=== PATIENT | male | born 1950 | race Caucasian/White ===

== ENCOUNTER 2018-08-27 11:31 | Outpatient (CLI) | payer MEDICARE, BC, SELFPAY ==
[2018-08-27 12:49] LABS: HGB 14.9 g/dL (13.5-17.5); Mean Corp. HGB Concentration 34.7 g/dL (32.0-36.0); Mean Corpuscular Hemoglobin 31.2 pg (27.0-33.0); Mean Corpuscular Volume 90.1 fL (80-95); Mean Platelet Volume 9.6 fL (8.0-11.0); Platelet Count 224 x1000/uL (130-400); RBC 4.77 m/cumm (4.50-6.00); RBC Distribution Width 12.4 % (11.8-14.1); White Blood Cell Count 7.56 k/cumm (4.4-10.8)
[2018-08-27 13:53] LABS: ALT 35 U/L (12-78); AST 31 U/L (15-37); Albumin 3.6 g/dL (3.4-5.0); Alkaline Phosphatase 89 U/L (46-116); Anion Gap 7.4 mmol/L (3-11); BUN 14 mg/dL (7-18); Bilirubin, Total 0.5 mg/dL (0.2-1.0); CO2 33.6 mmol/L (21.0-32.0); CREATININE 0.96 mg/dL (0.70-1.30); Calcium 9.4 mg/dL (8.5-10.1); Chloride 100 mmol/L (98-107); Cholesterol 243 mg/dL (50-200); Glucose 99 mg/dL (70-100); HDL Cholesterol 54 mg/dL (40-60); LDL CHOLESTEROL 166 mg/dL (<100); Potassium 3.7 mmol/L (3.5-5.1); Sodium 141 mmol/L (136-145); Total Protein 7.3 g/dL (6.4-8.2); Triglyceride 139 mg/dL (30-150)
== END 2018-08-27 11:51 ==
PROVIDERS: PCP Family Medicine; Visit Provider Family Medicine
DX: C85.91 Non-Hodgkin lymphoma, unspecified, lymph nodes of head, face, and neck (principal); I10 Essential (primary) hypertension; E78.5 Hyperlipidemia, unspecified
CPT/HCPCS: 36415; 80053; 80061; 83721; 85027

== ENCOUNTER 2019-08-29 11:49 | Outpatient (CLI) | payer MEDICARE, BC, SELFPAY ==
[2019-08-29 13:43] LABS: ALT 36 U/L (16-63); AST 26 U/L (15-37); Albumin 3.7 g/dL (3.4-5.0); Alkaline Phosphatase 85 U/L (46-116); Anion Gap 10.3 mmol/L (3-11); BUN 16 mg/dL (7-18); Bilirubin, Total 0.6 mg/dL (0.2-1.0); CO2 31.7 mmol/L (21.0-32.0); CREATININE 0.85 mg/dL (0.70-1.30); Calcium 9.2 mg/dL (8.5-10.1); Calculated LDL 149 mg/dL (<100); Chloride 97 mmol/L (98-107); Cholesterol 230 mg/dL (<200); Glucose 99 mg/dL (74-106); HDL Cholesterol 46 mg/dL (40-60); Potassium 3.2 mmol/L (3.5-5.1); Sodium 139 mmol/L (136-145); Total Protein 7.3 g/dL (6.4-8.2); Triglyceride 176 mg/dL (<150)
== END 2019-08-29 12:09 ==
PROVIDERS: PCP Family Medicine; Visit Provider Family Medicine
DX: I10 Essential (primary) hypertension (principal)
CPT/HCPCS: 36415; 80053; 80061

== ENCOUNTER 2021-02-25 04:45 | Outpatient (CLI) | payer MEDICARE, BC, SELFPAY ==
[2021-02-25 12:21] LABS: ALT 38 U/L (16-63); AST 31 U/L (15-37); Albumin 3.9 g/dL (3.4-5.0); Alkaline Phosphatase 89 U/L (46-116); Anion Gap 7.8 mmol/L (3-11); BUN 18 mg/dL (7-18); Bilirubin, Total 0.5 mg/dL (0.2-1.0); CO2 33.2 mmol/L (21.0-32.0); Calcium 9.4 mg/dL (8.5-10.1); Chloride 99 mmol/L (98-107); Glucose 99 mg/dL (74-106); Potassium 3.4 mmol/L (3.5-5.1); Sodium 140 mmol/L (136-145); Total Protein 7.4 g/dL (6.4-8.2)
== END 2021-02-25 04:46 | disposition home or self-care (01) ==
PROVIDERS: PCP Family Medicine; Visit Provider Family Medicine
DX: I10 Essential (primary) hypertension (principal)
CPT/HCPCS: 36415; 80053

== ENCOUNTER 2021-05-28 02:30 | Outpatient (CLI) | payer MEDICARE, BC, SELFPAY ==
--- NOTE | 2021-05-28 08:45 | DI.CT_ITS ---
Exam(s) CT ABDOMEN PELVIS W EXAM: CT ABDOMEN PELVIS W CLINICAL HISTORY: s/p hernia repair feels wrong,rt inguinal hernia,k40.90. TECHNIQUE: Imaging Protocol: Axial computed tomography images with coronal and sagittal reformatted images were created and reviewed CONTRAST MATERIAL: Intravenous: Omnipaque 350 Contrast volume:100 ml Oral: yes COMPARISON: No exams were available for comparison FINDINGS: ABDOMEN: Lung Bases: Normal where visualized. Liver: Normal density. No measurable mass. Gallbladder and biliary tract: No radiodense calculus or dilation. Pancreas: Normal density, no abnormal calcifications or inflammatory process. Spleen: Normal. Kidneys: Normal size, contour and axis. No radiodense stones or obstructive uropathy. No masses seen. Tiny bilateral cortical cysts Adrenal glands: No masses seen. Abdominal Aorta: Abdominal portion non-dilated. Atherosclerotic changes greater distally. Soft tissues: Small fatty containing umbilical hernia. PELVIS: Bladder: No gross wall thickening. No calculi.No focal mass. Bowel: Diverticulosis throughout, most prominent in the sigmoid. No evidence of diverticulitis. No obstruction or bowel wall thickening. Appendix normal. Peritoneal cavity: No ascites, collection or mesenteric inflammatory response. Bones: Severe degenerative disc changes. Reproductive organs: Within normal limits. Lymph nodes: Unremarkable. Soft tissues: Surgical clips in the right inguinal region. No evidence of recurrent hernia. No mass or fluid collection. Impression: No evidence for recurrent right inguinal hernia. Severe diverticulosis. No evidence of diverticulit is. RADIATION DOSE DELIVERED: 659.13mGy.cm Total DLP DATA REPOSITORY: All CT scans at this facility are submitted to the National Radiology Data Registry (NRDR) Dose Index Registry (DIR) with the [employer] (ACR). RADIATION OPTIMIZATION: All CT scans at this facility use at least one of these dose optimization te chniques: automated exposure control; mA and/or kV adjustment per patient size (includes targeted exa ms where dose is matched to clinical indication); or iterative reconstruction.
[2021-05-28] MEDS: Omnipaque 350 MG/ML 100 ML BTL IJ (15:13)
[2021-05-28] MEDS: Omnipaque 350 MG/ML 50 ML BTL PO (15:14)
[2021-05-28] MEDS: Breeza Beverage 473 ML BTL PO ×2 (15:14→15:15)
== END 2021-05-28 02:50 ==
PROVIDERS: PCP Family Medicine; Visit Provider Family Medicine
DX: K40.90 Unilateral inguinal hernia, without obstruction or gangrene, not specified as recurrent (principal); K42.9 Umbilical hernia without obstruction or gangrene; K57.30 Diverticulosis of large intestine without perforation or abscess without bleeding; Z98.890 Other specified postprocedural states; Z01.812 Encounter for preprocedural laboratory examination
CPT/HCPCS: 74177; 82565; J3490; Q9967

== ENCOUNTER 2022-01-20 02:18 | Outpatient (CLI) | payer MEDICARE, BC, SELFPAY ==
[2022-01-20 11:19] LABS: ALT 32 U/L (16-63); AST 29 U/L (15-37); Albumin 3.5 g/dL (3.4-5.0); Alkaline Phosphatase 84 U/L (46-116); Anion Gap 3.5 mmol/L (3-11); BUN 18 mg/dL (7-18); Bilirubin, Total 0.6 mg/dL (0.2-1.0); CO2 32.5 mmol/L (21.0-32.0); CREATININE 0.9 mg/dL (0.70-1.30); Calculated LDL 188 mg/dL (<100); Chloride 99 mmol/L (98-107); Cholesterol 267 mg/dL (<200); Glucose 109 mg/dL (74-106); HDL Cholesterol 62 mg/dL (40-60); Potassium 3.1 mmol/L (3.5-5.1); Sodium 135 mmol/L (136-145); Total Protein 7.7 g/dL (6.4-8.2); Triglyceride 89 mg/dL (<150)
[2022-01-20 19:50] LABS: PSA, Diagnostic 0.9 ng/mL (<=6.5)
== END 2022-01-20 02:19 | disposition home or self-care (01) ==
LOC: LBO 02:18
PROVIDERS: PCP Family Medicine; Visit Provider Family Medicine
DX: I10 Essential (primary) hypertension (principal); N40.0 Benign prostatic hyperplasia without lower urinary tract symptoms
CPT/HCPCS: 36415; 80053; 80061; 84153

== ENCOUNTER → 2022-06-17 00:48 | Outpatient (CLI) | payer MEDICARE, BC, SELFPAY ==
--- OUTSIDE RECORDS SUMMARY | 2022-06-17 00:50 | XMS_ITS | Encounter Summary ---
:1950 Author Organization [facility] [place] [address] Care Team Providers Name Role Phone Elizabeth Sanders MD Primary Care Provider Encounter Details Date Type Department Care Team Description 11/20/2013 Orders Only Radiation Oncology at CongEdis denson MD [address] RADIATION ONCOLOGY [facility] [phone] Social History Tobacco Use Types Packs/Day Years Used Date Smoking Tobacco: Former Cigarettes 08 22 Comments: quit 1996 Alcohol Use Standard Drinks/Week Comments No 0 (1 standard drink = 0.6 oz pure used to drink heavily, stopped alcohol) 1989 Sex Assigned at Date Recorded Not on file documented as of this encounter Plan of Treatment Not on filedocumented as of this encounter Procedures Procedure Name Priority Date/Time Associated Diagnosis Comme [facility] FILM LIBRARY Routine 11/20/2013 7:39 AM Results f or this STORAGE ONLY MR EDT procedure ar e in HEAD the results section. documented in this encounter Results Film Library- Storage only MR Head (11/20/2013 7:39 AM EDT) Anatomical Region Laterality Modality Other Specimen (Source) Anatomical Collection Method Collection Time Re ceived Time Location / / Volume Laterality 11/20/2013 7:39 AM EDT Narrative 11/21/2013 7:49 AM EDT This is a Non-reportable exam Procedure Note 11/21/2013 This is a Non-reportable exam Edis Gar MD IMG FILM LIBRARY ORDERABLES documented in this encounter Visit Diagnoses Not on filedocumented in this encounter Care Teams Felt Coverer Relationship Specialty Start Date End Date Elizabeth Sanders MD PCP - General 10/18/[address] [place] [address] documented as of this encounter
--- OUTSIDE RECORDS SUMMARY | 2022-06-17 00:50 | XMS_ITS | Encounter Summary ---
:1950 Author Organization [facility] Address [address] [place] [address] Care Team Providers Name Role Phone Elizabeth Sanders MD Primary Care Provider Encounter Details Date Type Department Care Team Description 11/14/2013 Notes Only Radiation Oncology at Masha Sharma, [facility] OFFICE OF CARE [address] [place] [phone] Social History Tobacco Use Types Packs/Day Years Used Date Smoking Tobacco: Former Cigarettes 30 Comments: quit 1996 Alcohol Use Standard Drinks/Week Comments No 0 (1 standard drink = 0.6 oz pure used to drink heavily, stopped alcohol) 1989 Sex Assigned at Date Recorded Not on file documented as of this encounter Progress Notes Masha Sharma MSW - 11/14/2013 2:14 PM EDT Reason for Referral: Brief assessment of social and emotional needs. Met with pt before sim today. Social Supports: Pt is single. He has a daughter in [facility] and a son in [facility]. He indicated he has plenty of people available for support. Living Situation/Daily Activities/Transportation: Pt manages his daily chores and activities. He will drive himself to treatments. 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 He does not have issues with finances or insurance. Advance Directives: Pt has completed his advance directives and a copy is in his record. Adjustment to Illness/Mental Health Issues: Pt indicated he feels well supported and has a positive outlook. Identified Needs: Pt did not identify any specific needs at thsis time. Referrals: None at this time. Plan: Informed pt of my availability and will follow for support and resources. documented in this encounter Plan of Treatment Not on filedocumented as of this encounter Visit Diagnoses Not on filedocumented in this encounter Care Teams Family Services Manager Relationship Specialty Start Date End Date Elizabeth Sanders MD PCP - General 10/18/[address] [place] [address] [address] [place] [address] documented as of this encounter
--- OUTSIDE RECORDS SUMMARY | 2022-06-17 00:50 | XMS_ITS | Encounter Summary ---
:1950 Author Organization [facility] [place] [address] Care Team Providers Name Role Phone Elizabeth Sanders MD Primary Care Provider Encounter Details Date Type Department Care Team Description 11/14/2013 Ancillary Appointment Radiation Oncology at Danitza Gar [facility] [address] [place], [place] RADIATION ONCOL OGY [address] [place], [place] [phone] (Wo rk) Social History Tobacco Use Types Packs/Day Years Used Date Smoking Tobacco: Former Cigarettes 08 22 Comments: quit 1996 Alcohol Use Standard Drinks/Week Comments No 0 (1 standard drink = 0.6 oz pure used to drink heavily, stopped alcohol) 1989 Sex Assigned at Date Recorded Not on file documented as of this encounter Progress Notes Edis Gar MD - 11/14/2013 10:03 AM EDT Simulation Note for External Beam Radiation Treatment Planning [facility] Shadi Falcon is a 63 y.o. 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 No changes were made from the plan as documented in the original simulationorder and instructions. Briefly, he was immobilized using a 3 point aquaplast custom mask and a 2.5mm slice thickness CT scan of the patient's head was then obtained. This scan was performed to delineate both target volumes and organs/structures at risk. These images will be used to create a customized treatment plan employing multileaf collimators and beams-eye view to treat the target to prescription dose while maximally sparing organs at risk, with the overall goal of maximizing the likelihood of a favorable disease response while minimizing the likelihood of any short term side effects or joint terminal attack controller complications of therapy. I anticipate his prescription dose will be 25.2 Gy to the right orbital mass, delivered in daily 1.8 Gy fractions over the course of 3 weeks. Anticipate therapy to begin within the next 10-14 days. Furthermore, I anticipate this patient will require 3D conformal treatment planning as multiple conformal portals will be contructed to adequate cover the volume of interest (in this case, the tumor)with close margins that protect immediately adjacent structures (including his lens, retina, and contralateral eye). The patient tolerated this procedure well, and was provided instructions with regard to upcoming appointments. documented in this encounter Procedure Notes Provider, Scanning - 11/20/2013 4:09 PM EDTAssociated Order(s): SCAN DOC: MRI/MRA documented in this encounter Plan of Treatment Not on filedocumented as of this encounter Procedures Procedure Name Priority Date/Time Associated Diagnosis Comme nts MRI/MRA SCAN 11/20/2013 4:09 PM Results f or this EDT procedure are i n the results section . documented in this encounter Results SCAN DOC: MRI/MRA (11/20/2013 4:09 PM EDT) Anatomical Region Laterality Modality Other Narrative 11/21/2013 7:27 AM EDT Procedure Note Provider, Scanning - 11/20/2013 4:09 PM EDT Scanning Provider MEDIA MGR SCAN EXT ORDR/RSLT documented in this encounter Visit Diagnoses Not on filedocumented in this encounter Care Teams Milk Receiver Tank Truck Relationship Specialty Start Date End Date Elizabeth Sanders MD PCP - General 10/18/[address] [place] [address] documented as of this encounter
--- OUTSIDE RECORDS SUMMARY | 2022-06-17 00:50 | XMS_ITS | Encounter Summary ---
:1950 Author Organization [facility] [place] [address] Care Team Providers Name Role Phone Elizabeth Sanders MD Primary Care Provider Encounter Details Date Type Department Care Team Description 05/14/2015 Interpretation Only Radiology at [facility] Ce nter None [address] [place] [address] Social History Tobacco Use Types Packs/Day Years [...] Name Priority Date/Time Associated Diagnosis Comme nts XR FLUORO NO RAD Routine 05/14/2015 6:27 AM Resul ts for this <1HR - RADIOLOGY EDT procedure a re in USE the results section. documented in this encounter Results XR Fluoro <1Hr - Radiology Use (05/14/2015 6:27 AM EDT) Anatomical Region Laterality Modality N/A Radiographic Imaging Specimen (Source) Anatomical Collection Method Collection Time Re ceived Time Location / / Volume Laterality 05/14/2015 6:27 AM EDT Narrative 05/14/2015 6:27 AM EDT APD Historical Result Principal Programmer: ??ADRIANA ??ESCHBACH IMAGE-INTENSIFIER FILMS: INDICATION: ??Left L4-5 facetectomy. FINDINGS: A total of 2.6 seconds of fluoro time wa s utilized by Clover Tim MD. ??Estimated dose is 1.87 mGy. ??Two lateral images of the l umbosacral junction are obtained. ??Surgical instrument indicates the L4-5 interspace. ??No Radiologist wa s present for this exam. Adriana Michelle, DO ARIC/franco [id number] CC: Procedure Note Unknown - 01/21/2019Formatting of this n ote might be different from the original. APD Historical Result Principal Programmer: ADRIANA MONTANO IMAGE-INTENSIFIER FILMS: INDICATION: Left L4-5 facetectomy. FINDINGS: A total of 2.6 seconds of fluoro time wa s utilized by Clover Tim MD. Estimated dose is 1.87 mGy. Two lateral images of the lum bosacral junction are obtained. Surgical instrument indicates the L4-5 interspace. No Radiologist was present for this exam. Adriana Montano, DO ARIC/franco [id number] CC: Unknown IMG FLUORO ORDERABLES documented in this encounter Visit Diagnoses Not on filedocumented in this encounter Care Teams Machine Mover Relationship Specialty Start Date End Date Elizabeth Sanders MD PCP - General 10/18/[address] [place] [address] documented as of this encounter
--- OUTSIDE RECORDS SUMMARY | 2022-06-17 00:50 | XMS_ITS | Encounter Summary ---
:1950 Author Organization [facility] [place] [address] Care Team Providers Name Role Phone Elizabeth Sanders MD Primary Care Provider Encounter Details Date Type Department Care Team Description 11/27/2020 Notes Only Radiation Oncology at Camila Caro RN [address] [phone] Social History Tobacco Use Types Packs/Day Years Used Date Smoking Tobacco: Former Cigarettes 08 22 Comments: quit 1996 Alcohol Use Standard Drinks/Week Comments No 0 (1 standard drink = 0.6 oz pure used to drink heavily, stopped alcohol) 1989 Sex Assigned at Date Recorded Not on file documented as of this encounter Progress Notes Camila Caro RN - 11/27/2020 1:19 PM EDT Radiation Oncology Nurse Note [place], [place] IDENTIFICATION: Shadi Falcon diagnosed with lymphoma of the right orbit who completed radiotherapy at the [facility] in [facility] 2013. Patient came by clinic asking for more Jeans cream. He applys it to his face around his right eye PRN .He states it provides cooling relief when he occasionally feels discomfort in this region especially if he is out in the sun. He has no redness in this area or discoloration. He states he has come tothis clinic before asking for the cream and was provided it with no questions asked. I explained it is important that a nurse assess his symptoms of why he would need this cream so longafter the radiation treatments were administered. He states that he feels fine, he just likes how the cream feels on his face. He was provided a tube of the Jeans cream & showed the web site on tube of how to order more. Heexpressed appreciation for this. I also noticed that he last saw Dr Hernandez 01/01/2014 when her note mentions f/u in 6 months and there was no f/u since then. He said it was his impression that he was all set and didn't need any more follow up appointments. He is feeling well and doesn't feel any appointments are necessary. Dr Hernandez and Dr Gar updated via this note. documented in this encounter Plan of Treatment Not on filedocumented as of this encounter Visit Diagnoses Not on filedocumented in this encounter Care Teams Chef Saucier Relationship Specialty Start Date End Date Elizabeth Sanders MD PCP - General 10/18/13 [address] [place] [address] documented as of this encounter
--- OUTSIDE RECORDS SUMMARY | 2022-06-17 00:50 | XMS_ITS | Encounter Summary ---
:1950 Author Organization [facility] [place] [address] Care Team Providers Name Role Phone Elizabeth Sanders MD Primary Care Provider Reason for Visit Reason Comments On Treatment Visit Encounter Details Date Type Department Care Team Description 11/27/2013 Office Visit Radiation Oncology at Edis Gar L ymphoma (Primary Dx) [facility] [address] [place], [place] RADIATION ONCOL OGY [address] [place], [place] [phone] (Wo rk) Social History Tobacco Use Types Packs/Day Years Used Date Smoking Tobacco: Former Cigarettes 08 22 Comments: quit 1996 Alcohol Use Standard Drinks/Week Comments No 0 (1 standard drink = 0.6 oz pure used to drink heavily, stopped alcohol) 1989 Sex Assigned at Date Recorded Not on file documented as of this encounter Progress Notes Edis Gar MD - 11/27/2013 4:53 PM EDT [facility] On Treatment Visit Patient ID: Shadi Falcon is a 63 y.o. male currently undergoing definitive radiotherapy to the right orbit for stage IAE MALT of the retroorbital region. Plan Details: Daily Dose: 1.8 Gy Current Dose: 3.6 Gy in 2 fractions Planned Dose: 25.4 Gy in 14 fractions Subjective / Interval History:: Today, the morning following his first fraction, he noted worsening swelling in the right orbit. It was not accompanied by any visual changes or pain. By the time he was seen today in clinic approx 4PM, the swelling had decreased by approx 50%. Pain Assessment: Pain score today is 0/10. Objective: There were no vitals taken for this visit. General - appears well, no distress Skin - no erythema HEENT - prominence of tissues in supraorbital region. EOM's intact. No proptosis that I am able to discern. Portal Imaging Review: I have personally reviewed this patient's interval portal imaging to confirm accurate positioning and alignment which matches the patient's original approved treatment planning images. Assessment: Tolerating radiotherapy as expected although with significant peritumoral edema. Plan: Continue radiotherapy as prescribed. Rx dosepack for edema to start tomorrow AM if swelling recurs. documented in this encounter Plan of Treatment Not on filedocumented as of this encounter Visit Diagnoses Diagnosis Lymphoma - Primary Other malignant lymphomas, unspecified s ite, extranodal and solid organ sites documented in this encounter Care Teams Content Architect Relationship Specialty Start Date End Date Elizabeth Sanders MD PCP - General 10/18/[address] [place] [address] [address] [place] [address] documented as of this encounter
--- OUTSIDE RECORDS SUMMARY | 2022-06-17 00:50 | XMS_ITS | Encounter Summary ---
:1950 Author Organization [facility] [address] Care Team Providers Name Role Phone Elizabeth Sanders MD Primary Care Provider Reason for Visit Reason Comments Non-hodgkin's Lymphoma Encounter Details Date Type Department Care Team Description 11/13/2013 Office Visit Radiation Oncology at [facility] O rbital lymphoma [facility] (Primary Dx) [address] [place], [place] RADIATION ONCOL OGY [address] [place], [place] [phone] [id number] (Wo rk) Social History Tobacco Use Types Packs/Day Years Used Date Smoking Tobacco: Former Cigarettes 30 Comments: quit 1996 Alcohol Use Standard Drinks/Week Comments No 0 (1 standard drink = 0.6 oz pure used to drink heavily, stopped alcohol) 1989 Sex Assigned at Date Recorded Not on file documented as of this encounter Last Filed Vital Signs Vital Sign Reading Time Taken Comments Blood Pressure 129/75 11/13/2013 11:00 AM EDT Pulse 63 11/13/2013 11:00 AM EDT Temperature - - Respiratory Rate 16 11/13/2013 11:00 AM EDT Oxygen Saturation 99% 11/13/2013 11:00 AM EDT Inhaled Oxygen Concentration - - Weight - - Height - - Body Mass Index - - documented in this encounter Progress Notes Edis Gar MD - 11/13/2013 1:13 PM EDT Radiation Oncology New Patient Consultation [facility] Reason for Consultation: Stage IAE MALT lymphoma right orbit Referring Physician / Service: David / Spencer HPI: Shadi Falcon is a 63-year-old man who is referred to us for definitive radiotherapy for 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 He noted the onset of right eyelid edema and ptosis and erythema which extended through his right lower neck, initially in the summer 2010. He believes that this may have been instigated by an insect bite. He was seen in a local Emergency Room and prescribed two courses of Bactrim without any improvement. Over time eventually the swelling and erythema partially resolved. However, he experienced progressive diplopia as well as retroorbital pressure, promptingreferral to Ophthalmology in winter 2010. He saw Dr. Mantilla in [place] who fitted him for prisms atthat time. He has serially seen her with increasing refractory requirements. Royl ptosis was noted earlier this year. MRI obtained on 08/22/13 demonstrated a 4-cm right orbital mass that abutted but did not invade the surrounding muscles and optic nerve. He was seen by ENT in [place] for transnasal biopsy on 09/24/13, which demonstrated a low-grade B-cell lymphoma with diagnosis favoring MALT. This pathology has been reviewed and corroborated at [facility]. Mr. Falcon was seen by Dr. Hernandez on 10/18/13 who recommended a completion of staging workup as well as referral for radiotherapy. Staging CT of the chest, abdomen, and pelvis as well as the neck did not demonstrate anything that was overtly concerning for metastatic disease. Bone marrow biopsy performed yesterday is still pending. He is scheduled to follow up with Dr. Hernandez after completing radiotherapy, 01/02/14. Review of Systems: Positive for right neck stiffness, diplopia on downward gaze, as well as occasional right upper eyelid edema and erythema. When the eye pain is severe, it can involve headaches radiating superiorly throughout the right side. He denies fevers, weight loss, and night sweats. 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 A comprehensive 14 point review of systems was conducted with this patient and is otherwise negative except as documented above. Past Medical History Diagnosis Date ??? HTN (hypertension) ??? Arthralgia The patient was specifically asked and denies a history of prior radiotherapy to this region, systemic sclerodema, or active systemic lupus. Past Surgical History Procedure Date ??? Tonsillectomy and adenoidectomy 4 years old ??? Inguinal hernia repair 1995 right ??? Varicose vein surgery right groin Medication Sig ??? ATENOLOL-CHLORTHALIDONE ORAL Take by mouth. 100-25 mg ? ? GLUCOSAM SUL NA/CHONDR MENDOZA A NA (GLUCOSAMINE & CHONDROIT SUL.NA ORAL) Take by mouth daily. ??? aspirin 81 mg EC tablet Take 81 mg by mouth daily. ??? Tadalafil (CIALIS) 20 mg Tab 20MG, PO, as directed ??? acetaminophen (TYLENOL) 650 mg CR tablet Take 650 mg by mouth every 8 hours as needed. Do not exceed 6 tabs in 24 hours ??? ibuprofen (ADVIL;MOTRIN) 200 mg tablet Take 200 mg by mouth every 6 hours as needed. ??? zolpidem (AMBIEN) 10 mg tablet Take 10 mg by mouth nightly as needed. ??? ascorbic acid (VITAMIN C) 500 mg tablet Take 500 mg by mouth daily. He doesn't always take it daily ??? [place]-3 Fatty Acids-Vitamin E 1,000 mg Cap Take by mouth daily. He doesn't always take it daily ??? multivitamin (THERAGRAN) tablet Take 1 tablet by mouth daily. ??? triamcinolone (KENALOG) 0.1 % ointment Apply topically as needed. For itching corner of eye ??? ZINC ACETATE, BULK, MISC by Misc.(Non-Drug; Combo Route) route. 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 Estimated travel time by the patient to [facility] is 15 minutes, one-way. KPS: 90 Smoking: quit 1997 Alcohol: quit 1989 Illicits: thi Family History: Reviewed with the patient and/or in the medical system and for the above diagnosis and is positive for lymphoma in his father and leukemia in the mother, both in their 70s at diagnosis and . Physical Exam: Filed Vitals: 11/13/13 1100 BP: 129/75 Pulse: 63 Resp: 16 General: alert, well appearing, and in no distress HEENT: Atraumatic, normocephalic. EOMs intact, pupils reactive. Slight ptosis on right and fullness of suprapalpebral fissure. No erythema or proptosis noted. Neck: Normal to inspection and No adenopathy Respiratory: clear to auscultation, no wheezes, rales or rhonchi, symmetric air entry Cardiovascular: regular rate and rhythm and no murmurs Abdomen: abdomen is soft without significant tenderness, masses, organomegaly or guarding. Neurologic: alert, oriented x 3, no defects noted in general exam. Cranial nerve II-XII tested and were intact bilaterally. Extremities: peripheral pulses normal, no pedal edema, no clubbing or cyanosis Lymphatic: No palpable lymphadenopathy in the supraclavicular, infraclavicular, anterior/posterior cervical, axillary, regions. Pathology Review: Pathology was reviewed in the medical record, as per HPI and is summarized below: Site: endonasal biopsy, right orbital mass Histology / Grade: low grade b-cell lymphoma, favoring MALT Margin / Maged status: n/a Other prognostic factors: n/a Imaging Review: I personally reviewed the images from the CT of the head obtained 09/04/13 and notedthe findings of an ill-defined soft tissue mass in the superomedial right orbit. MRI images are not available for us to review in the PACS system, but report was reviewed as per HPI. 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 Staging workup with bone marrow biopsy is still pending, and his most recentMRI was approximately three months ago. Plan: I have discussed the logistics, rationale, risks, and complications associated with external beam radiotherapy to the right orbit. We discussed that the likely outcome exceeds a local control of 95%, although that radiotherapy will not preclude him from developing other lymphomas in the future. With regard to the logistics of radiotherapy, he understands that I am referring him for a repeat MRI to better delineate the soft tissue extent of the orbital lymphoma component. This will be used notonly to restage him, but also as part of radiotherapy planning to better delineate our target. This will help us minimize our treatment volume so as to increase the likelihood of sparing the ipsilateral lacrimal gland as well as the lens. Mr. Falcon signed an informed consent stating that he wishes to proceed with therapy. We will see him back tomorrow for a planning simulation CT scan and will plan to start radiotherapy in the next one to two weeks. Anticipated course of therapy will be delivered over the course of 14 fractions to a total dose of 25.2 Gy. All of this patient's questions were answered to his fullest satisfaction, andwe have provided him with our contact information should any further questions or concerns arise. Rocky, Camila Mercado RN - 11/13/2013 11:02 AM EDT RADIATION ONCOLOGY NURSING INITIAL NURSING ASSESSMEN ADVANCE DIRECTIVES: In [facility] [ yes ] Has documents [ ] Will bring in [ ] IF NO: Advance Directive pamphlet provided: [ ] Referral to Care Management : [ ] PRESENTING SYSTEMS and PATHOLOGY: 4 years ago: Had swelling, rash , itching right corner of eye. He went to ER with severe swelling down into his neck and was told it was an insect bite. He started having light shows burst of light in vision of right eye around 2010. He started to have double vision about 3 years ago . He saw an eyespecialist earlier this year and was told there was a mass behind the right eye. REVIEW OF SYSTEMS: Review of Systems Constitutional: Negative. Negative for fever, chills, activity change, appetite change, fatigue and unexpected weight change. HENT: Positive for neck stiffness (right side of neck, ever since insect bite about 4 yrs ago.). Negative for hearing loss, ear pain, sore throat, trouble swallowing, dental problem, voice change, tinnitus and ear discharge. Eyes: Positive for redness (right upper eye lid puffy and pink) and visual disturbance (diplopia). Negative for discharge and itching. Eye pain: denies pain, but has pressure w/ some relief after bx 09/24/13. Respiratory: Negative. Negative for apnea, cough, choking, shortness of breath and wheezing. Cardiovascular: Negative. Negative for chest pain and palpitations. Gastrointestinal: Negative for nausea, vomiting, abdominal pain, diarrhea, constipation, blood in stool and anal bleeding. Genitourinary: Negative. Negative for dysuria, hematuria and difficulty urinating. Musculoskeletal: Negative for back pain. Arthralgias: right knee, left shoulder occasional discomfort. Skin: Negative. Neurological: Negative. Negative for dizziness, facial asymmetry, speech difficulty, weakness, light-headedness, numbness and headaches. Psychiatric/Behavioral: Negative. Negative for sleep disturbance. The patient is not nervous/anxious. Prior Radiotherapy: [x ] no [ ] yes Site: Date: Facility: Prior Chemotherapy: [ x ] no [ ] yes Drug: Oncologist- LastTreatment: RADIATION SPECIFIC REVIEW: NO: YES: Claustrophobia or requires sedation for MRIs x Allergy to CT or MRI contrast agent or iodine or shellfish x Diabetic and on metformin x Metal in body, implanted device, worked with metal, body piercings,braces x Dentures or hearing device x Pacemaker x Difficulty breathing while lying flat x Kidney problems/creatinine x Balance difficulty: [x ]no [ ]yes At risk for fall: [x ] no [ ] yes If yes, actions implemented to prevent fall: Patient/family instructed to avoid independent ambulation. Use wheelchair and ask for assistance of staff while in the clinic. ADL [ x ] no limits [ ] needs dressing assistance [ ] needs meal assistance Assistive device:[ x ]none [ ]cane [ ]walker [ ]wheelchair [ ]other: explain PAIN ASSESSMENT: [ 0 ] out of 10 slight pressure, no pain Location: right eye Description: [ ] Dull [ ] Sharp [ ] Burning [ ] Throbbing [ ] Radiating [ x ] Continuous [ ]Intermittent Aggravating Factors: [ ] Movement [ ] Position [ ]Immobility [ ]Other Alleviating Factors: [ ]Medication [ ] Positioning [ ] Other Current Pain Management Plan: [ ]Satisfied [ ] Not satisfied SOCIAL ASSESSMENT: See [facility] social assessment information entered. Support Systems: lives alone transportation plan: [x ]private vehicle [ ] RCT needs Social Work referral [ ] Unknown at this time needs Social Work referral Barriers to treatment: denies Referrals/Interventions: LEARNING STYLE: Visual and verbal, wants written material and verbal discussion. TEACHING: LEARNING STYLE: Visual and verbal, wants written material and verbal discussion. Language barriers: [x ] no [ ] yes [will provide education on day ] [facility] Radiation therapy and You?? and folder given [ ] Site Specific literature provided and reviewed with patient [ ] Other: mitul's cream given documented in this encounter Miscellaneous Notes Miscellaneous - Provider, Scanning - 11/13/2013 3:39 PM EDT documented in this encounter Plan of Treatment Not on filedocumented as of this encounter Visit Diagnoses Diagnosis Orbital lymphoma - Primary Other malignant lymphomas of lymph nodes of head, face, and neck documented in this encounter Care Teams Government Employee Relationship Specialty Start Date End Date Elizabeth Sanders MD PCP - General 10/18/[address] [place] [address] [address] [place] [address] documented as of this encounter
--- OUTSIDE RECORDS SUMMARY | 2022-06-17 00:50 | XMS_ITS | Encounter Summary ---
:1950 Author Organization [facility] [place] [address] Care Team Providers Name Role Phone Elizabeth Sanders MD Primary Care Provider Encounter Details Date Type Department Care Team Description 01/01/2014 Follow-Up Hematology Oncology at Natalie Hernandez MALT lymphoma (Primary [facility] MD Snehal Dx) [address] [place] [address] HEMATOLOGY/ONCOLOGY [phone] DEPT. [place], [place] [address] (Wo rk) Social History Tobacco Use Types Packs/Day Years Used Date Smoking Tobacco: Former Cigarettes 1 30 Comments: quit 1996 Alcohol Use Standard Drinks/Week Comments No 0 (1 standard drink = 0.6 oz pure used to drink heavily, stopped alcohol) 1989 Sex Assigned at Date Recorded Not on file documented as of this encounter Last Filed Vital Signs Vital Sign Reading Time Taken Comments Blood Pressure 132/77 01/01/2014 8:42 AM EDT Pulse 54 01/01/2014 8:42 AM EDT Temperature 36.4 ??C (97.5 ??F) 01/01/2014 8:42 AM EDT Respiratory Rate 16 01/01/2014 8:42 AM EDT Oxygen Saturation 100% 01/01/2014 8:42 AM EDT Inhaled Oxygen - - Concentration Weight 68.7 kg (151 lb 8 oz) 01/01/2014 8:42 AM EDT Height 165.5 cm (5' 5.16) 01/01/2014 8:42 AM measured in clinic EDT Body Mass Index 25.09 01/01/2014 8:42 AM EDT documented in this encounter Progress Notes Wilma Hernandez MD - 01/01/2014 8:43 AM EDT Hematology Clinic [facility] [place] [id number] FOLLOW-UP PATIENT EVALUATION PROBLEM LIST: Patient Active Problem List Diagnosis ??? Hypertension ??? MALT lymphoma 3-4 years of increasing right upper eyelid edema, eyelid droop, diplopia, flashing lights and increasing retroorbital pressure 08/22/13 MRI (FA) revealed 4x1.8x1.8cm mass is superiomedial right orbit without definite invasive qualities 09/04/13 CT (FA) right proptosis with large irregularly shaped homogenous soft tissue mass within the right orbit with both extraconal and intraconal involvement with subtle associated bony remodelingand expansion of the bony right orbit 09/24/13 biopsy (FA) [place] lymphoma of small B lymphocytes, probably extranodal marginal zone (vs. Lymphoplasmacytic lymphoma), CD19+, CD20+, FMC7+, HLADR+, CD5-, CD10-, CD23-, CD38- Hep b/c neg. M spike 0.19 gm/dl. Normal [facility] XRT for orbital MALT completed 12/13/13. Daily Dose: 1.8 Gy Current Dose: 25.4 Gy in 14 fractions Planned Dose: 25.4 Gy in 14 fractions INTERIM HISTORY OF PRESENT ILLNESS: It was my pleasure to see Shadi Falcon back in clinic today. Shadi Falcon is a 63 y.o. year old male being seen for follow-up evaluation of Orbital MALT lymphoma. He has been well. He tolerated XRT well. He returns today for his first f/u after completion of XRT on 12/13/13. See treatment in problem list above. He had some skin burning but otherwise well tolerated. He also had some swelling in the upper eyelid and needed some prednisone X 5 days which helped a lot. He had a nice trip to [place] before the treatment. He has no diploplia. Baseline blurred vision unchanged. Notices that he needs new glasses. ROS Energy level:stable Pain: No Appetite:good Fevers/chills/sweats:No Bruising/bleeding/melena:No Recent infections:No HEENT: see above Nausea/vomiting/diarrhea/constipation:No SOB/[place]/chest pain:No Change in adenopathy or other masses:No Unexpected weight loss or gain:No Skin rashes or petechiae:No Musculoskeletal complaints:No Extremities: Negative upper and lower bilaterally Neurologic symptoms:No Mood: Normal Sleep: Difficulty sleeping MEDS: No outpatient prescriptions have been marked as taking for the 01/01/14 encounter (Follow-Up) with Wilma Hernandez MD. Allergies: No Known Allergies INTERIM SOCIAL HISTORY Changes in job, home situation, tobacco or alcohol use: see HPI PHYSICAL EXAM There were no vitals taken for this visit. There is no height or weight on file to calculate BSA. GENERAL: Shadi Falcon appears well and is in no acute distress. ENT: Oral pharynx clear. EYES: HOLLEY NECK: Supple without adenopathy. AXILLARY: no adenopathy OTHER LYMPH: no adenopathy CARDIAC: Regular rate and rhythm without S3,S4 or murmurs. LUNGS: Clear to auscultation./percussion ABDOMEN: Soft and non-tender without hepatosplenomegaly or masses. EXTREMITIES: No cyanosis, clubbing, edema or calf tenderness. SKIN: No bruises or petechiae. NEUROLOGICAL: Alert and oriented to person, place and time. MUSCULOSKELETAL: No spinal or chest wall tenderness. LINE: nontender, no erythema LABORATORY STUDIES No results found for this or any previous visit (from the past 72 hour(s)). RADIOLOGY STUDIES REVIEWED: none ASSESSMENT/PLAN: It was a pleasure to see Mr. Ribera back in clinic today. He has completed his radiation therapy which went very well. He has no issues or complaints. We discussed the natural history of MALT lymphomas. They are very unpredictable and often never recur or sometimes do recur years later. There is alsoa rare risk for tranformatino. We discussed the signs of symptoms of recurrent disease. 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 He prefers to have as little intervention and testing done as possible. I explained the rationale for repeat MRI. This is to establish a new baseline so that we have one for comparison in the future should the need arise. I would recommend the MRI of the orbits be done in the February/March time frame. After understanding the rationale he agreed to this. Normally I would follow patients with scans in the future as well prefers to forego this. I think this is reasonable. My normal followup would be every six-month visits for 2 or 3 years and then annual visits up to 5 years. Lymphomas can recur even after 5 years but I have found that they are usuallypicked up by the primary care physician or the patient at that point and referred back to me. I asked to have him come back in May with CBC, CMP, LDH. He prefers not to have the labs. I told him that it is his option to refuse the labs he so chooses. I would like to see him just to check in. He is agreeable to that. Plan; 1. return to clinic in 6 months with CBC, CMP, LDH 2. MRI of the orbits in at [facility]. We will call him with those results total time:25 time in counsellin Copy ELIZABETH SANDERS MD documented in this encounter Procedure Notes Provider, Scanning - 03/19/2014 12:02 PM EDTAssociated Order(s): SCAN DOC: MRI/MRA Provider, Scanning - 03/13/2014 10:14 AM EDTAssociated Order(s): SCAN DOC: MRI/MRA documented in this encounter Plan of Treatment Not on filedocumented as of this encounter Procedures Procedure Name Priority Date/Time Associated Diagnosis Comme nts MRI/MRA SCAN 03/19/2014 12:02 PM Results for this EDT procedure are i n the results section . MRI/MRA SCAN 03/13/2014 10:14 AM Results for this EDT procedure are i n the results section . documented in this encounter Results SCAN DOC: MRI/MRA (03/19/2014 12:02 PM EDT) Anatomical Region Laterality Modality Other Narrative 03/19/2014 1:33 PM EDT Procedure Note Provider, Scanning - 03/19/2014 12:02 PM EDT Scanning Provider MEDIA MGR SCAN EXT ORDR/RSLT SCAN DOC: MRI/MRA (03/13/2014 10:14 AM EDT) Anatomical Region Laterality Modality Other Narrative 03/13/2014 11:49 AM EDT Procedure Note Provider, Scanning - 03/13/2014 10:14 AM EDT Scanning Provider MEDIA MGR SCAN EXT ORDR/RSLT documented in this encounter Visit Diagnoses Diagnosis MALT lymphoma - Primary Marginal zone lymphoma, unspecified site , extranodal and solid organ sites documented in this encounter Care Teams Resident Assistant Cna Relationship Specialty Start Date End Date Elizabeth Sanders MD PCP - General 10/18/[address] [place] [address] documented as of this encounter
--- OUTSIDE RECORDS SUMMARY | 2022-06-17 00:50 | XMS_ITS | Clinical Summary ---
:1950 Author Organization [facility] [place] [address] Care Team Providers Name Role Phone Elizabeth Sanders MD Primary Care Provider Allergies No known active allergies Medications Medication Sig Dispensed Refills Start Date End Date Status Tadalafil (CIALIS) 20 20MG, PO, as 0 08/04/2005 Active mg Tab directed ATENOLOL-CHLORTHALIDON Take by mouth 0 Active E ORAL daily. 100-25 mg acetaminophen Take 650 mg by 0 A ctive (TYLENOL) 650 mg CR mouth every 8 tablet hours as needed. Do not exceed 6 tabs in 24 hours GLUCOSAM SUL NA/CHONDR Take by mouth 0 Active MENDOZA A NA (GLUCOSAMINE & daily. CHONDROIT SUL.NA ORAL) ibuprofen Take 200 mg by 0 Activ e (ADVIL;MOTRIN) 200 mg mouth every 6 tablet hours as needed. zolpidem (AMBIEN) 10 Take 10 mg by 0 Active mg tablet mouth nightly as needed. ascorbic acid (VITAMIN Take 500 mg by 0 Active C) 500 mg tablet mouth daily. He doesn't always take it daily [place]-3 Fatty Take by mouth 0 Ac tive Acids-Vitamin E 1,000 daily. He doesn't mg Cap always take it daily aspirin 81 mg EC Take 81 mg by 0 Active tablet mouth daily. multivitamin Take 1 tablet by 0 Active (THERAGRAN) tablet mouth daily. triamcinolone Apply topically as 0 Active (KENALOG) 0.1 % needed. For ointment itching under his moustache ZINC ACETATE, BULK, by Misc.(Non-Drug; 0 Active MISC Combo Route) route. SAW PALMETTO ORAL Take by mouth 0 Active daily. Zinc 50 mg Tab Take by mouth 0 A ctive daily. 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 Cancer Staging: Clinical: Stage I - Sign ed by Edis Gar MD on 11/27/2013 Overview: 3-4 years of increasing right upper eyel id edema, eyelid droop, diplopia, flashing lights and increasing retroorbital pressure 08/22/13 MRI (FA) revealed 4x1.8x1.8cm mass is superiomedial right orbit without definite invasive qualities 09/04/13 CT (FA) right proptosis with l arge irregularly shaped homogenous soft tissue mass within the right orbit with both extraconal and intraconal involvement with subtle associated bony remodeling and expansion of the bony right orbit 09/24/13 biopsy (FA) [place] lymphoma of smal l B lymphocytes, probably extranodal marginal zone (vs. Lymphoplasmacytic lymphoma), CD19+, CD20+, FMC7+, HLADR+, CD5-, CD10-, CD23-, CD38- Hep b/c neg. M spike 0.19 gm/dl. Normal SFLC XRT for orbital MALT completed 12/13/13. Daily Dose: 1.8 Gy Current Dose: 25.4 Gy in 14 fractions Planned Dose: 25.4 Gy in 14 fractions Immunizations Name Administration Dates Next Due Pneumococcal Polyvalent 23 02/17/2004 Td, adult 01/05/2006 Family History Medical History Relation Comments Cancer Father nonhodgkins lymphoma Leukemia Mother AML Lung Cancer Sister 2 nonsmoker Relation Status Comments Father Mother Sister 1 Sister 2 Social History Tobacco Use Types Packs/Day Years Used Date Smoking Tobacco: Former Cigarettes 1 30 Comments: quit 1996 Alcohol Use Standard Drinks/Week Comments No 0 (1 standard drink = 0.6 oz pure used to drink heavily, stopped alcohol) 1989 Sex Assigned at Date Recorded Not on file Last Filed Vital Signs Vital Sign Reading [...] Mass Index 25.09 01/01/2014 8:42 AM EDT Plan of Treatment Health Maintenance Due Date Last Done Comments Covid-19 Vaccine (#1) 1950 Lipid Screening 01/14/1968 Tdap adult 1969 Colonoscopy 1995 Zoster vaccine (1 of 2) 01/14/2000 Advance Directive 2005 Pneumoccocal Vaccine: 65+ (2 - PCV) 02/16/2005 02/17/2004 Tetanus vaccine 01/06/2016 01/05/2006 Influenza (Flu) vaccine (1 of 1 - Influenza standard 03/24/2022 series) Hepatitis C Screening Completed 10/18/2013 Advance Directives Documents on File Type Date Recorded Patient Conveyor Operator Explanati on Advance Directives and Living 11/12/2013 9:38 AM Will Care Teams Phlebotomy Program Coordinator Relationship Specialty Start Date End Date Elizabeth Sanders MD PCP - General 10/18/[address] [place] [address]
--- OUTSIDE RECORDS SUMMARY | 2022-06-17 00:50 | XMS_ITS | Encounter Summary ---
:1950 Author Organization [facility] [place] [address] Care Team Providers Name Role Phone Elizabeth Sanders MD Primary Care Provider Encounter Details Date Type Department Care Team Description 01/16/2014 Notes Only Radiation Oncology at CongEdis denson MD [address] [facility] RADIATION ONCOLOGY [place], [place] [phone] [place], [place] [id number] (Wo rk) Social History Tobacco Use Types Packs/Day Years Used Date Smoking Tobacco: Former Cigarettes 08 22 Comments: quit 1996 Alcohol Use Standard Drinks/Week Comments No 0 (1 standard drink = 0.6 oz pure used to drink heavily, stopped alcohol) 1989 Sex Assigned at Date Recorded Not on file documented as of this encounter Progress Notes Edis Gar MD - 01/16/2014 4:23 PM EDT RADIATION COMPLETION OF THERAPY NOTE PROVIDER: Edis Gar MD IDENTIFICATION: Shadi Sorenson is a 64 y.o. 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 Details of his radiation treatment course are as below. RT DOSE AND TARGETS: 25.2 Gy in 14 fractions to the right orbit RT Details (from [facility] electronic patient chart): SHADI SORENSON : 1950 Radiation Oncologist : Dr.Nirav Gar Course: C1 RT EYE Plan Start Tx Last Tx Elapsed Days Fractions Dose (cGy) RT_EYE_FiF 11/26/2013 12/13/2013 17 @ 180.0 cGy 2520 / 2520 Energy Mode: 10X/6X Reference Point: RT EYE RX Total Dose Correction: 0 Total Dose: 2520.0 cGy SPECIAL TECHNICAL CONSIDERATIONS: The patient was simulated on a CT simulator. Customized wilson were designed to encompass the targetvolume and identify organs at risk and with the intent of minimizing normal tissue toxicity. TREATMENT TOLERANCE and RESPONSE : The patient tolerated treatment with expected but insignificant side effects. Primarily, he noted erythema and edema which was managed with a short prednisone taper and topical ointment. The patient responded well to treatment, as his presenting symptoms included diplopia which had slightly improved upon completion. FOLLOWUP: Follow-up visit with Radiation Oncology will be arranged in 4-6 weeks. he knows to call this office or seek the help of the local emergency room if any further problems should arise prior to followup. documented in this encounter Plan of Treatment Not on filedocumented as of this encounter Visit Diagnoses Not on filedocumented in this encounter Care Teams Bottle Line Worker Relationship Specialty Start Date End Date Elizabeth Sanders MD PCP - General 10/18/[address] [place] [address] documented as of this encounter
--- OUTSIDE RECORDS SUMMARY | 2022-06-17 00:50 | XMS_ITS | Encounter Summary ---
:1950 Author Organization [facility] [place] [address] Care Team Providers Name Role Phone Elizabeth Sanders MD Primary Care Provider Reason for Visit Reason Comments On Treatment Visit Encounter Details Date Type Department Care Team Description 12/13/2013 Office Visit Radiation Oncology at Elijah Cline MD MALT lymphoma [address] RADIATION ONCOLOGY [place], [place] [phone] Social History Tobacco Use Types Packs/Day Years Used Date Smoking Tobacco: Former Cigarettes 30 Comments: quit 1996 Alcohol Use Standard Drinks/Week Comments No 0 (1 standard drink = 0.6 oz pure used to drink heavily, stopped alcohol) 1989 Sex Assigned at Date Recorded Not on file documented as of this encounter Last Filed Vital Signs Vital Sign Reading Time Taken Comments Blood Pressure 130/74 12/13/2013 2:00 PM EDT Pulse 50 12/13/2013 2:00 PM EDT Temperature - - Respiratory Rate 16 12/13/2013 2:00 PM EDT Oxygen Saturation 100% 12/13/2013 2:00 PM EDT Inhaled Oxygen Concentration - - Weight - - Height - - Body Mass Index - - documented in this encounter Progress Notes Elijah Cline MD - 12/13/2013 2:59 PM EDT [facility] On Treatment Visit Patient ID: Shadi Falcon is a 63 y.o. male currently undergoing definitive radiotherapy to the right orbit for stage IAE MALT of the retroorbital region. Plan Details: Daily Dose: 1.8 Gy Current Dose: 25.4 Gy in 14 fractions Planned Dose: 25.4 Gy in 14 fractions Subjective / Interval History:: No significant swelling, no pain. Diplopia remains slightly improved. No significant burning or tearing No complaints or concerns. Pain Assessment: Pain score today is 0/10. Objective: BP 130/74 Pulse 50 Resp 16 SpO2 100% General - appears well, no distress Skin - mild erythema supra/infra orbital HEENT - EOMI Portal Imaging Review: Imaging to confirm accurate positioning and alignment which matches the patient's original approved treatment planning images. Assessment: Completed treatment Plan: FU with Med Onc as scheduled. Jeans cream to periorbital region PRN documented in this encounter Plan of Treatment Not on filedocumented as of this encounter Visit Diagnoses Diagnosis MALT lymphoma Marginal zone lymphoma, unspecified site , extranodal and solid organ sites documented in this encounter Care Teams Biometrics Specialist Relationship Specialty Start Date End Date Elizabeth Sanders MD PCP - General 10/18/[address] [place] [address] documented as of this encounter
--- OUTSIDE RECORDS SUMMARY | 2022-06-17 00:50 | XMS_ITS | Encounter Summary ---
:1950 Author Organization [facility] [place] [address] Care Team Providers Name Role Phone Elizabeth Sanders MD Primary Care Provider Encounter Details Date Type Department Care Team Description 03/06/2014 Orders Only [facility] [place] [address] HEMATOLOGY/ONCOLOGY [phone] DEPT. [place], [place] [address] (Wo rk) Social History Tobacco [...] Name Priority Date/Time Associated Diagnosis Comme nts FILM LIBRARY Routine 03/06/2014 8:47 AM Results f or this STORAGE ONLY MR EDT procedure ar e in HEAD the results section. documented in this encounter Results Film Library- Storage only MR Head (03/06/2014 8:47 AM EDT) Anatomical Region Laterality Modality Other Specimen (Source) Anatomical Collection Method Collection Time Re ceived Time Location / / Volume Laterality 03/06/2014 8:47 AM EDT Narrative 03/07/2014 8:57 AM EDT This is a Non-reportable exam Procedure Note 03/07/2014 This is a Non-reportable exam Wilma Hernandez MD IMG FILM LIBRARY ORDERABLES documented in this encounter Visit Diagnoses Not on filedocumented in this encounter Care Teams Accounting Administrator Relationship Specialty Start Date End Date Elizabeth Sanders MD PCP - General 10/18/[address] [place] [address] documented as of this encounter
--- OUTSIDE RECORDS SUMMARY | 2022-06-17 00:50 | XMS_ITS | Encounter Summary ---
:1950 Author Organization [facility] [place] [address] Care Team Providers Name Role Phone Elizabeth Sanders MD Primary Care Provider Reason for Visit Reason Comments On Treatment Visit Encounter Details Date Type Department Care Team Description 12/06/2013 Office Visit Radiation Oncology at Dirk Wall, MALT lymphoma (Primary [facility] Dx) [address] [place] [address] RADIATION ONCOLOGY [phone] [place] [id number] Social History Tobacco Use Types Packs/Day Years Used Date Smoking Tobacco: Former Cigarettes 30 Comments: quit 1996 Alcohol Use Standard Drinks/Week Comments No 0 (1 standard drink = 0.6 oz pure used to drink heavily, stopped alcohol) 1989 Sex Assigned at Date Recorded Not on file documented as of this encounter Last Filed Vital Signs Vital Sign Reading Time Taken Comments Blood Pressure 126/75 12/06/2013 1:00 PM EDT Pulse 58 12/06/2013 1:00 PM EDT Temperature 36.7 ??C (98.1 ??F) 12/06/2013 1:00 PM EDT Respiratory Rate 18 12/06/2013 1:00 PM EDT Oxygen Saturation - - Inhaled Oxygen Concentration - - Weight - - Height - - Body Mass Index - - documented in this encounter Progress Notes Dirk Wall MD - 12/06/2013 1:35 PM EDT [facility] On Treatment Visit Patient ID: Shadi Falcon is a 63 y.o. male currently undergoing definitive radiotherapy to the right orbit for stage IAE MALT of the retroorbital region. Plan Details: Daily Dose: 1.8 Gy Current Dose: 14.4 Gy in 8 fractions Planned Dose: 25.4 Gy in 14 fractions Subjective / Interval History:: Swelling diminished significantly, now completed Medrol dosepak Diplopia slightly improved. No significant burning or tearing Pain Assessment: Pain score today is 0/10. Objective: BP 126/75 Pulse 58 Temp 36.7 ??C (98.1 ??F) Resp 18 General - appears well, no distress Skin - mild erythema supra/infra orbital HEENT - EOMI Portal Imaging Review: I have personally reviewed this patient's interval portal imaging to confirm accurate positioning and alignment which matches the patient's original approved treatment planning images. Assessment: Tolerating radiotherapy Plan: Continue radiotherapy as prescribed. Jeans cream to periorbital region documented in this encounter Plan of Treatment Not on filedocumented as of this encounter Visit Diagnoses Diagnosis MALT lymphoma - Primary Marginal zone lymphoma, unspecified site , extranodal and solid organ sites documented in this encounter Care Teams Microsoft Dynamics Ax Developer Relationship Specialty Start Date End Date Elizabeth Sanders MD PCP - General 10/18/[address] [place] [address] [address] [place] [address] documented as of this encounter
--- OUTSIDE RECORDS SUMMARY | 2022-06-17 00:50 | XMS_ITS | Encounter Summary ---
:1950 Author Organization [facility] [place] [address] Care Team Providers Name Role Phone Elizabeth Sanders MD Primary Care Provider Encounter Details Date Type Department Care Team Description 03/12/2014 Notes Only Radiation Oncology at Edis aGr MD [address] [facility] RADIATION ONCOLOGY [place], [place] [phone] [place], [place] [id number] (Wo rk) Social History Tobacco Use Types Packs/Day Years Used Date Smoking Tobacco: Former Cigarettes 08 22 Comments: quit 1996 Alcohol Use Standard Drinks/Week Comments No 0 (1 standard drink = 0.6 oz pure used to drink heavily, stopped alcohol) 1989 Sex Assigned at Date Recorded Not on file documented as of this encounter Progress Notes Edis Gar MD - 03/12/2014 9:51 AM EDT Mr. Falcon has cancelled multiple follow-up appointments with us. We informed him that typically wesee patients back in routine follow up as surveillance for disease recurrence or treatment toxicity.He indicated that he has multiple appointments with other providers and would like to follow primarily with Dr. Amos. We are amenable to this plan, but have confirmed that he has our contact information should there be any questions or concerns in the future. documented in this encounter Plan of Treatment Not on filedocumented as of this encounter Visit Diagnoses Not on filedocumented in this encounter Care Teams Sounding Device Operator Relationship Specialty Start Date End Date Elizabeth Sanders MD PCP - General 10/18/[address] [place] [address] documented as of this encounter
--- OUTSIDE RECORDS SUMMARY | 2022-06-17 00:51 | XMS_ITS | Encounter Summary ---
:1950 [place] [address] Care Team Providers Name Role Phone Unknown Primary Care Provider Unavailable Encounter Details Date Type Department Care Team Description 10/17/2013 Hospital Encounter Laboratory Wilma Heard [facility] MD Snehal [facility] [place] [address] HEMATOLOGY/ONCOLOGY [phone] DEPT. [place], [place] [address] (Wo rk) Social History Tobacco Use Types Packs/Day Years Used Date Smoking Tobacco: Never Assessed Sex Assigned at Date Recorded Not on file documented as of this encounter Medications at Time of Discharge Medication Sig Dispensed Refills Start Date End Date Tadalafil (CIALIS) 20 mg Tab 20MG, PO, as 0 08/04 directed cephALEXin (KEFLEX) 500 mg 500MG = 1 0 06/15/200 6 10/18/2013 capsule Capsule(s), PO, Four times daily hydrochlorothiazide 12.5mg, PO, Once 0 08/04/2005 11/13/2013 (HYDRODIURIL) 25 mg tablet daily atenolol (TENORMIN) 50 mg 50MG, PO, Once 0 200511/13/2013 tablet daily documented as of this encounter Plan of Treatment Not on filedocumented as of this encounter Procedures Procedure Name Priority Date/Time Associated Diagnosis Comme [facility] SURGICAL PATHOLOGY Routine 10/17/2013 12:14 PM Re sults for this REPORT EDT procedure are i n the results section. documented in this encounter Results Surgical Pathology Report (10/17/2013 12:14 PM EDT) Component Value Ref Test Analysis Performed At Patholo gist Range Method Time Signature Surgical CERNER Pathology ? [facility] Report ? Provider: ?? WILMA HEARD Pt. Name: ?? SHADI SORENSON I ?M ? Acc #: ?[id number] ?Pt. MRN: ?[id number] ? Col Date: ?? 4 ? /Sex: ?1950,(63 years),Male ? Rec Date: ?? 10/18/2013 ? LOC: ?OPW ? SURGICAL PATHOLOGY ? ---Pathologic Diagnosis--- ? Orbital mass, right, biopsies: ? - LOW GRADE B-CELL LY MPHOPROLIFERATIVE NEOPLASM, FAVOR EXTRANODAL MARGINAL ? ZONE LYMPHOMA ? (SEE COMMENT) ? 10/18/13 ? ANW ? 10/19/13 Verified by: ? Gopal ESCALANTE, Jazmin Bernabe ? (Electronic Si gnature) ? The attending pathologist whose signature appears o n this report has ? reviewed all diagnostic slides and has edited the allan ss and/or ? microscopic portion of the report in rendering the fi nal pathologic ? diagnosis. ? ---Comment--- ? Sections show a diffuse prolifera tion of small lymphocytes with mature, ? somewhat irregular nuclei, genera lly indistinct nucleoli and a moderate ? amount of pale cytopl asm. Numerous plasma cells are admixed, and there is ? no significant large cell component present. The ab normal lymphocyte ? population is seen in vading skeletal muscle in some locations within the ? biopsy specimen. The accompanying report from the referring institution ? indicates that flow c ytometry analysis identified a monoclonal, kappa light ? chain-restricted B-ce ll population with the immunophenotype, CD19+ CD20+ ? C5- CD10- CD23- FMC7+ . In summary, these morphologic and immunophenotypic ? findings are consiste nt with involvement of the orbit by a low grade B-cell ? lymphoproliferative neoplasm. The differe ntial diagnosis falls between ? lymphoplasmacytic lym phoma and extranodal marginal zone lymphoma. Given the ? 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 This diag nosis is in agreement with that of the ? referring institution. ? ---Frozen Section Diagnosis--- ? N/A ? ---Microscopic Description--- ? See below. ? [facility] ? Provider: ?? WILMA HEARD Pt. Name: ?? SHADI SORENSON I ?M ? Acc #: ?[id number] ?Pt. MRN: ?[id number] ? Col Date: ?? 4 ? /Sex: ?1950,(63 years),Male ? Rec Date: ?? 10/18/2013 ? LOC: ?OPW ? ---Gross Description--- ? [facility] ([facility]) pathology slide(s) are reviewed. ??Refer ? to Diagnosis and Specimen Submitted for specific case information. ? SURGICAL PATHOLOGY ? For the full text of the [facility] report(s) please refer to Non-DH ? Documentation Pathology in the electronic health renaldo rd (eDH). ? ---Clinical Information--- ? Specimen Submitted: ? CONSULTATION CASE ? A - 3 slides labeled [id number], collection date 09/24/13 . ? [id number] ? Report to: ? [facility] ? Surgical Pathology Department ? [facility], [place], [address]nd Floor ? [address] [place] [address] ? [place], [place] [address] ? Specimen (Source) Anatomical Collection Method Collection Time Re ceived Time Location / / Volume Laterality 10/17/2013 12:14 PM EDT Wilma Heard MD PATHOLOGY/CYTOLOGY ORDERABLE S Performing Organization Address City/State/[place] [address] [facility] documented in this encounter Visit Diagnoses Not on filedocumented in this encounter Care Teams Physical Medicine Physician Relationship Specialty Start Date End Date Unknown PCP - General 10/17/13 10/17/13 None documented as of this encounter
--- OUTSIDE RECORDS SUMMARY | 2022-06-17 00:51 | XMS_ITS | Encounter Summary ---
:1950 Author Organization [facility] [place] [address] Care Team Providers Name Role Phone Elizabeth Sanders MD Primary Care Provider Encounter Details Date Type Department Care Team Description 10/02/2013 External Results XRay at [facility] Provider, [address] [place] [phone] Social History Tobacco Use Types Packs/Day Years Used Date Smoking Tobacco: Never Assessed Sex Assigned at Date Recorded Not on file documented as of this encounter Plan of Treatment Not on filedocumented as of this encounter Procedures Procedure Name Priority Date/Time Associated Diagnosis Comme nts CT SCAN (SCAN) Routine 05/30/2013 ULTRASOUND SCAN (SCAN) Routine 04/30/2013 documented in this encounter Results Scan Doc: CT Scan (05/30/2013) Anatomical Region Laterality Modality Other Narrative This result has an attachment that is no t available. Scanning Provider MEDIA MGR SCAN EXT ORDR/RSLT Scan Doc: Ultrasound (04/30/2013) Anatomical Region Laterality Modality Other Narrative This result has an attachment that is no t available. Scanning Provider MEDIA MGR SCAN EXT ORDR/RSLT documented in this encounter Visit Diagnoses Not on filedocumented in this encounter Care Teams Health Information Internship Relationship Specialty Start Date End Date Elizabeth Sanders MD PCP - General 06/15/10 10/16/13 [address] [place] [address] documented as of this encounter
--- OUTSIDE RECORDS SUMMARY | 2022-06-17 00:51 | XMS_ITS | Encounter Summary ---
:1950 Author Organization [facility] Address [address] [place] [address] Care Team Providers Name Role Phone Elizabeth Sanders MD Primary Care Provider Encounter Details Date Type Department Care Team Description 11/12/2013 Surgery Outpatient Surgery Wilma Heard (O [place] MSURG) BONE MARROW Center Elyssa Brian MD ASP PERFORMED W/BX THRU [facility] DR CURTIS INCISION (WRVU 0.16) [facility] HEMATOLOGY/ONCOLOGY [place] [address] [place] [id number] [phone] (Wo rk) Social History Tobacco Use Types Packs/Day Years Used Date Smoking Tobacco: Never Sex Assigned at Date Recorded Not on file documented as of this encounter Last Filed Vital Signs Vital Sign Reading Time Taken Comments Blood Pressure 119/82 11/12/2013 9:12 AM EDT Pulse 54 11/12/2013 9:20 AM EDT Temperature 36.2 ??C (97.2 ??F) 11/12/2013 8:34 AM EDT Respiratory Rate 16 11/12/2013 9:20 AM EDT Oxygen Saturation 98% 11/12/2013 9:20 AM EDT Inhaled Oxygen Concentration - - Weight 68 kg (150 lb) 11/12/2013 8:34 AM EDT Height 168.9 cm (5' 6.5) 11/12/2013 8:34 AM EDT Body Mass Index 23.85 11/12/2013 8:34 AM EDT documented in this encounter Discharge Instructions Discharge InstructionsSharon Palomino, RN - 11/12/2013 9:11 AM EDT OUTPATIENT SURGERY POST-OPERATIVE INSTRUCTIONS BONE MARROW BIOPSY SITE 1. You have had a bone marrow aspiration and or/biopsy, which is like having an operation with a tiny, deep incision. 2. Do Not do any strenuous work today, like housework, yard work, lifting more than 5 pounds, jogging, tennis or golf as it may cause your bone marrow site to bleed. 3. To avoid infection, leave the clear plastic dressing on the site for three days. You may shower, bathe, or swim as you wish, provided the clear dressing remains intact, and all sides of the dressingare firmly adhered to the skin. In the unlikely event that a portion or the entire dressing should come off, you may replace it with a conventional cloth band aid. However, you will no longer be able to get the site wet until three days have passed, as a conventional band aid is not waterproof and thesite is no longer a sterile area. 4. It is not unusual for the site to leak a scant amount of blood, so do not be alarmed to see a small collection, or ???puddle?? of blood under the dressing. Wound healing will still occur. 5. If you are uncertain if there is an increase in any leaking from your bone marrow site, roll up atowel, lie down on a firm surface, place the towel directly under the puncture site to apply pressure, and rest there for one half hour. Direct, FIRM thumb pressure applied to the site for 10 minutes works well as an alternative method. Leave the dressing on. 6. Most people do not experience much discomfort after this procedure, but if you do, you should askyour physician what to take. AVOID ASPIRIN PRODUCTS as these interfere with clotting. 7. After three days, remove your dressing and leave it off, so the air can get to the site to finishthe healing process. 8. NOTIFY YOUR DOCTOR FOR: a. Redness b. Heat c. Fever d. Swelling e. Drainage f. Increased pain g. Foul odor (which may not be apparent through the dressing) If you are having problems or have any additional concerns or questions: Between 8am and 5pm - Call the Hematology Clinic at . After 5pm or on a weekend: Call the [facility] bottomer operator at and ask for the physician battery container inspector covering for your doctor. Instructions following sedation You may have received medication before and/or during your procedure, which affects judgement and reaction time. Use caution with stairs. Do not drive, operate machinery, drink alcoholic beverages, or make any legal decisions for 24 hours. You may eat a regular diet as tolerated. Do not smoke if you are alone. IV site -- slight redness, or tenderness is normal, you can use a warm compress. If tenderness and redness increases or foul drainage occurs, please contact your M. D. [facility] [address] [facility] [address] ??? [place] [address] ??? [phone] ??? [email or web address] ??? [facility] ??? [facility] ??? [facility] [place] in this encounter Medications at Time of Discharge Medication Sig Dispensed Refills Start Date End Date Tadalafil (CIALIS) 20 mg Tab 20MG, PO, as 0 08/04 directed hydrochlorothiazide 12.5mg, PO, Once 0 08/04/2005 11/13/2013 (HYDRODIURIL) 25 mg tablet daily atenolol (TENORMIN) 50 mg 50MG, PO, Once 0 200511/13/2013 tablet daily documented as of this encounter H&P Notes Niecy Chauhan APRN - 11/12/2013 8:55 AM EDT Evelyn Sorenson is here today for a bone marrow biopsy and aspirate. No changes in H & P sincelast exam dated 10/18/13 . We will proceed with planned procedure. documented in this encounter Procedure Notes Niecy Chauhan APRN - 11/12/2013 9:15 AM EDT BONE MARROW BIOPSY AND ASPIRATION PROCEDURE NOTE Bone Marrow Biopsy & Aspiration with Conscious Sedation - Unilateral Date/Time of Procedure:11/12/13 Proceduralist: Niecy Chauhan, RN, MS, PHYSIOTHERAPY AIDE DIAGNOSIS: NHL Pre-Procedure: (x) Consent signed and on chart. (x) CBC drawn within 3 days. (x) Medications/Allergies/Problem List reviewed. (x) H & P complete Prior to start of procedure the following is verified in a TIME OUT: (x) Patient identity (x) Planned procedure (x) Safety concerns IV ACCESS: Per sedation RN PAIN INTERVENTION: Per sedation RN Sterile Condition: Chlorohexidine/betadine was used to sterilize the area. Sterile drapes were used to create a sterile field. Local Anesthesia: 1% 16cc Lidocaine PROCEDURE: A bone marrow biopsy and aspiration was performed on the right posterior iliac crest. Pressure applied to site(s) for at least 20 minutes following the procedure and Tegaderm placed. Estimated Blood Loss: minimal Complications: none POST INTERVENTION CARE & PAIN ASSESSMENT: Per [facility] nurses. Follow-up: Written/Verbal instructions for site care given to patient per [facility] nurses. Follow-up with Physician as instructed. documented in this encounter Miscellaneous Notes Miscellaneous - Provider, Scanning - 11/14/2013 8:33 AM EDT Miscellaneous - Provider, Scanning - 11/12/2013 9:35 PM EDT Miscellaneous - Provider, Scanning - 11/12/2013 9:58 AM EDT documented in this encounter Plan of Treatment Not on filedocumented as of this encounter Procedures Procedure Name Priority Date/Time Associated Comments Diagnosis CT CHEST ABDOMEN PELVIS W Routine 11/12/2013 12:52 MALT lympho ma Results for this CONTRAST (GENERIC) PM EDT procedure are in the results section. CT NECK SOFT TISSUE W Routine 11/12/2013 12:52 MALT lymphoma R esults for this CONTRAST PM EDT procedure are i n the results section. CHROMO REPORT ACQUIRED Routine 11/12/2013 11:22 R esults for this AM EDT procedure are i n the results section. IMMUNOPHENOTYPING FLOW Routine 11/12/2013 9:10 Re sults for this CYTOMETRY AM EDT procedure are i n the results section. BONE MARROW FLOW Routine 11/12/2013 9:10 Results for this CYTOMETRY REPORT AM EDT procedure a re in the results section. BONE MARROW FINAL REPORT Routine 11/12/2013 9:10 Results for this AM EDT procedure are i n the results section. IRON STAIN, BONE MARROW Routine 11/12/2013 9:10 R esults for this AM EDT procedure are i n the results section. BONE MARROW PANEL Routine 11/12/2013 9:10 ([facility] [place] AM EDT ([facility] MS[facility]G) BONE MARROW 11/12/2013 8:50 marginal zone BIOPSY; DIAGNOSTIC (WRVU AM EDT lymphoma 1.37) ([facility] MSURG) BONE MARROW 11/12/2013 8:50 marginal zone ASP PERFORMED W/BX THRU AM EDT lymphoma BX INCISION (WRVU 0.16) DIFFERENTIAL, AUTOMATED Routine 11/12/2013 8:45 R esults for this AM EDT procedure are i n the results section. CBC (WITH DIFF) Routine 11/12/2013 8:45 Results f or this AM EDT procedure are i n the results section. documented in this encounter Results CT chest, abdomen, & pelvis with contrast (11/12/2013 12:52 PM EDT) Anatomical Region Laterality Modality Computed Tomography Specimen (Source) Anatomical Collection Method Collection Time Re ceived Time Location / / Volume Laterality 11/12/2013 12:52 PM EDT Narrative 11/12/2013 2:[address] Chest / Abdomen / Pelvis With Contras t Clinical History MALT LYMPHOMA stage lymphoma Comparison None Technique Helical acquired images through the ches t, abdomen, and pelvis were obtained with the use of oral and intravenous con trast. ??The patient received Omnipaque 350 110 mL. Findings Chest: Chest: ??No pulmonary nodules are seen. ??A small amount of patchy airspace opacities seen at the medial right lung base. No mediastinal, hilar, or axillary adenopathy. No pleural or peric ardial effusion. ??Incidentally noted is a 2.6 cm left 3 views interior intramusc ular lipoma. ?? Abdomen/pelvis: ??The liver, gallbladder , adrenals, spleen, and pancreas are unremarkable. ??Indeterminate subcentime ter hypodense lesions are seen within both kidneys. There are 2 right posterio r para renal soft tissue nodules are seen delete the inferior pole of the rig ht kidney, series 2, image 78 and series 2, image 79. ??The largest measur es 1.2 cm in maximum length. ??No mesenteric adenopathy is seen. ??The sma ll bowel and colon are normal in size and contour. ??Scattered colonic diverti cula are seen. ??No suspicious osseous lesions. Impression ? 1. Nonspecific patchy airspace op acity at the right lung base which could be due to chronic lung changes /scarring , atelectasis, or inflammatory changes. . ? 2. Indeterminate sub cm bilateral renal hypodense lesions, these are too small to further characterize and would recommend ultrasound for further characterization. ? 3. Indeterminate soft tissue nodu les in the posterior pararenal space, they could represent small lymph nodes a nd cannot exclude metastatic disease. If clinically indicated, would correlate with PET-CT. Film and interpretation reviewed by the attending Procedure Note Esteban Welsh MD - 11/12/2013Form atting of this note might be different from the original. Examination CT Chest / Abdomen / Pelvis With Contras t Clinical History MALT LYMPHOMA stage lymphoma Comparison None Technique Helical acquired images through the ches t, abdomen, and pelvis were obtained with the use of oral and intravenous con trast. The patient received Omnipaque 350 110 mL. Findings Chest: Chest: No pulmonary nodules are seen. A small amount of patchy airspace opacities seen at the medial right lung base. No mediastinal, hilar, or axillary adenopathy. No pleural or peric ardial effusion. Incidentally noted is a 2.6 cm left 3 views interior intramusc ular lipoma. Abdomen/pelvis: The liver, gallbladder, adrenals, spleen, and pancreas are unremarkable. Indeterminate subcentimete r hypodense lesions are seen within both kidneys. There are 2 right posterio r para renal soft tissue nodules are seen delete the inferior pole of the rig ht kidney, series 2, image 78 and series 2, image 79. The largest measures 1.2 cm in maximum length. No mesenteric adenopathy is seen. The small bowel and colon are normal in size and contour. Scattered colonic diverticu la are seen. No suspicious osseous lesions. Impression 1. Nonspecific patchy airspace opacity at the right lung base which could be due to chronic lung changes /scarring , atelectasis, or inflammatory changes. . 2. Indeterminate sub cm bilateral renal hypodense lesions, these are too small to further characterize and would recommend ultrasound for further characterization. 3. Indeterminate soft tissue nodules in the posterior pararenal space, they could represent small lymph nodes a nd cannot exclude metastatic disease. If clinically indicated, would correlate with PET-CT. Film and interpretation reviewed by the attending Wilma Heard MD IMG CT ORDERABLES CT neck soft tissue with contrast (11/12/2013 12:52 PM EDT) Anatomical Region Laterality Modality Neck, Head Computed Tomography Specimen (Source) Anatomical Collection Method Collection Time Re ceived Time Location / / Volume Laterality 11/12/2013 12:52 PM EDT Narrative 11/12/2013 2:[address] Neck With Contrast Clinical History MALT LYMPHOMA stage lymphoma Comparison CT performed 09/04/2013 at [facility]. Technique Examination was done following intraveno us administration of 110 mL of Omnipaque 350. Findings The examination encompassed the mid orbi ismael regions and through the sternal notch. ??We became aware only after the study was completed that the patient suffered from orbital mass on the right. ??This mass, seen only partially in the right medial orbit is still present, but comparison is not possible because of the limits of the limits of the study sc ope. Mass may be small The remainder of the neck shows no sign of an additional mass or adenopathy. To more thoroughly assess the treatment response of the orb ital mass, additional scanning would be needed. Impression The study is incomplete with regard to t he orbits but shows no new or pathologic neck masses. ??There is resid ual orbital mass medial posteriorly on the right appearing to involve both the extraocular muscles and intra Conal fat. ??Further imaging will probably be necessary. ??Results communicated by email to the referring physician at the time of interpretation. Procedure Note Rafal Doan MD - 11/12/2013Format ting of this note might be different from the original. Examination CT Neck With Contrast Clinical History MALT LYMPHOMA stage lymphoma Comparison CT performed 09/04/2013 at [facility]. Technique Examination was done following intraveno us administration of 110 mL of Omnipaque 350. Findings The examination encompassed the mid orbi ismael regions and through the sternal notch. We became aware only after the st udy was completed that the patient suffered from orbital mass on the right. This mass, seen only partially in the right medial orbit is still present, but comparison is not possible because of the limits of the limits of the study sc ope. Mass may be small The remainder of the neck shows no sign of an additional mass or adenopathy. To more thoroughly assess the treatment response of the orb ital mass, additional scanning would be needed. Impression The study is incomplete with regard to t he orbits but shows no new or pathologic neck masses. There is residua l orbital mass medial posteriorly on the right appearing to involve both the extraocular muscles and intra Conal fat. Further imaging will probably be ne cessary. Results communicated by email to the referring physician at the time of interpretation. Wilma Heard MD IMG CT ORDERABLES chromo report acquired (11/12/2013 11:22 AM EDT) Component Value Ref Test Analysis Performed At [facility] Method Time Signature Cytogenetics Final Report CERNER Acquired Report [facility] Department of Pathology - Cytogenetics Laboratory [address] [place], [place] [id number] ---Clinical Information--- Indication for Study: Marginal Cell Lymphoma Specimen: ? Bone Marrow Accession: ?[id number] Collection Date/Time: 11/12/2013 09:10 Received Date/Time: ?? 11/12/2013 14:23 ---Preparation--- 24 and 48 hour short term cultures Banding Method: ??G-banding Banding Level: 400-450 bands ---Analysis--- Total Cultures Analyzed: ??2 Total Metaphase Cells Counted: ??20 Total Metaphase Cells Analyzed: ??20 Total Metaphase Cells Karyotyped: ??3 ---Karyotype--- 46,XY[20] ---Interpretation--- Cytogenetic analysis revealed a normal male karyotype of 46, XY. No clonal abnormalities were observed. 14 (Electronic Signature) Verified By: Nicolas ESCALANTE, Ph.D., [facility] Director, Cytogenetics Specimen (Source) Anatomical Collection Method Collection Time Re ceived Time Location / / Volume Laterality 11/12/2013 11:22 AM EDT Wilma Heard MD HEMATOLOGY ORDERABLES Performing Organization Address City/State/[place] [address] CERNER [facility]ENNI[facility] Bone Marrow Flow Cytometry Report (11/12/2013 9:10 AM EDT) Component Value Ref Test Analysis Performed At [facility] Range Method Time Signature Bone Marrow CERNER Flow ? [facility] MILLENNIUM Cytometry Report ? Provider: ?? WILMA HEARD Pt. Name : ?? EVELYN SORENSON I ?M ? Acc #: ?[id number] ? Pt. ? Col Date: ?? 4 ? /Sex: ?1950,(63 years),Male ? Rec Date: ?? 11/12/2013 ? LOC: ?[facility] ? ANALYTICAL CELL PATHOLOGY ? ---Clinical Information--- ? 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 Staging marrow. ? ---Preparation--- ? FCM: [id number] ? [id number] ? ---Markers--- ? Cells for immunopheno typic analysis were derived from Bone Marrow. ??CD45 vs ? side scatter gating was utilized to identify a lymphoid analysis region ? that comprises approximately 11-12% of all cells. ? The following markers were assese d: CD2, CD3, CD4, CD5, CD7, CD8, CD10, ? CD19, CD20, CD23, CD38, CD45, CD56, CD79b , FMC7, kappa light chain and ? lambda light chain. ? ---Interpretation--- ? DIAGNOSIS: MINOR POPU LATION OF MONOCLONAL, LAMBDA-RESTRICTED CD5+ B-CELLS ? PRESENT (SEE COMMENT) ? 11/12/13 ? STEVEN ? 11/15/13 Verified by: ? Gopal ESCALANTE, Jazmin Bernabe ? (Electronic Si gnature) ? ---Comment--- ? CD19+ B-cells within this bone marrow aspirate specimen account for 13% of ? lymphocytes (1% of total cells). Within the population of polyclonal B- ? cells is a minor popu lation of monoclonal, lambda light chain-restricted B- ? cells with the immuno phenotype, CD19+ CD20+ CD5+ CD10- CD23-, FMC7+ that ? likely correspond to the cells within the lymphoid aggregate seen on ? morphologic review of the bone marrow biopsy (see separate report). These ? cells are negative for cyclin D1 by immun ohistochemical staining. Flow ? cytometry analysis performed at [facility] on the ? previously diagnosed orbital lesi on identified a CD5-, kappa-restricted ? immunophenotype (see [id number]), making it unlikely that the marrow and ? orbital processes are clonally re lated. The significance of this marrow ? finding is not known. It may represent the ??marrow manifestation of a non- ? CLL-like monoclonal B -cell lymphocytosis, and correlation with clinical and ? radiographic staging studies may provide additional diagnostic clarity on ? that point. CD3+ T-ce lls account for 79% of lymphocytes (9% of total cells) ? in this marrow aspirate and consist of an appropriate mixture of ? [facility] ? Provider: ?? WILMA HEARD Pt. Name: ?? EVELYN SORENSON I ?M ? Acc #: ?[id number] ? Pt. ? Col Date: ?? 4 ? /Sex: ?1950,(63 years),Male ? Rec Date: ?? 11/12/2013 ? LOC: ?[facility] ? ANALYTICAL CELL PATHOLOGY ? mature CD4+ and CD8+ forms (CD4:C D8 approximately 1.4) without aberrant ? antigen expression or loss. CD3-C D56+ NK cells are not increased (8% of ? lymphocytes, 1% of total cells). ? Flow analysis is an ancillary study. A definite diagn osis requires ? correlation with the morphologic features of this process and if necessary, ? correlation with othe r ancillary studies like immunohistochemistry, enzyme ? cytochemistry and/or cyto/molecular genetics. ? This test was develop ed and its performance characteristics determined by ? the Clinical Flow Cytometry Laboratory at [facility] ? Center. It has not been cleared or approved by the U.S. Food and Drug ? Administration. The F has determined that such clearance or approval is ? not necessary. ??This test is used for clinical purposes. ??It should not be ? regarded as investiga tional or for research. ??This laboratory is certified ? under the Clinical La boratory Improvement Act of 1988 (CLIA) as qualified ? to perform high complexity clinical laboratory testin g. Specimen (Source) Anatomical Collection Method Collection Time Re ceived Time Location / / Volume Laterality 11/12/2013 9:10 AM EDT Wilma Heard MD PATHOLOGY/CYTOLOGY ORDERABLE S Performing Organization Address City/State/ZIP Code Phon e Number [place] [id number] [facility] Bone Marrow Final Report (11/12/2013 9:10 AM EDT) Component Value Ref Test Analysis Performed At [facility] gist Range Method Time Signature Bone Marrow [facility] Final Report ? [facility] ? Provider: ?? WILMA HEARD Pt. Name: ?? CORNELIOJUAN EVELYN I ?M ? Acc #: ?[id number] ? Pt. ? Col Date: ?? 4 ? /Sex: ?1950,(63 years),Male ? Rec Date: ?? 11/12/2013 ? LOC: ?[facility] ? HEMATOPATHOLOGY ? ---Clinical Information--- ? Specimen: ? Bone marrow aspi rate and biopsy, right ? 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 Indication for Study: ?? Staging marrow ? ---Peripheral Blood Findings--- ? The white blood cell count is 6.03K/uL. ??The p redominating cells are ? neutrophils with norm al morphology. ??No anemia is evident (Hgb 15.3 g/dL; ? MCV 90.6 fL), and RBC morphology is unremarkable. Lym phocytes show ? generally normal morp hology with occasional activated forms seen. Platelets ? are normal in number (257K/uL) and exhibit normal morphologic features. No ? blasts or abnormal circulating cell populations are a ppreciated. ? ---Aspirate--- ? The bone marrow aspirate is cellular and particulate with an estimated ? myeloid:erythroid (M: E) ratio of approximately 2:1. A neoplastic infiltrate ? is not identified. Myeloid maturation is sequen tial to the neutrophil ? without dysplastic features or an increase in blasts, and erythroid ? precursors show normoblastic maturation. Megaka ryocytes are normal in ? number and morphology . Plasma cells and lymphocytes have normal morphology ? and are not increased in number. An iron stain is per formed and ? demonstrates that iro n stores are present and distributed appropriately in ? macrophages. No increase in ringed sideroblasts is ap preciated. ? ---Differential--- ? Not performed. ? ---Enzyme Cytochemistry--- ? Not performed. ? ---Biopsy and/or Clot Section--- ? The decalcified bone marrow biopsy specimen consist s of cortical and ? trabecular bone and h ematopoietic tissue in marklogic developer arrangement. The bone ? marrow is roughly normocellular for age with an overa ll cellularity ? estimated at approxim ately 40%. Myeloid maturation is once again seen as ? sequential to the neutrophil without an i ncrease in blasts, and active ? islands of maturing erythroid precursors are present throughout. ? Megakaryocytes are present in normal number, have a generally normal ? morphology and are distributed in a jennifer l pattern throughout the bone ? marrow space without significant cluster formation or abnormal ? localization. There i s a single interstitial lymphoid aggregate located at ? the very distal end of the biopsy specime n, and lymphocytes within the ? [facility] ? Provider: ?? WILMA HEARD Pt. Name: ?? EVELYN SORENSON I ?M ? Acc #: ?[id number] ? Pt. ? Col Date: ?? 4/22/[birth year] 4 ? /Sex: ?1950,(63 years),Male ? Rec Date: ?? 11/12/2013 ? LOC: ?[facility] ? aggregate consist of small, mature cells. Flow cytometry immunophenotype ? analysis identifies a small CD5+ lambda light chain- ? HEMATOPATHOLOGY ? restricted B-cell pop ulation (see below), but the immunostain for cyclin D1 ? is negative in these cells. There are no granulomata or abnormal ? infiltrating nonhemat opoietic cell populations. The bony trabeculae appear ? normal for age. ? Immunohistochemistry Studies: ? Formalin-fixed, paraf fin-embedded tissue sections are studied using the B- ? SA system technique w ith appropriate positive and negative controls. These ? IHC studies provide t pathologist with adjunctive diagnostic information. ? Antibody specificity has been verified by testing antibodies on a series of ? in-house tissues with known immunohistochemical perfo rmance ? characteristics. The clinical interpretation of any antibody positive ? staining or its absence is evaluated within the ramona xt of clinical ? presentation, morphol ogy, histopathological criteria and other diagnostic ? tests. ? Block ?Antibody ? Result (Posi tive/Negative) ? A1 ? Cyclin D1 ? Negative i n lymphocytes ? ---Diagnosis--- ? 1. ?? NORMAL CBC AND PERIPHERAL BLOOD MORPHOLOGY ? 2. ?? NORMOCELLULAR MARROW WITH MATURING TRILINEAGE H EMATOPOIESIS ? 3. ?? MINOR POPULATIO N OF LAMBDA-RESTRICTED, CD5+ B CELLS WITHOUT EVIDENCE ? FOR MARROW ? INVOLVEMENT BY KAPPA-RESTRICTED MARGINAL ZONE LYMPH ZEENAT (SEE COMMENT) ? 11/13/13 ? OVD ? 11/15/13 Verified by: ? Gopal ESCALANTE, Jazmin Bernabe ? (Electronic Si gnature) ? The attending pathologist whose signature appears o n this report has ? reviewed all diagnostic slides and has edited the allan ss and/or ? microscopic portion of the report in rendering the fi nal pathologic ? diagnosis. ? ---Comment--- ? Flow cytometry analys is performed concurrently on the bone marrow aspirate ? specimen (see separate report) demonstrat es a minor population of CD5+ ? CD23-, lambda light c francisco-restricted B cells that likely correspond to the ? [facility] ? Provider: ?? WILMA HEARD Pt. Name: ?? EVELYN SORENSON I ?M ? Acc #: ?[id number] ? Pt. ? Col Date: ?? 4 ? /Sex: ?1950,(63 years),Male ? Rec Date: ?? 11/12/2013 ? LOC: ?[facility] ? cells within the lymp hoid aggregate. These cells are negative for cyclin D1 ? by immunohistochemical staining. Flow cytometry analysis performed at ? [facility] ? HEMATOPATHOLOGY ? Care on the previousl y diagnosed orbital lesion identified a CD5-, kappa- ? restricted immunophen otype (see [id number]), making it unlikely that the ? marrow and orbital pr ocesses are clonally related. The significance of this ? marrow finding is not known. It may represent the ??marrow manifestation of ? a dzi-ITW-ydwe monoclonal B-cell lymphocytosis, and correlation with ? clinical and radiogra phic staging studies may provide additional diagnostic ? clarity on that point . There is no evidence for involvement of the marrow ? by a kappa-restricted , CD5- marginal zone lymphoma in this specimen. The ? specimen has been sub mitted for cytogenetic analysis, and the results will ? be reported separately when available. ? Dictated by: ??Myriam Whitlock MD ? Hematopathology Fellow ? As the attending phys ician, I attest that I examined the histologic slides, ? and confirm Dr. Myriam Whitlock's diagnosis. Specimen (Source) Anatomical Collection Method Collection Time Re ceived Time Location / / Volume Laterality 11/12/2013 9:10 AM EDT Wilma Heard MD PATHOLOGY/CYTOLOGY ORDERABLE S Performing Organization Address City/[facility] Code Phon e Number [address] CERNER MILLENNIUM Immunophenotyping Flow Cytometry (11/12/2013 9:10 AM EDT) Component Value Ref Test Analysis [facility] Method Time Signature Type of Specimen Bone Marrow CERNER MILLENNIUM Panel Requested Lymphoma CERNER Panel MILLENNIUM Immunophenotyping See Comment CERNER Flow MILLENNIUM Comment: When completed by the Pathologist, the F low Cytometry Report ([id number]) will display under the Hematopathology Repor ts result section in eDH. Specimen Anatomical Collection Method Collection Time Receive d Time (Source) Location / / Volume Laterality Body fluid 11/12/2013 9:10 AM 4 3:20 specimen EDT PM EDT (specimen) Resulting Agency Comment Spec In Lab Wilma Heard MD HEMATOLOGY ORDERABLES Performing Organization Address City/[facility] Phon e Number [address] CERNER MILLENNIUM Iron Stain, Bone Marrow (11/12/2013 9:10 AM EDT) Stumpwise Method Time Signature Iron Stain BM See Comment CERNER MILLENNIUM Comment: See Bone Marrow Report [id number] under Hematopathology Reports. Specimen Anatomical Collection Method Collection Time Receive d Time (Source) Location / / Volume Laterality Bone marrow 11/12/2013 9:10 AM 4 9:58 specimen EDT AM EDT (specimen) Resulting Agency Comment Spec In Lab Wilma Heard MD HEMATOLOGY ORDERABLES Performing Organization Address City/State/ZIP Code Phon e Number [place] [phone] CERNER MILLENNIUM Differential, Automated (11/12/2013 8:45 AM EDT) P athologist Signature Neutrophils % 51.2 34.0 - CERNER 71.0 % MILLENNIUM Neutr Abs (ANC) 3.09 1.50 - CERNER 6.30 MILLENNIUM x10(3)/mcL Lymphocytes % 35.0 19.0 - CERNER 53.0 % MILLENNIUM Lymphocytes Abs 2.1 1.0 - 3.6 CERNER x10(3)/mcL MILLENNIUM Monocytes % 9.8 4.0 - 13.0 CERNER % MILLENNIUM Monocyte Abs 0.6 0.2 - 1.0 CERNER x10(3)/mcL MILLENNIUM Eosinophils % 3.6 0.0 - 7.0 CERNER % MILLENNIUM Eosinophils Abs 0.2 0.0 - 0.5 CERNER x10(3)/mcL MILLENNIUM Basophils % 0.2 0.0 - 2.0 CERNER % MILLENNIUM Basophils Abs 0.0 0.0 - 0.2 CERNER x10(3)/mcL MILLENNIUM Immature Gran % 0.20 0.00 - CERNER 0.66 % MILLENNIUM Comment: Immature granulocytes(IG's)percentage an d absolute count will include metamyelocytes, myelocytes, and promyelo cytes. Blood smears from CBCs yielding IG's will be scanned manually for concor dance. If this scan disagrees with the automated IG or if promyelocytes are not ed, a manual differential will be performed. Brittanie Gran Abs 0.01 0.00 - 0.05 x10(3)/mcL CER NER MILLENNIUM Specimen Anatomical Collection Method Collection Time Receive d Time (Source) Location / / Volume Laterality Blood specimen 11/12/2013 8:45 AM 014 9:59 (specimen) EDT AM EDT Wilma Heard MD HEMATOLOGY ORDERABLES Performing Organization Address City/[facility]/[place] [address] CERNER MILLENNIUM CBC (with Diff) (11/12/2013 8:45 AM EDT) P athologist Signature WBC 6.0 4.0 - 10.0 CERNER x10(3)/mcL MILLENNIUM RBC 4.78 4.63 - 6.08 CERNER x10(6)/mcL MILLENNIUM Hemoglobin 15.3 13.7 - 17.5 CERNER gm/dL MILLENNIUM Hematocrit 43.3 40.0 - 51.0 CERNER % MILLENNIUM MCV 90.6 79.0 - 92.0 CERNER fL MILLENNIUM MCH 32.0 25.6 - 32.2 CERNER pg MILLENNIUM MCHC 35.3 32.0 - 36.5 CERNER gm/dL MILLENNIUM Platelets 257 145 - 370 CERNER x10(3)/mcL MILLENNIUM RDWSD 39.6 35.0 - 46.0 CERNER fL MILLENNIUM RDWCV 12.0 10.9 - 14.4 CERNER % MILLENNIUM MPV 9.8 9.0 - 12.0 CERNER fL MILLENNIUM Specimen Anatomical Collection Method Collection Time Receive d Time (Source) Location / / Volume Laterality Blood specimen 11/12/2013 8:45 AM 014 9:59 (specimen) EDT AM EDT Resulting Agency Comment Spec In Lab Wilma Heard MD HEMATOLOGY ORDERABLES Performing Organization Address City/[facility]/ZIP Code Phon e Number [address] [facility] documented in this encounter Visit Diagnoses Not on filedocumented in this encounter Administered Medications Inactive Administered Medications - up to 3 most recent administrations Medication Order MAR Action Action Date Dose Rate Site fentaNYL 50mcg/mL injection Given 11/12/2013 9:03 AM EDT 50 mcg 25-100 mcg, Intravenous, EVERY 5 MIN PRN, Starting on Mon11/12/13 at 0827, Until Mon11/12/13 at 1321, Pain, Hold for respiratory rate less than 8 breaths per minute. (maximum dose 200 mcg) , Intra-Operative (Intra-Procedure), Routine iohexol (OMNIPAQUE) 350 mg iodine/mL Given 11/12/2013 12:46 PM E DT 17,500 mg injection 17,500 mg 17,500 mg (50 mL), Oral, ONCE PRN, 1 dose, Starting on Mon11/12/13 at 1246, Until Mon11/12/13 at 1246, Per Protocol, Routine iohexol (OMNIPAQUE) 350 mg iodine/mL Given 11/12/2013 12:46 PM E DT 38,500 mg injection 38,500 mg 38,500 mg (110 mL), Intravenous, ONCE PRN, 1 dose, Starting on Mon11/12/13 at 1246, Until Mon11/12/13 at 1246, Per Protocol, Routine midazolam (PF) (VERSED) 1 mg/mL injection 0.5-2 Given 11/12/2013 9:06 AM EDT 1 mg mg 0.5-2 mg, Intravenous, EVERY 5 MIN PRN, Starting on Mon11/12/13 at 0827, Until Mon11/12/13 at 1321, Sleep, Anxiety, Hold for delirium/agitation. (Maximum dose 5 mg)., Intra-Operative (Intra-Procedure), Routine Given 11/12/2013 9:03 AM EDT 1 mg documented in this encounter Active and Recently Administered Medications Times are shown in EDT. PRN Medication Order 11/10/2013 11/11/2013 11/12/2013 fentaNYL 50mcg/mL injection (CANCELED) 0903 (Given - Provider: Sharon Palomino RN) 25-100 mcg, Intravenous, EVERY 5 MIN PRN , Starting Mon11/12/13 at 0827, Until Mon11/12/13 at 1321, Pain, Hold for respiratory rate less than 8 breaths per minute. (maximum dose 200 mcg) , Intra-Operative (Intra-Procedure), Routine iohexol (OMNIPAQUE) 350 mg iodine/mL injection 17,500 mg (COM[place]) 1246 (Given - Provider: Jordi W Brianna) 50 mL = 17,500 mg, Oral, ONCE PRN, 1 dos e, Starting 11/12/13 at 1246, Until 11/12/13 at 1246, Per Protocol, Routine iohexol (OMNIPAQUE) 350 mg iodine/mL injection 38,500 mg (COMPLE [place]) 1246 (Given - Provider: Jordi [place]) 110 mL = 38,500 mg, Intravenous, ONCE NV N, 1 dose, Starting 11/12/13 at 1246, Until 11/12/13 at 1246, Per Protocol, Routine midazolam (PF) (VERSED) 1 mg/mL injection 0.5-2 mg (CANCELED) 0903 (Given - Provider: Sharon Palomino, HERO)0906 (Given - Provider: Sharon Palomino, HERO) 0.5-2 mg, Intravenous, EVERY 5 MIN PRN, Starting 11/12/13 at 0827, Until 11/12/13 at 1321, Sleep, Anxiety, Hold for delirium/agitation. (Maximum dose 5 mg)., Intra-Operative (Intra-Procedure), Routine documented in this encounter Care Teams Supervisor Cigar Processing Relationship Specialty Start Date End Date Elizabeth Sanders MD PCP - General 10/18/13 [address] [place] [address] documented as of this encounter
--- OUTSIDE RECORDS SUMMARY | 2022-06-17 00:51 | XMS_ITS | Encounter Summary ---
:1950 Author Organization [facility] [place] [address] Care Team Providers Name Role Phone Elizabeth Sanders MD Primary Care Provider Encounter Details Date Type Department Care Team Description 10/18/2013 External Results Medical Records Provider, [place] [address] Social History Tobacco Use Types Packs/Day Years Used Date Smoking Tobacco: Never Sex Assigned at Date Recorded Not on file documented as of this encounter Plan of Treatment Not on filedocumented as of this encounter Procedures Procedure Name Priority Date/Time Associated Diagnosis Comme nts SURGICAL PATHOLOGY SCAN Routine 10/18/2013 documented in this encounter Results Scan Doc: Surgical Pathology (10/18/2013) Narrative This result has an attachment that is no t available. Wilma Hernandez MD MEDIA MGR SCAN EXT ORDR/RSLT documented in this encounter Visit Diagnoses Not on filedocumented in this encounter Care Teams Willower Relationship Specialty Start Date End Date Elizabeth Sanders MD PCP - General 10/18/[address] [place] [address] documented as of this encounter
--- OUTSIDE RECORDS SUMMARY | 2022-06-17 00:51 | XMS_ITS | Clinical Summary ---
:1950 Author Organization [facility] Address [address] [place] [address] Care Team Providers Name Role Phone Elizabeth Sanders MD Primary Care Provider Allergies No known active allergies Medications Medication Sig Dispensed Refills Start Date End Date Status UNABLE TO FIND Atenolol combine 0 Active with HCTZ 100-25 mg, daily in AM . vit Take by mouth. 0 Activ e [id number] 196 (BIOFLEX) 791-56-47-40 mg tablet Docosahexanoic Take by mouth. 0 Active Acid-Eicosapent (FISH OIL) 120-180 mg capsule Multivitamins with Take 1 Tab by 0 Active Minerals tablet mouth daily. UNABLE TO FIND Med Name:vit C 0 Active 500 mg . Zinc 15 mg tablet Take by mouth. 0 Active acetaminophen (TYLENOL) Take 650 mg by 0 Active 500 mg tablet mouth every 6 hours as needed for Pain. aspirin chewable 81 mg Take 81 mg by 0 Active tablet mouth daily. 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 Non-Hodgkin lymphoma 09/30/2013 Surgical History Surgery Date Site/Laterality Comments TONSILLECTOMY HERNIA REPAIR Medical History Medical History Date Comments Hypertension Family History Medical History Relation Comments Cancer Father Cancer Mother Cancer Sister Relation Status Comments Father Mother Sister Social History Tobacco Use Types Packs/Day Years Used Date Smoking Tobacco: Former Smokeless Tobacco: Never Alcohol Use Standard Drinks/Week Comments No 0 (1 standard drink = 0.6 oz pure alcoho l) Sex Assigned at Date Recorded Not on file Obstetrics History Last Filed Vital Signs Vital Sign Reading Time Taken Comments Blood Pressure 118/70 09/24/2013 1400 EST Pulse - - Temperature 36.6 ??C (97.9 ??F) 09/24/2013 1400 EST Respiratory Rate 20 09/24/2013 1400 EST Oxygen Saturation 98% 09/24/2013 1400 EST Inhaled Oxygen Concentration - - Weight 68.9 kg (152 lb) 09/23/2013 0852 EST Height 167.6 cm (5' 5.98) 09/23/2013 0852 EST Body Mass Index 24.55 09/23/2013 0852 EST Plan of Treatment Health Maintenance Due Date Last Done Comments Hepatitis C Screen 1950 COVID-19 Vaccine (#1) 1950 Fall Risk Screening 2015 Advance Directives For more information, please contact: [phone] Documents on File Type Date Recorded Patient High Value Associate Explanati on Advance Directive 09/16/2010 2:09 DPOA Advance Directive 09/24/2013 6:34 Care Teams Body Straightener Relationship Specialty Start Date End Date Elizabeth Sanders MD PCP - General 09/03/[address] [place] [address] [address] [place] [id number]
--- OUTSIDE RECORDS SUMMARY | 2022-06-17 00:51 | XMS_ITS | Encounter Summary ---
:1950 Author Organization [place] [address] Care Team Providers Name Role Phone Elizabeth Sanders MD Primary Care Provider Encounter Details Date Type Department Care Team Description 08/22/2013 [facility] Only [facility] [place] [address] HEMATOLOGY/ONCOLOGY [phone] DEPT. [place], [place] [address] (Wo rk) Social History Tobacco Use Types Packs/Day Years Used Date Smoking Tobacco: Never Assessed Sex Assigned at Date Recorded Not on file documented as of this encounter Plan of Treatment Pending Results Name Type Priority Associated Diagnoses Date/Ti mi Film Library- Storage Imaging Routine 2013 8:15 AM EST only MR Head documented as of this encounter Visit Diagnoses Not on filedocumented in this encounter Care Teams Commercial Solar Sales Consultant Relationship Specialty Start Date End Date Elizabeth Sanders MD PCP - General 06/15/10 10/16/13 [address] [place] [address] documented as of this encounter
--- OUTSIDE RECORDS SUMMARY | 2022-06-17 00:51 | XMS_ITS | Encounter Summary ---
:1950 Author Organization [facility] Address [address] [place] [address] Care Team Providers Name Role Phone Elizabeth Sanders MD Primary Care Provider Reason for Referral Consultation (Routine) - Closed Specialty Diagnoses / Procedures Referred By Contact Refer red To Contact Radiation Oncology Diagnoses MALT lymphoma Wilma Heard Kapadia, Nirav S, MD MD [address] [place] [address] D R RADIATION ONCOLOGY HEMATOLOGY/ONCOLOGY [place], [place]PT. [address] [place] [address] Referral ID Status Reason Start Date Expiration Date Visits V isits Requested Authorized [id number] Closed Consult, 10/18/2013 04/16/2014 1 1 Test & Treat Reason for Visit Reason Comments Advice Only Encounter Details Date Type Department Care Team Description 10/18/2013 Office Visit Hematology and Wilma Heard ymphoma Oncology at [facility] MD Snehal (Primary Dx) [facility] [address] [place] HEMATOLOGY/ONCOLOGY [id number] DEPT. [phone] [place], [place] [address] (Wo rk) Social History Tobacco Use Types Packs/Day Years Used Date Smoking Tobacco: Never Sex Assigned at Date Recorded Not on file documented as of this encounter Last Filed Vital Signs Vital Sign Reading Time Taken Comments Blood Pressure 145/80 10/18/2013 1:19 PM EDT Pulse 63 10/18/2013 1:19 PM EDT Temperature 36.5 ??C (97.7 ??F) 10/18/2013 1:19 PM EDT Respiratory Rate 18 10/18/2013 1:19 PM EDT Oxygen Saturation 100% 10/18/2013 1:19 PM EDT Inhaled Oxygen Concentration - - Weight 70.5 kg (155 lb 8 oz) 10/18/2013 1:19 PM EDT Height 166 cm (5' 5.35) 10/18/2013 1:19 PM EDT Body Mass Index 25.6 10/18/2013 1:19 PM EDT documented in this encounter Progress Notes Wilma Heard MD - 10/19/2013 9:16 PM EDT ++++++++++++++++++++++++++++++++++++++++++++++++++++++++++++++++ Attending Addendum: I personally saw, examined and interviewed the patient. I agree with the history, physical, assessment and plan in the note by Dr Cadet of the same date. I have reviewed all pertinent laboratory and radiographic findings. We discussed the patient in detail and formulated the assessment and plan together. it was a pleasure to meet Mr. Ribera and his friend Dejuan. 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 His history previous spider bite with symptoms and for years preceding the diagnosis Is intriguing. We know that many marginal zone lymphomas develop and chronic antigen stimulation. Although we can never know for sure it is intriguing and somewhat compelling that perhaps preceding spider bite actually did have something to do with the development of his lymphoma. He now presentsWith biopsy proven extraorbital marginal zone lymphoma. These lymphomas are most frequently stage I and can be treated with potential cure with radiation therapy alone. Splaying the need for full staging to rule out any other evidence of lymphoma. This would include a CAT scan of the neck, chest, abdomen, and pelvis. In addition we will get labs to be drawn today. Finally he needs to have a bone marrow biopsy. All of these procedures were explained to the patient. Given that the symptoms have been so slow to change in prolonged , we did not feel that he needed to change his upcoming trip to [place]. We will plan a staging on return from [place]. Would [facility]. We will go ahead schedule this for him. We will call him with the staging studies and plan to see him in about 2 months at which point he should have completed radiation therapy. 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 This was discovered after he presented with 3-4 years of increasing right upper eyelid edema, eyelid droop, diplopia, flashing lights and increasing retroorbital pressure. He tells me that right around his 60th birthday he was bitten by a spider in the corner of the right eye - he developed erythema and edema that spread down his face and into his neck. This did not improve much after 2 courses of antibiotics but eventually subsided somewhat, although he tells me that this eye was never quite the same after this happened. Several months later he began to see flashing lights intermittently out of the right eye (4-5 episodes and then not again) - for these he underwent carotid duplex, CT+/- MRI head, and ophthalmologic exam, all of which he states were normal. His diplopia and posterior eye pressure persisted and ultimately led him to seek medical attention, thinking that maybe some of the extra tissue around his eyelid could be resected so that he could read better and this promptedimaging which led to his diagnosis. MRI on 08/22/13 revealed a 4x1.8x1.8cm mass is superiomedial right orbit without definite invasive qualities, and CT scan on 09/04/13 showed right proptosis with large irregularly shaped homogenous soft tissue mass within the right orbit with both extraconal and intraconal involvement with subtle associated bony remodeling and expansion of the bony right orbit. Transnasal biopsy on 09/24/13 at [facility] revealed [place] lymphoma of small B lymphocytes, probably extranodal marginal zone (vs. Lymphoplasmacytic lymphoma), CD19+, CD20+, FMC7+, HLADR+, CD5-, CD10-, CD23-, CD38-. He presents today stating that he is feeling well in general, but that his diplopia and eye pressurepersist (although somewhat better after the biopsy). He denies fevers, sweats, weight loss, recent cold/flu sx, cough, chest pain, shortness of breath, abdominal pain, nausea, vomiting, diarrhea, constipation, dysuria, hematuria, gait disturbance, focal weakness, rash. He does have occasional mild headaches, better since the biopsy. Patient Active Problem List Diagnosis ??? MALT lymphoma 3-4 years of increasing right upper eyelid edema, eyelid droop, diplopia, flashing lights and increasing retroorbital pressure 08/22/13 MRI ([facility]) revealed 4x1.8x1.8cm mass is superiomedial right orbit without definite invasive qualities 09/04/13 CT ([facility]) right proptosis with large irregularly shaped homogenous soft tissue mass within the right orbit with both extraconal and intraconal involvement with subtle associated bony remodelingand expansion of the bony right orbit 09/24/13 biopsy ([facility]) [place] lymphoma of small B lymphocytes, probably extranodal marginal zone (vs. Lymphoplasmacytic lymphoma), CD19+, CD20+, FMC7+, HLADR+, CD5-, CD10-, CD23-, CD38- Current Outpatient Prescriptions on File Prior to Visit Medication Sig Dispense Refill ??? hydrochlorothiazide (HYDRODIURIL) 25 mg tablet 12.5mg, PO, Once daily ??? atenolol (TENORMIN) 50 mg tablet 50MG, PO, Once daily ??? [DISCONTINUED] cephALEXin (KEFLEX) 500 mg capsule 500MG = 1 Capsule(s), PO, Four times daily ??? Tadalafil (CIALIS) 20 mg Tab 20MG, PO, as directed FH: Father from NHL at age 77 Mother from AML at age 82 Sister from lung cancer at age 71 Sister living and well at age 58 Biological daughter living and well at age 40 Adopted son age 42 living and well Social: Lives most of the time with Dejuan, and sometimes alone. Dejuan brings his dog over frequently as well. 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 Very active and fit, loves to read, snowshoe, do projects around the house and property. Smoked 1PPD for 30 years and quit in 1997. Quit drinking alcohol in 1989. BP 145/80 Pulse 63 Temp 36.5 ??C (97.7 ??F) (Oral) Resp 18 Ht 166 cm (5' 5.35) Wt 70.534 kg (155 lb 8 oz) BMI 25.60 kg/m2 SpO2 100% General: alert, conversant, NAD HEENT: there is induration in the right periorbital area and mild proptosis of the right eye, PERRLA, EOMI, mmm, no oropharyngeal lesions, erythema or exudates, symmetric palate raise, visual wilson intact Neck: no palpable lymphadenopathy in the neck or groin, but 1 pea-sized palpable node in each axilla CVS: regular S1S2 without MRG Chest: CTAB, no crackles or wheezes Abdomen: soft, NT, ND, BS+, spleen not palpable Extremities: no edema, normal bulk and tone Neuro: ambulatory, CN 2-12 grossly intact, moves all 4 extremities Skin: no visible rashes or lesions Recent Results (from the past 24 hour(s)) CBC (WITH DIFF) Component Value Range WBC 6.0 4.0 - 10.0 x10(3)/mcL RBC 4.49 (*) 4.63 - 6.08 x10(6)/mcL Hemoglobin 14.2 13.7 - 17.5 gm/dL Hematocrit 40.6 40.0 - 51.0 % MCV 90.4 79.0 - 92.0 fL MCH 31.6 25.6 - 32.2 pg MCHC 35.0 32.0 - 36.5 gm/dL Platelets 232 145 - 370 x10(3)/mcL RDWSD 38.5 35.0 - 46.0 fL RDWCV 11.7 10.9 - 14.4 % MPV 9.0 9.0 - 12.0 fL COMPREHENSIVE METABOLIC PANEL (NON-FASTING) Component Value Range Glucose Lvl 92 60 - 199 mg/dL BUN 15 10 - 20 mg/dL Creatinine 0.85 0.80 - 1.50 mg/dL Sodium 133 (*) 135 - 145 mmol/L Potassium 3.2 (*) 3.5 - 5.0 mmol/L Chloride 95 (*) 98 - 107 mmol/L CO2 29 22 - 31 mmol/L Anion Gap 9 5 - 15 mmol/L Anion Gap 9 5 - 15 mmol/L Calcium 9.3 8.5 - 10.5 mg/dL Total Protein 7.3 6.4 - 8.3 gm/dL Albumin 4.3 3.2 - 5.2 gm/dL AST 23 0 - 39 unit/L ALT 21 0 - 55 unit/L Alk Phos 77 40 - 120 unit/L Total Bilirubin 0.3 0.2 - 1.3 mg/dL Bili, Direct 0.1 0.0 - 0.3 mg/dL Estimated GFR >60 >=60 LACTATE DEHYDROGENASE Component Value Range LDH 151 110 - 220 unit/L PROTEIN ELECTROPHORESIS, SERUM Component Value Range Total Prot Elec 7.0 6.4 - 8.3 gm/dL DIFFERENTIAL, AUTOMATED Component Value Range Neutrophils % 52.6 34.0 - 71.0 % Neutr Abs (ANC) 3.14 1.50 - 6.30 x10(3)/mcL Lymphocytes % 34.6 19.0 - 53.0 % Lymphocytes Abs 2.1 1.0 - 3.6 x10(3)/mcL Monocytes % 8.7 4.0 - 13.0 % Monocyte Abs 0.5 0.2 - 1.0 x10(3)/mcL Eosinophils % 3.7 0.0 - 7.0 % Eosinophils Abs 0.2 0.0 - 0.5 x10(3)/mcL Basophils % 0.2 0.0 - 2.0 % Basophils Abs 0.0 0.0 - 0.2 x10(3)/mcL Immature Gran % 0.20 0.00 - 0.66 % Brittanie Gran Abs 0.01 0.00 - 0.05 x10(3)/mcL OSH images reviewed Assessment 63 year old male with newly diagnosed MALT lymphoma of the right orbit (although sounds like this was a slow, chronic problem over the past 4 years). We discussed the association with the spider bite -this definitely is an interesting story which seems like it could be related (we do know that chronic irritation by viruses can lead to the development of MALT lymphoma, unclear if spider venom or justforeign body introduction could do the same) - I suspect that we will never know if these events arerelated. We discussed that the first step is to make sure that there is not any lymphoma anywhere else in his body by getting a CT neck, CAP, bone marrow biopsy and possible biopsy of the axillary lymph nodes if they appear enlarged on imaging. If the lymphoma is confined to the orbit, then it can be potentially cured with radiation to the area. If there is disease elsewhere, then it may still be useful because he is having bothersome symptoms from it, although he may also need some systemic therapyin addition to it. Plan: CBC, CMP, LDH, SPEP CT neck, CAP Bone marrow biopsy Refer to radiation oncology in [facility] If there is no lymphoma outside the orbit, we will plan to see him back after he has completed radiation (tentatively plan for 2 months) documented in this encounter Miscellaneous Notes Addendum Note - Wilma Heard MD - 10/19/2013 10:52 PM EDT Addended by: WILMA HEARD on: 10/19/2013 10:52 PM Modules accepted: Level of Service documented in this encounter Plan of Treatment Scheduled Referrals Name Type Priority Associated Diagnoses Order S chedule Referral to Outpatient Referral Routine MALT lymphoma Ordered : Radiation Oncology 4 documented as of this encounter Procedures Procedure Name Priority Date/Time Associated Comments Diagnosis IMMUNOGLOBULIN FREE STAT 10/18/2013 3:21 MALT lymphoma Resu lts for this LIGHT CHAINS, SERUM PM EDT procedur e are in the results section. IMMUNOGLOBULINS, STAT 10/18/2013 3:21 MALT lymphoma Results for this QUANTITATIVE PM EDT procedure are i n the results section. IMMUNOFIXATION STAT 10/18/2013 3:21 Results fo r this ELECTROPHORESIS PM EDT procedure ar e in the results section. DIFFERENTIAL, AUTOMATED STAT 10/18/2013 3:21 R esults for this PM EDT procedure are i n the results section. HEPATITIS C ANTIBODY STAT 10/18/2013 3:21 MALT lymphoma Res ults for this PM EDT procedure are i n the results section. HEPATITIS B CORE STAT 10/18/2013 3:21 MALT lymphoma Results for this ANTIBODY, TOTAL PM EDT procedure ar e in the results section. HEPATITIS B SURFACE STAT 10/18/2013 3:21 MALT lymphoma Resu lts for this ANTIBODY PM EDT procedure are i n the results section. HEPATITIS B SURFACE STAT 10/18/2013 3:21 MALT lymphoma Resu lts for this ANTIGEN PM EDT procedure are i n the results section. CBC (WITH DIFF) STAT 10/18/2013 3:21 MALT lymphoma Results for this PM EDT procedure are i n the results section. PROTEIN ELECTROPHORESIS, STAT 10/18/2013 3:21 MALT lymphoma Results for this SERUM PM EDT procedure are i n the results section. LACTATE DEHYDROGENASE STAT 10/18/2013 3:21 MALT lymphoma Re sults for this PM EDT procedure are i n the results section. COMPREHENSIVE METABOLIC STAT 10/18/2013 3:21 MALT lymphoma Results for this PANEL (NON-FASTING) PM EDT procedur e are in the results section. REQUEST FOR 2ND READ CT Routine 10/18/2013 3:05 R esults for this HEAD PM EDT procedure are i n the [...] stage lymphoma Comparison CT performed 09/04/2013 at [facility]. Technique Examination was done following intraveno [...] stage lymphoma Comparison CT performed 09/04/2013 at [facility]. Technique Examination was done following intraveno [...] interpretation. Wilma Heard MD IMG CT ORDERABLES Immunofixation Electrophoresis (10/18/2013 3:21 PM EDT) athologist Signature FREDY See Note CERNER MILLENNIUM Comment: There is approximately 0.19 gm/dL of mon oclonal IgM lambda immunoglobulin present in this patient's serum. Additio nal restriction bands noted in kappa light chain region. Please see scanned r eport in Chart Review under the Laboratory Heading. Dr. Seamus Restrepo 10/23/13 Specimen Anatomical Collection Method Collection Time Receive d Time (Source) Location / / Volume Laterality Blood specimen 10/18/2013 3:21 PM 014 3:48 (specimen) EDT PM EDT Narrative This result has an attachment that is no t available. Resulting Agency Comment Spec In Lab Wilma Heard MD CHEMISTRY ORDERABLES Performing Organization Address City/State/[place] [address] CERNER MILLENNIUM Differential, Automated (10/18/2013 3:21 PM EDT) athologist Signature Neutrophils % 52.6 34.0 - CERNER 71.0 % MILLENNIUM Neutr Abs (ANC) 3.14 1.50 - CERNER 6.30 MILLENNIUM x10(3)/mcL Lymphocytes % 34.6 19.0 - CERNER 53.0 % MILLENNIUM Lymphocytes Abs 2.1 1.0 - 3.6 CERNER x10(3)/mcL MILLENNIUM Monocytes % 8.7 4.0 - 13.0 CERNER % MILLENNIUM Monocyte Abs 0.5 0.2 - 1.0 CERNER x10(3)/mcL MILLENNIUM Eosinophils % 3.7 0.0 - 7.0 CERNER % MILLENNIUM Eosinophils [...] Location / / Volume Laterality Blood specimen 10/18/2013 3:21 PM 014 3:24 (specimen) EDT PM EDT Wilma Heard MD HEMATOLOGY ORDERABLES Performing Organization Address City/State/[place] [address] CERNER MILLENNIUM Free Light Chains, Serum (10/18/2013 3:21 PM EDT) P athologist Signature [place] Free 1.69 0.33 - CERNER Light Chains 1.94 mg/dL MILLENNIUM Lambda Free 1.04 0.57 - CERNER Light Chains 2.63 mg/dL MILLENNIUM [place]/Lambda 1.6250 0.2600 - CERNER Free Light 1.6500 MILLENNIUM Chain Ratio Specimen Anatomical Collection Method Collection Time Receive d Time (Source) Location / / Volume Laterality Blood specimen 10/18/2013 3:21 PM 014 3:24 (specimen) EDT PM EDT Resulting Agency Comment Spec In Lab Wilma Heard MD CHEMISTRY ORDERABLES Performing Organization Address City/[facility]/ZIP Code Phon e Number [address] CERNER MILLENNIUM (ABNORMAL) Immunoglobulins, Quantitative (10/18/2013 3:21 PM EDT) athologist Signature IgG 1070 700 - 1600 CERNER mg/dL MILLENNIUM IgA 133 70 - 400 CERNER mg/dL MILLENNIUM IgM 624 (H) 40 - 230 CERNER mg/dL MILLENNIUM Specimen Anatomical Collection Method Collection Time Receive d Time (Source) Location / / Volume Laterality Blood specimen 10/18/2013 3:21 PM 014 3:24 (specimen) EDT PM EDT Resulting Agency Comment Spec In Lab Wilma Heard MD CHEMISTRY ORDERABLES Performing Organization Address City/[facility]/ZIP [facility] Phon e Number [address] CERNER MILLENNIUM Protein Electrophoresis, serum (10/18/2013 3:21 PM EDT) athologist Signature Total Prot 7.0 6.4 - 8.3 CERNER Elec gm/dL MILLENNIUM Albumin Elect 4.18 3.60 - CERNER 6.00 gm/dL MILLENNIUM Alpha1-Globuli 0.15 0.10 - CERNER n 0.30 gm/dL MILLENNIUM Alpha2-Globuli 0.73 0.40 - CERNER n 0.90 gm/dL MILLENNIUM Beta Globulin 0.67 0.50 - CERNER 1.00 gm/dL MILLENNIUM Gamma Globulin 1.27 0.50 - CERNER 1.30 gm/dL MILLENNIUM M1 Band 0.19 gm/dL CERNER MILLENNIUM Comment: The serum protein electrophoresis (PEP) shows a band that is consistent with a paraprotein. ??Immunofixation (FREDY) and quantitative immunoglobulins (ONI) testing will be performed on this sample to verify that it is a monoclonal immunoglobulin. Scan See Note CERNER MILLENNIUM Comment: Please see scanned report in Ch art Review under the [facility] Laboratory Heading. Specimen Anatomical Collection Method Collection Time Receive d Time (Source) Location / / Volume Laterality Blood specimen 10/18/2013 3:21 PM 014 3:24 (specimen) EDT PM EDT Narrative This result has an attachment that is no t available. Resulting Agency Comment Spec In Lab Wilma Heard MD CHEMISTRY ORDERABLES Performing Organization Address City/[facility] Phon e Number [address] CERNER MILLENNIUM Hepatitis B Core Antibody, Total (10/18/2013 3:21 PM EDT) Analysis Performed At Patho logist Time Signature Hep B Core Ab Negative Negative [facility] Specimen Anatomical Collection Method Collection Time Receive d Time (Source) Location / / Volume Laterality Blood specimen 10/18/2013 3:21 PM 014 3:24 (specimen) EDT PM EDT Resulting Agency Comment Spec In Lab Wilma Heard MD CHEMISTRY ORDERABLES Performing Organization Address [facility] Code Phon e Number [address] CERNER MILLENNIUM Hepatitis B Surface Antibody (10/18/2013 3:21 PM EDT) Analysis Performed At [facility] logist Time Signature HepB Surface Negative CERNER Ab MILLENNIUM Comment: Expected Results: Vaccinated: Positive Unvaccinated: Negative Please note: A positive result for this assay is consistent with a concentration of anti-HBs antibodies >10 mIU/ml, which indicates that anti-HBs antibodies have been detected at levels consistent with protective immunity against HBV infection. Specimen Anatomical Collection Method Collection Time Receive d Time (Source) Location / / Volume Laterality Blood specimen 10/18/2013 3:21 PM 014 3:24 (specimen) EDT PM EDT Resulting Agency Comment Spec In Lab Wilma Heard MD IMMUNOLOGY ORDERABLES Performing Organization Address City/[facility] Phon e Number [address] CERNER MILLENNIUM Hepatitis B Surface Antigen (10/18/2013 3:21 PM EDT) Analysis Performed At Patho logist Time Signature HepB Surface Negative Negative CERNER Ag MILLENNIUM Specimen Anatomical Collection Method Collection Time Receive d Time (Source) Location / / Volume Laterality Blood specimen 10/18/2013 3:21 PM 014 3:24 (specimen) EDT PM EDT Resulting Agency Comment Spec In Lab Wilma Heard MD CHEMISTRY ORDERABLES Performing Organization Address City/[facility]/[place] [address] CERNER MILLENNIUM Hepatitis C Antibody (10/18/2013 3:21 PM EDT) Analysis Performed At Patho logist Time Signature Hepatitis C Ab Negative Negative CERNER MILLENNIUM Specimen Anatomical Collection Method Collection Time Receive d Time (Source) Location / / Volume Laterality Blood specimen 10/18/2013 3:21 PM 014 3:24 (specimen) EDT PM EDT Resulting Agency Comment Spec In Lab Wilma Heard MD IMMUNOLOGY ORDERABLES Performing Organization Address City/[facility]/ZIP Code Phon e Number [address] CERNER MILLENNIUM Lactate Dehydrogenase (10/18/2013 3:21 PM EDT) P athologist Signature LDH 151 110 - 220 CERNER unit/L MILLENNIUM Specimen Anatomical Collection Method Collection Time Receive d Time (Source) Location / / Volume Laterality Blood specimen 10/18/2013 3:21 PM 014 3:24 (specimen) EDT PM EDT Resulting Agency Comment Spec In Lab Wilma Heard MD CHEMISTRY ORDERABLES Performing Organization Address City/[facility]/ZIP [facility] Phon e Number [address] CERNER MILLENNIUM (ABNORMAL) Comprehensive metabolic panel (non-fasting) (10/18/2013 3:21 PM EDT) P athologist Signature Glucose Lvl 92 60 - 199 CERNER mg/dL MILLENNIUM Comment: Diabetes: >=200 mg/dL plus symp toms BUN 15 10 - 20 mg/dL CERNER MILLENNIU M Creatinine 0.85 0.80 - 1.50 mg/dL CERNER MILL ENNIUM Comment: Please note that the pediatric reference intervals supplied above were not validated at [facility]. Results from pediatri c patients should be interpreted in conjunction to the patient's age, height and muscle mass. Sodium 133 (L) 135 - 145 mmol/L CERNER BHARAT NIUM Potassium 3.2 (L) 3.5 - 5.0 mmol/L CERNER BHARAT NIUM Comment: Please note: ??Patients with WBC >100,00 0 may have falsely elevated Potassium levels. ??For accurate Potassium quantif ication in these patients send serum separator tube (gold top) for subsequent determinations. ??Contact the Clinical Chemistry Laboratory if there are any qu estions. Chloride 95 (L) 98 - 107 mmol/L CERNER MILLENN IUM CO2 29 22 - 31 mmol/L CERNER MILLENNI UM Anion Gap 9 5 - 15 mmol/L CERNER MILLENNIU M Anion Gap 9 5 - 15 mmol/L CERNER MILLENNIU M Calcium 9.3 8.5 - 10.5 mg/dL CERNER BHARAT NIUM Total Protein 7.3 6.4 - 8.3 gm/dL CERNER MIL LENNIUM Albumin 4.3 3.2 - 5.2 gm/dL CERNER MILLENN IUM AST 23 0 - 39 unit/L CERNER MILLENNIU M ALT 21 0 - 55 unit/L CERNER MILLENNIU M Alk Phos 77 40 - 120 unit/L CERNER MILLENN IUM Total Bilirubin 0.3 0.2 - 1.3 mg/dL CERNER M ILLENNIUM Bili, Direct 0.1 0.0 - 0.3 mg/dL CERNER MILL ENNIUM Estimated GFR >60 >=60 CERNER MILLENNIU M Comment: This estimated GFR (eGFR) value was calc ulated using the MDRD equation which has been validated on patients between t he ages of 18 and 70. The MDRD should not be used to assess kidney function in patients < 18 years of age or in patients with extremes of body mass, or in patients with acute kidney failure. This value should be multiplied by 1.2 f or patients. For further information please copy and past e the following links into your internet browser. http://www.nkdep.nih.gov/lab-evaluation. shtml http://www.kidney.org/professionals/ Specimen Anatomical Collection Method Collection Time Receive d Time (Source) Location / / Volume Laterality Blood specimen 10/18/2013 3:21 PM 014 3:24 (specimen) EDT PM EDT Resulting Agency Comment Spec In Lab Wilma Heard MD CHEMISTRY ORDERABLES Performing Organization Address City/[facility]/ZIP Code Phon e Number [address] CERNER MILLENNIUM (ABNORMAL) CBC (with Diff) (10/18/2013 3:21 PM EDT) P athologist Signature WBC 6.0 4.0 - 10.0 CERNER x10(3)/mcL MILLENNIUM RBC 4.49 (L) 4.63 - CERNER 6.08 MILLENNIUM x10(6)/mcL Hemoglobin 14.2 13.7 - CERNER 17.5 gm/dL MILLENNIUM Hematocrit 40.6 40.0 - CERNER 51.0 % MILLENNIUM MCV 90.4 79.0 - CERNER 92.0 fL MILLENNIUM MCH 31.6 25.6 - CERNER 32.2 pg MILLENNIUM MCHC 35.0 32.0 - CERNER 36.5 gm/dL MILLENNIUM Platelets 232 145 - 370 CERNER x10(3)/mcL MILLENNIUM RDWSD 38.5 35.0 - CERNER 46.0 fL MILLENNIUM RDWCV 11.7 10.9 - CERNER 14.4 % MILLENNIUM MPV 9.0 9.0 - 12.0 CERNER fL MILLENNIUM Specimen Anatomical Collection Method Collection Time Receive d Time (Source) Location / / Volume Laterality Blood specimen 10/18/2013 3:21 PM 014 3:24 (specimen) EDT PM EDT Resulting Agency Comment Spec In Lab Wilma Heard MD HEMATOLOGY ORDERABLES Performing Organization Address City/[facility]/[place] [address] CERNER MILLENNIUM Request for 2nd read CT Head (10/18/2013 3:05 PM EDT) Anatomical Region Laterality Modality Head Other Specimen (Source) Anatomical Collection Method Collection Time Re ceived Time Location / / Volume Laterality 10/18/2013 3:05 PM EDT Narrative 11/06/2013 5:00 PM EDT Examination OUTSIDE CT HEAD Clinical History patient with new retro-orbital lymphoma, need a second read of CT head from OSH for patient care, planning for radiation , etc; What Modality is the exam? CT Scan; Body Part (please add comments as necessary): Head; I believe a reinterpretation of this exam may alter care of Patient. Yes Comparison None ?? Technique CT paranasal sinuses axial images with c oronal and sagittal reconstructions Findings There is minimal mucosal thickening in t he caudal aspect of the left frontal sinus. ??There is mild mucosal thickenin g in the left ethmoid air cells and near the frontal ethmoidal recess. There is m ild mucosal thickening in the dependent portion of the maxillary sinuses left gr eater than right with evidence of rounded densities in the left maxillary antrum dependently suggesting mucosal retention cyst. There is a rightward mireya al septal spur. The ostiomeatal complex is patent bilaterally. No air-fluid levels present. ?? There is a large mass projecting in the right orbit the mass projects in the extra Conal space of the right orbit and extends to the intra Conal space. ?? This mass projects in the superior and m edial aspect of the right orbit. There is extensive edema involving the right o rbit in the preseptal space. ??There is right-sided proptosis. ?? Impression Very mild paranasal sinus disease. Large right orbital mass lesion involvin g intra and extra Conal spaces with proptosis. Findings are consistent with clinical history of lymphoma ?? Procedure Note Antonio Vogt MD - 11/06/2013Formatt ing of this note might be different from the original. Examination OUTSIDE CT HEAD Clinical History patient with new retro-orbital lymphoma, need a second read of CT head from OSH for patient care, planning for radiation , etc; What Modality is the exam? CT Scan; Body Part (please add comments as necessary): Head; I believe a reinterpretation of this exam may alter care of Patient. Yes Comparison None Technique CT paranasal sinuses axial images with c oronal and sagittal reconstructions Findings There is minimal mucosal thickening in t he caudal aspect of the left frontal sinus. There is mild mucosal thickening in the left ethmoid air cells and near the frontal ethmoidal recess. There is m ild mucosal thickening in the dependent portion of the maxillary sinuses left gr eater than right with evidence of rounded densities in the left maxillary antrum dependently suggesting mucosal retention cyst. There is a rightward mireya al septal spur. The ostiomeatal complex is patent bilaterally. No air-fluid levels present. There is a large mass projecting in the right orbit the mass projects in the extra Conal space of the right orbit and extends to the intra Conal space. This mass projects in the superior and m edial aspect of the right orbit. There is extensive edema involving the right o rbit in the preseptal space. There is right-sided proptosis. Impression Very mild paranasal sinus disease. Large right orbital mass lesion involvin g intra and extra Conal spaces with proptosis. 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
--- OUTSIDE RECORDS SUMMARY | 2022-06-17 00:51 | XMS_ITS | Encounter Summary ---
:1950 Author Organization [facility] [place] [address] Care Team Providers Name Role Phone Elizabeth Sanders MD Primary Care Provider Encounter Details Date Type Department Care Team Description 09/10/2013 [facility] [place] [address] HEMATOLOGY/ONCOLOGY [phone] DEPT. [place], [place] [address] (Wo rk) Social History Tobacco Use Types Packs/Day Years Used Date Smoking Tobacco: Never Assessed Sex Assigned at Date Recorded Not on file documented as of this encounter Plan of Treatment Pending Results Name Type Priority Associated Diagnoses Date/Ti nj Film Library- Storage Imaging Routine 2013 8:15 AM EST only DX Chest documented as of this encounter Visit Diagnoses Not on filedocumented in this encounter Care Teams Equal Opportunity Officer Relationship Specialty Start Date End Date Elizabeth Sanders MD PCP - General 06/15/10 10/16/13 [address] [place] [address] documented as of this encounter
--- OUTSIDE RECORDS SUMMARY | 2022-06-17 00:51 | XMS_ITS | Encounter Summary ---
:1950 Author Organization [facility] [place] [address] Care Team Providers Name Role Phone Elizabeth Sanders MD Primary Care Provider Encounter Details Date Type Department Care Team Description 10/18/2013 [facility] [place] [address] HEMATOLOGY/ONCOLOGY [phone] DEPT. [place], [place] [address] (Wo rk) Social History Tobacco Use Types Packs/Day Years Used Date Smoking Tobacco: Never Sex Assigned at Date Recorded Not on file documented as of this encounter Plan of Treatment Scheduled Orders Name Type Priority Associated Diagnoses Order S chedule ([facility] MSURG)BONE Procedures Routine One Time for 1 MARROW ASP PERFORMED Occurre nces starting W/BX THRU BX INCISION 2013 until 10/19/2013 ([facility] MSURG) UNILAT Procedures Routine One Time for 1 BONE MARROW BIOSPY Occurrenc es starting 10/19/2013 unti l 10/19/2013 documented as of this encounter Visit Diagnoses Not on filedocumented in this encounter Care Teams Game Producer Relationship Specialty Start Date End Date Elizabeth Sanders MD PCP - General 10/18/[address] [place] [address] documented as of this encounter
--- OUTSIDE RECORDS SUMMARY | 2022-06-17 00:51 | XMS_ITS | Encounter Summary ---
:1950 Author Organization [facility] [place] [address] Care Team Providers Name Role Phone Elizabeth Sanders MD Primary Care Provider Encounter Details Date Type Department Care Team Description 10/18/2013 Hospital Encounter XRay at [address] [place] [address] Social History Tobacco Use Types Packs/Day [...] on filedocumented in this encounter Care Teams Antenna Installer Relationship Specialty Start Date End Date Elizabeth Sanders MD PCP - General 10/18/[address] [place] [address] documented as of this encounter
--- OUTSIDE RECORDS SUMMARY | 2022-06-17 00:51 | XMS_ITS | Encounter Summary ---
:1950 Author Organization [facility] Address [address] [place] [address] Care Team Providers Name Role Phone Elizabeth Sanders MD Primary Care Provider Reason for Visit Reason Comments Post-OP Follow Up Encounter Details Date Type Department Care Team Description 09/30/2013 Office Visit [facility] David Dewey Malign ant neoplasm of right orbit ([facility]) (Primary Dx); ENT- [facility] MD Bogdan Non-Hodgkin lymphoma ([facility]) [address] [facility] [address] [place] [address] [place] [phone] Social History Tobacco Use Types Packs/Day Years Used Date Smoking Tobacco: Former Smokeless Tobacco: Never Alcohol Use Standard Drinks/Week Comments No 0 (1 standard drink = 0.6 oz pure alcoho l) Sex Assigned at Date Recorded Not on file documented as of this encounter Discharge Diagnoses Diagnosis 190.1 MALIGN NEOPL ORBIT[ICD-9-CM] 202.80 L[facility]MPHOMA [facility] SITE XTRNOD/SOLID O RG[ICD-9-CM] documented in this encounter Progress Notes David Dewey MD - 09/30/2013 1413 EDT Subjective: Patient ID: Shadi Falcon Jr. is an 63 y.o. male. Chief Complaint Patient presents with ??? Post-OP Follow Up HPI Pilo Falcon is a 63-year-old gentleman returning for his 1st postoperative visit. He has congestionon the right side. No other voice complaints. No further visual impairment other than his baseline transient diplopia. He denies any pain. He did have some bleeding, which persisted for a few days, buthas since resolved. He has been using saline nasal spray and has since introduced gentle sinus irrigations with the NeilMed saline rinse 2 to 3 times per day. 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 Patient Active Problem List Diagnosis ??? Malignant neoplasm of right orbit ??? Non-Hodgkin lymphoma Past Medical History Diagnosis Date ??? Hypertension Past Surgical History Procedure Laterality Date ??? Tonsillectomy ??? Hernia repair Family History Problem Relation Age of Onset ??? Cancer Mother ??? Cancer Father ??? Cancer Sister Social History Social History ??? Marital Status: Spouse Name: N/A Number of Children: N/A ??? Years of Education: N/A Occupational History ??? Not on file. Social History Main Topics ??? Smoking status: Former Smoker ??? Smokeless tobacco: Never Used ??? Alcohol Use: No ??? Drug Use: Not on file ??? Sexually Active: Not on file Other Topics Concern ??? Not on file Social History Narrative ??? No narrative on file Outpatient Prescriptions Marked as Taking for the 09/30/13 encounter (Office Visit) with David Dewey MD Medication Sig Dispense Refill ??? acetaminophen (TYLENOL) 500 mg tablet Take 650 mg by mouth every 6 hours as needed for Pain. ??? aspirin chewable 81 mg tablet Take 81 mg by mouth daily. ??? Docosahexanoic Acid-Eicosapent (FISH OIL) 120-180 mg capsule Take by mouth. ??? Multivitamins with Minerals tablet Take 1 Tab by mouth daily. ??? [DISCONTINUED] ondansetron (ZOFRAN-ODT) 4 mg disintegrating tablet Take 1 Tab by mouth every 8 hours as needed for Nausea. 8 Tab 0 ??? UNABLE TO FIND Atenolol combine with HCTZ 100-25 mg, daily in AM . ??? UNABLE TO FIND Med Name:vit C 500 mg . ??? vit [id number] (BIOFLEX) 212-24-90-40 mg tablet Take by mouth. ??? Zinc 15 mg tablet Take by mouth. No Facility-Administered Medications for the 09/30/13 encounter (Office Visit) with David Dewey MD. No Known Allergies ROS - See HPI Objective: There were no vitals taken for this visit. Physical Exam Mr Falcon is alert and oriented, he is not in any acute distress. He has some mild upper lid edema unchanged from his preoperative status. Extraocular movements appear full and conjugate. Anterior rhinoscopy: Mild deviation of the septum to the right. There is retained crusting. Left nasal airway waswidely patent with healthy mucosa. Oral cavity and pharynx are clear without postnasal drainage or bleeding. PROCEDURE: Right nasal endoscopy with cleaning and debridement. Right nostril sprayed with followed by insertion of cotton-soaked cophenylcaine for 10 minutes. Under direct followed by rigid 0-degree pediatric endoscope, crusting is cleaned and debrided from the anterior nasal cavity. Septum is moderately deviated mid-portion limiting access to the middle meatus. There are early adhesion bands forming between the anterior lateral surface of the middle turbinate and lateral nasal wall. These were released using a Harmony elevator and small #5 suction. Scant partially absorbed Nasopore removed with straight suction. Reduced piece of MeroGel placed between the middle turbinate and lateral nasal wall toprevent recurrence of adhesions. Minimal bleeding and procedure well-tolerated. Assessment: 1. Non-Hodgkin's lymphoma, probably extranodal per pathology. Further workup for staging is necessary. If isolated to orbital radiation versus chemoradiation per hem/onc's expertise. Plan: 1. Continue on NeilMed saline rinse 2 to 3 times daily until followup in 1 month. 2. Consultation with hematology for further investigation and staging of non- Hodgkin's lymphoma of the right orbit, per their expertise. 3. Follow up with Dr Dea Mantilla, ophthalmology/oculoplastics later today as scheduled. 4. Follow up in 1 month. Call sooner for any difficulties. cc: MD Vandana Matt MD Julian Sprague, MD documented in this encounter Plan of Treatment Not on filedocumented as of this encounter Visit Diagnoses Diagnosis Malignant neoplasm of right orbit ([facility]) (HCC) - Primary Malignant neoplasm of orbit Non-Hodgkin lymphoma (HCC) Other malignant lymphomas, unspecified s ite, extranodal and solid organ sites documented in this encounter Discontinued Medications Medication Sig Discontinue Reason Start Date End Date oxyCODONE (ROXICODONE) 5 Take 1-2 Tabs by Error 09/24/2013 09/30/2013 mg immediate release mouth every 4 hours tablet as needed for Pain. Earliest Fill Date: 09/24/13 ondansetron (ZOFRAN-ODT) Take 1 Tab by mouth Error 4 09/30/2013 4 mg disintegrating every 8 hours as tablet needed for Nausea. documented as of this encounter Care Teams Brush Cleaner Relationship Specialty Start Date End Date Elizabeth Sanders MD PCP - General 09/03/[address] [place] [address] [address] [place] [address] documented as of this encounter
--- OUTSIDE RECORDS SUMMARY | 2022-06-17 00:51 | XMS_ITS | Encounter Summary ---
:1950 [place] [address] Care Team Providers Name Role Phone Elizabeth Sanders MD Primary Care Provider Encounter Details Date Type Department Care Team Description 11/12/2013 Hospital Encounter Outpatient Surgery Elo Heard MALT lymphoma Center Elyssa Brian MD [facility] [address]ia HEMATOLOGY/ONCOLOGY [place], [place] DEPT. [address] [place] [address] [phone] (Wo rk) Social History Tobacco Use Types [...] in this encounter Discharge Instructions Discharge InstructionsSharon Palomino RN - 11/12/2013 9:11 AM EDT OUTPATIENT [...] 5pm or on a weekend: Call the [facility] tool planer set up operator at and ask for the physician security installation sales technician covering for your doctor. Instructions following sedation [...] drainage occurs, please contact your M. D. [facility] [address] ??? [place] [address] ??? [phone] ??? [email or web address] [facility] ??? [facility] ??? [facility] ??? [facility], [facility] documented in this encounter Medications at Time [...] of Procedure:11/12/13 Proceduralist: Niecy Chauhan, RN, MS, CUSTOMS OFFICER DIAGNOSIS: NHL Pre-Procedure: (x) Consent signed and [...] section. BONE MARROW PANEL Routine 11/12/2013 9:10 ([facility]/APD) AM EDT ([facility] MSURG) BONE MARROW 11/12/2013 [...] stage lymphoma Comparison CT performed 09/04/2013 at [facility]. Technique Examination was done following intraveno us [...] stage lymphoma Comparison CT performed 09/04/2013 at [facility]. Technique Examination was done following intraveno us [...] Component Value Ref Test Analysis Performed At [facility] Range Method Time Signature Cytogenetics Final Report CERNER Acquired Report [facility] Department of Pathology - Cytogenetics Laboratory [address] [place], [place] [address] [id number] ---Clinical Information--- Indication for Study: Marginal Cell Lymphoma Specimen: ? Bone Marrow Accession: ?[id number] Collection Date/Time: 11/12/2013 09:10 Received Date/Time: ?? 11/12/2013 14:23 ---Preparation--- 24 and 48 hour short term cultures Banding Method: ??G-banding Banding Level: 400-450 bands ---Analysis--- Total Cultures Analyzed: ??2 Total Metaphase Cells Counted: ??20 Total Metaphase Cells Analyzed: ??20 Total Metaphase Cells Karyotyped: ??3 ---Karyotype--- 46,XY[20] ---Interpretation--- Cytogenetic analysis revealed a normal male karyotype of 46, XY. No clonal abnormalities were observed. 06.04.14 (Electronic Signature) Verified By: Nicolas ESCALANTE, Ph.D., [facility] [place] Director, Cytogenetics Specimen (Source) Anatomical Collection Method Collection Time Re ceived Time Location / / Volume Laterality 11/12/2013 11:22 AM EDT Wilma Heard MD HEMATOLOGY ORDERABLES Performing Organization Address City/State/[place] [address] CERNER MILLENNIUM Bone Marrow Flow Cytometry Report (11/12/2013 9:10 AM EDT) Component Value Ref Test Analysis Performed At [facility] gist Range Method Time Signature Bone Marrow CERNER Flow ? [facility] MILLENNIUM Cytometry Report ? Provider: ?? WILMA HEARD Pt. Name : ?? EVELYN SORENSON I ?M ? Acc #: ?[id number] ? Pt. ? Col Date: ?? 4 ? /Sex: ?1950,(63 years),Male ? Rec Date: ?? 11/12/2013 ? LOC: ?[facility] ? ANALYTICAL CELL PATHOLOGY ? ---Clinical Information--- ? 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 Staging marrow. ? ---Preparation--- ? FCM: [id number] ? [id number] ? ---Markers--- ? Cells for immunopheno typic [...] staining. Flow ? cytometry analysis performed at [facility] on the ? previously diagnosed orbital lesi on identified a CD5-, kappa-restricted ? immunophenotype (see [id number]), making it unlikely that the marrow and [...] consist of an appropriate mixture of ? [facility] ? Provider: ?? WILMA HEARD Pt. Name: ?? EVELYN SORENSON I ?M ? Acc #: ?[id number] ? Pt. ? Col Date: ?? 4 [...] ? the Clinical Flow Cytometry Laboratory at [facility] ? Center. It has not been cleared or approved by the U.S. Food and Drug ? Administration. The F DA has determined that such clearance or approval [...] Address City/State/ZIP Code [place] [address] [facility] Bone Marrow Final Report (11/12/2013 9:10 AM EDT) Component Value Ref Test Analysis Performed At [facility] gist Range Method Time Signature Bone Marrow CERNER Final Report ? [facility] ? Provider: ?? WILMA HEARD Pt. Name: ?? DELTA EVELYN I ?M ? Acc #: [id number] ? Pt. ? Col Date: ?? 4 [...] trabecular bone and h ematopoietic tissue in perl developer arrangement. The bone ? marrow is [...] specime n, and lymphocytes within the ? [facility] ? Provider: ?? WILMA HEARD Pt. Name: ?? EVELYN SORENSON I ?M ? Acc #: ?[id number] ? Pt. ? Col Date: ?? 4 [...] controls. These ? IHC studies provide t he pathologist with adjunctive diagnostic information. ? Antibody [...] 11/15/13 Verified by: ? Gopal ESCALANTE, Jazmin L. ? (Electronic Si gnature) ? The attending [...] cells that likely correspond to the ? [facility] ? Provider: ?? WILMA HEARD Pt. Name: ?? EVELYN SORENSON I ?M ? Acc #: ?[id number] ? Pt. ? Col Date: ?? 4 ? /Sex: ?1950,(63 years),Male ? Rec Date: ?? 11/12/2013 ? LOC: ?[facility] ? cells within the lymp hoid aggregate. These cells are negative for cyclin D1 ? by immunohistochemical staining. Flow cytometry analysis performed at ? Count Includes [facility] ? HEMATOPATHOLOGY ? Care on the previousl y diagnosed orbital lesion identified a CD5-, kappa- ? restricted immunophen otype (see [id number]), making it unlikely that the ? marrow and orbital pr ocesses are clonally related. The significance of this ? marrow finding is not known. It may represent the ??marrow manifestation of ? a dro-ING-okhw monoclonal B-cell lymphocytosis, and correlation with ? [...] MD PATHOLOGY/CYTOLOGY ORDERABLE S Performing Organization Address City/[facility]/ZIP Code Phon e Number [address] CERNER MILLENNIUM Immunophenotyping Flow Cytometry (11/12/2013 9:10 AM EDT) Component Value Ref Test Analysis Performed At [facility] gist Range Method Time Signature Type of Specimen Bone Marrow CERNER MILLENNIUM Panel Requested Lymphoma CERNER Panel MILLENNIUM Immunophenotyping See Comment CERNER Flow MILLENNIUM Comment: When completed by the Pathologist, the F low Cytometry Report ([id number]) will display under the Hematopathology Repor ts result section in eDH. Specimen Anatomical Collection Method Collection Time Receive d Time (Source) Location / / Volume Laterality Body fluid 11/12/2013 9:10 AM 4 3:20 specimen EDT PM EDT (specimen) Resulting Agency Comment Spec In Lab Wilma Heard MD HEMATOLOGY ORDERABLES Performing Organization Address City/[facility]/ZIP Code Phon e Number [address] CERNER MILLENNIUM Iron Stain, Bone Marrow (11/12/2013 9:10 AM EDT) [facility] gist Method Time Signature Iron Stain BM See Comment SOY MILLENNIUM Comment: See Bone Marrow Report [id number] under Hematopathology Reports. Specimen Anatomical Collection Method Collection Time Receive d Time (Source) Location / / Volume Laterality Bone marrow 11/12/2013 9:10 AM 4 9:58 specimen EDT AM EDT (specimen) Resulting Agency Comment Spec In Lab Wilma Heard MD HEMATOLOGY ORDERABLES Performing Organization Address City/State/[place] [address] CERNER MILLENNIUM Differential, Automated [...] yielding IG's will be scanned manually for concchuck dancamilo. If this scan disagrees with the automated IG or if promyelocytes are not ed, a manual differential will be performed. Brittanie Gran Abs 0.01 0.00 - 0.05 x10(3)/mcL CER NER MILLENNIUM Specimen Anatomical Collection Method Collection Time Receive d Time (Source) Location / / Volume Laterality Blood specimen 11/12/2013 8:45 AM 04/22/2 014 9:59 (specimen) EDT AM EDT Wilma Heard MD HEMATOLOGY ORDERABLES Performing Organization Address City/[facility]/ZIP Code Phon e Number [address] CERNER MILLENNIUM CBC (with Diff) [...] Heard MD HEMATOLOGY ORDERABLES Performing Organization Address City/[facility]/ZIP Code Phon e Number [address] [facility] documented in this encounter Visit Diagnoses Diagnosis MALT lymphoma Marginal zone lymphoma, unspecified site , extranodal and solid organ sites documented in this encounter Administered Medications Inactive Administered [...] injection (CANCELED) 0903 (Given - Provider: Sharon Palomino, HERO) 25-100 mcg, Intravenous, EVERY 5 MIN PRN , Starting Mon11/12/13 at 0827, Until Mon11/12/13 at 1321, Pain, Hold for respiratory rate less than 8 breaths per minute. (maximum dose 200 mcg) , Intra-Operative (Intra-Procedure), Routine iohexol (OMNIPAQUE) 350 mg iodine/mL injection 17,500 mg (COMPLE STANFORD) 1246 (Given - Provider: Jordi Reed) 50 mL = 17,500 mg, Oral, ONCE PRN, 1 dos e, Starting 11/12/13 at 1246, Until 11/12/13 at 1246, Per Protocol, Routine iohexol (OMNIPAQUE) 350 mg iodine/mL injection 38,500 mg (COMPLE STANFORD) 1246 (Given - Provider: Jordi Reed) 110 mL = 38,500 mg, Intravenous, ONCE NC N, 1 dose, Starting 11/12/13 at 1246, Until 11/12/13 at 1246, Per Protocol, Routine midazolam (PF) (VERSED) 1 mg/mL injection 0.5-2 mg (CANCELED) 0903 (Given - Provider: Sharon Palomino, RN)0906 (Given - Provider: Sharon Palomino, HERO) 0.5-2 mg, Intravenous, EVERY 5 MIN PRN, Starting 11/12/13 at 0827, Until 11/12/13 at 1321, Sleep, Anxiety, Hold for delirium/agitation. (Maximum dose 5 mg)., Intra-Operative (Intra-Procedure), Routine documented in this encounter Care Teams Plant Specialist Relationship Specialty Start Date End Date Elizabeth Sanders MD PCP - General 10/18/[address] [place] [address] documented as of this encounter
--- OUTSIDE RECORDS SUMMARY | 2022-06-17 00:51 | XMS_ITS | Encounter Summary ---
:1950 Author Organization [facility] Address [address] [place] [address] Care Team Providers Name Role Phone Elizabeth Sanders MD Primary Care Provider Encounter Details Date Type Department Care Team Description 01/20/2022 Lab Requisition [facility] Outr Resulting Lab, Pathology & Laboratory Provider [facility] [address] [place] [address] Social History Tobacco Use Types Packs/Day Years Used Date Smoking Tobacco: Former Smokeless Tobacco: Never Alcohol Use Standard Drinks/Week Comments No 0 (1 standard drink = 0.6 oz pure alcoho l) Sex Assigned at Date Recorded Not on file documented as of this encounter Plan of Treatment Not on filedocumented as of this encounter Procedures Procedure Name Priority Date/Time Associated Comments Diagnosis PSA TOTAL, Routine 01/20/2022 10:35 Results for this DIAGNOSTIC EDT procedure are i n the results section. documented in this encounter Results PSA TOTAL, DIAGNOSTIC (01/20/2022 10:35 EDT) P athologist Signature PSA 0.9 <=6.5 ng/mL 01/20/2022 [facility] 19:45 EDT [facility] Specimen Anatomical Collection Method Collection Time Receive d Time (Source) Location / / Volume Laterality Blood VENOUS BLOOD / 01/20/2022 10:35 2 Unknown EDT 18:05 EDT Narrative [facility] - 01/20/2022 19:45 EDT NOTE: Serum PSA concentration should not be in terpreted as absolute evidence for the presence or absence of malignant disease. Assayed on Siemens ADVIA Centaur XPT usi ng chemiluminescent technology.??Values obtained by using different assay methods cannot be used interchangeably. Provider Outr Resulting Lab CHEMISTRY & BLOOD GAS MARIA LUISA REEVES Performing Organization Address City/State/ZIP Code Phon e Number [facility] [address] [place] [address] SERVICES documented in this encounter Visit Diagnoses Not on filedocumented in this encounter Care Teams Product Strategy Director Relationship Specialty Start Date End Date Elizabeth Sanders MD PCP - General 09/03/[address] [place] [address] [address] [place] [phone] documented as of this encounter
--- OUTSIDE RECORDS SUMMARY | 2022-06-17 00:51 | XMS_ITS | Encounter Summary ---
:[address] 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
--- OUTSIDE RECORDS SUMMARY | 2022-06-17 00:52 | XMS_ITS | Encounter Summary ---
:1950 Author Organization [facility] Address [address] [place] [address] Care Team Providers Name Role Phone Lenin Pichardo MD Primary Care Provider Reason for Visit Reason Comments Pre-op Exam Encounter Details Date Type Department Care Team Description 08/29/2013 Orders Only [facility] Jerry Gonzales RN Orbital mass (Primary ENT- Main [place] [address] [facility] Dx) [address] [place] [address] [place], [place] [id number] Social History Tobacco Use Types Packs/Day Years Used Date Smoking Tobacco: Never Assessed Sex Assigned at Date Recorded Not on file documented as of this encounter Progress Notes Jerry Gonzales RN - 08/29/[address] Dewey ct ordered for appt next week. documented in this encounter Plan of Treatment Not on filedocumented as of this encounter Procedures Procedure Name Priority Date/Time Associated Diagnosis Comme nts CT SINUS COMPLETE 09/04/2013 13:54 Result s for this WO CONTRAST EST procedure are i n the results section. documented in this encounter Results CT SINUS COMPLETE WO CONTRAST (09/04/2013 13:54 EST) Anatomical Region Laterality Modality Other Specimen Anatomical Collection Method Collection Time Receive d Time (Source) Location / / Volume Laterality 09/04/2013 13:54 09/04/2013 EST 14:41 EST Narrative 09/04/2013 14:[address] SINUS COMPLETE WO CONTRAST ??09/04/2013 1:54 PM Signs and Symptoms/Comments: ??376.89-Ot her orbital [id number]; orbital mass Prior exam: None Technique: Axial plane without intraveno us contrast. Sagittal and coronal reformats. Soft tissue and bone windows. Findings: Right-sided proptosis is prese nt. There is a large irregularly shaped soft tissue mass of i ntermediate density which appears to be predominantly extraconal a lthough a portion of it does extend into the intraconal compartment. The mass is located in the superomedial aspect of the right orbit a nd extends from the level of the globe posteriorly to the orbital ape x. The mass is contiguous with the superior oblique muscle as well as the superior aspect of the right medial rectus muscle and the i ntraconal extension is contiguous with the optic nerve/sheath c omplex. Subtle remodeling and expansion of the bony orbit. There are n o calcifications related to this mass which is of relatively homogen eous soft tissue density. The mass measures approximately 4 cm AP, 14 mm craniocaudal and approximately 2 cm transverse. No obviou s intracranial extension. No lacrimal gland masses are seen. Globe s appear intact. Tiny rounded focus of mucosal thickening versus a tiny retention cyst or polyp in the anterior-inferior right maxillary sinus. Numerous retention cysts versus polyps in the lef t maxillary sinus. Mucosal thickening in left anterior ethmoid air cells. Mild mucosal thickening in the inferior left frontal sinus and region of the left frontal recess. The maxillary sinus osti a and ethmoid infundibuli are patent. Minimal mucosal thickening with a calcification which may related to chronic inflammatory disease is seen along the lateral aspect of the left sphenoid sinus. Sphen oid sinus ostia and sphenoethmoidal recesses are patent. Mild dextro deviation of the inferior na lizz septum with a small adjacent right-sided nasoseptal spur. Nick th sides of the nasal cavity including the middle meatus regions are aerated. Keros type III olfactory fossa noted. Cribriform plates are symmetric. Bony dehiscence of the bony plate separa ting the horizontal cavernous segment of the left internal carotid art jarocho from the adjacent left sphenoid sinus. There is also bony dehis cence of the bony plate the anterior genu of the intr acavernous carotid arteries from the adjacent sphenoid sinuses bilat erally. No abnormality is seen within the left o rbit. Incomplete development/pneumatization of the inferior mastoid bones. The developed mastoid air cells and the tympanic cavities are aerated. Impression: 1. Right-sided proptosis with a large ir regularly shaped homogeneous soft tissue mass within the right orbit with both extraconal and intraconal involvement with subtle assoc iated bony remodeling/expansion of the bony right o rbit. 2. Differential considerations regarding this lesion would include but are not limited to orbital pseudotum or, lymphoma, leukemia or other lymphoproliferative/myeloprolifera tive disorder in addition to a mixed intraconal/extraconal hemangioma . Metastatic disease is not felt to be likely due to the subtle bony remodeling/expansion. An orbital varix is felt to be unlikely. 3. Followup contrast-enhanced CT or dedi cated orbital MRI without and with gadolinium enhancement is recommend ed for further evaluation. 4. Findings and recommended followup wer e discussed with Dr. Dewey at approximately 2:30 PM on 07/06. Procedure Note 09/04/2013 CT SINUS COMPLETE WO CONTRAST 09/04/2013 1:54 PM Signs and Symptoms/Comments: 376.89-Othe r orbital [id number]; orbital mass Prior exam: None Technique: Axial plane without intraveno us contrast. Sagittal and coronal reformats. Soft tissue and bone windows. Findings: Right-sided proptosis is prese nt. There is a large irregularly shaped soft tissue mass of i ntermediate density which appears to be predominantly extraconal a lthough a portion of it does extend into the intraconal compartment. The mass is located in the superomedial aspect of the right orbit a nd extends from the level of the globe posteriorly to the orbital ape x. The mass is contiguous with the superior oblique muscle as well as the superior aspect of the right medial rectus muscle and the i ntraconal extension is contiguous with the optic nerve/sheath c omplex. Subtle remodeling and expansion of the bony orbit. There are n o calcifications related to this mass which is of relatively homogen eous soft tissue density. The mass measures approximately 4 cm AP, 14 mm craniocaudal and approximately 2 cm transverse. No obviou s intracranial extension. No lacrimal gland masses are seen. Globe s appear intact. Tiny rounded focus of mucosal thickening versus a tiny retention cyst or polyp in the anterior-inferior right maxillary sinus. Numerous retention cysts versus polyps in the lef t maxillary sinus. Mucosal thickening in left anterior ethmoid air cells. Mild mucosal thickening in the inferior left frontal sinus and region of the left frontal recess. The maxillary sinus osti a and ethmoid infundibuli are patent. Minimal mucosal thickening with a calcification which may related to chronic inflammatory disease is seen along the lateral aspect of the left sphenoid sinus. Sphen oid sinus ostia and sphenoethmoidal recesses are patent. Mild dextro deviation of the inferior na lizz septum with a small adjacent right-sided nasoseptal spur. Nick th sides of the nasal cavity including the middle meatus regions are aerated. Keros type III olfactory fossa noted. Cribriform plates are symmetric. Bony dehiscence of the bony plate separa ting the horizontal cavernous segment of the left internal carotid art jarocho from the adjacent left sphenoid sinus. There is also bony dehis cence of the bony plate the anterior genu of the intr acavernous carotid arteries from the adjacent sphenoid sinuses bilat erally. No abnormality is seen within the left o rbit. Incomplete development/pneumatization of the inferior mastoid bones. The developed mastoid air cells and the tympanic cavities are aerated. Impression: 1. Right-sided proptosis with a large ir regularly shaped homogeneous soft tissue mass within the right orbit with both extraconal and intraconal involvement with subtle assoc iated bony remodeling/expansion of the bony right o rbit. 2. Differential considerations regarding this lesion would include but are not limited to orbital pseudotum or, lymphoma, leukemia or other lymphoproliferative/myeloprolifera tive disorder in addition to a mixed intraconal/extraconal hemangioma . Metastatic disease is not felt to be likely due to the subtle bony remodeling/expansion. An orbital varix is felt to be unlikely. 3. Followup contrast-enhanced CT or dedi cated orbital MRI without and with gadolinium enhancement is recommend ed for further evaluation. 4. Findings and recommended followup wer e discussed with Dr. Dewey at approximately 2:30 PM on 07/06. 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
--- OUTSIDE RECORDS SUMMARY | 2022-06-17 00:52 | XMS_ITS | Encounter Summary ---
:1950 Author Organization [facility] Address [address] [place] [address] Care Team Providers Name Role Phone Elizabeth Sanders MD Primary Care Provider Encounter Details Date Type Department Care Team Description 09/04/2013 Hospital Encounter [facility] MD [place] [address] [facility] [address] [place] [address] [place], [place] [phone] Social History Tobacco Use Types Packs/Day Years Used Date Smoking Tobacco: Former Smokeless Tobacco: Never Alcohol Use Standard Drinks/Week Comments No 0 (1 standard drink = 0.6 oz pure alcoho l) Sex Assigned at Date Recorded Not on file documented as of this encounter Discharge Diagnoses Diagnosis 376.89 ORBITAL DISORDERS NEC[ICD-9-CM] documented in this encounter Medications at Time of Discharge Medication Sig Dispensed Refills Start Date End Date hydrochlorothiazide Take 25 mg by 0 (HYDRODIURIL) 25 mg tablet mouth daily. 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
--- OUTSIDE RECORDS SUMMARY | 2022-06-17 00:52 | XMS_ITS | Encounter Summary ---
:1950 Author Organization [facility] Address [address] [place] [address] Care Team Providers Name Role Phone Lenin Pichardo MD Primary Care Provider Elizabeth Sanders MD Primary Care Provider Encounter Details Date Type Department Care Team Description 04/08/2002 Hospital Encounter [facility] Lenin Pichardo MD [address] [address] [place] [address] (Wo rk) Social History Tobacco Use Types [...] Procedure Name Priority Date/Time Associated Comments Diagnosis HOLD Routine 04/08/2002 9:16 Results for this EDT procedure are i n the results section. COMPLETE BLOOD COUNT Routine 04/08/2002 9:16 Resu lts for this EDT procedure are i n the results section. LIPID PROFILE Routine 04/08/2002 9:16 Results for this (INCLUDES CHOLESTEROL, EDT proce dure are in TRIGLYCERIDES, HDL, the resu lts LDL) section. COMPREHENSIVE Routine 04/08/2002 9:16 Results for this METABOLIC PANEL (CMP) EDT proced ure are in the results section. URINALYSIS WITH Routine 04/08/2002 9:03 Results f or this MICROSCOPIC IF EDT procedure are in POSITIVE the results section. UA REFLEX Routine 04/08/2002 9:03 Results for this EDT procedure are i n the results section. documented in this encounter Results LIPID PROFILE (INCLUDES CHOLESTEROL, TRIGLYCERIDES, HDL, LDL) (04/08/2002 9:16 EDT) athologist Signature Cholesterol 220 mg/dl [facility] Comment: Desirable:<200 Borderline:200-239 High Risk:>[id number] Triglycerides 70 35 - 160 mg/dl [facility] HDL 56 mg/dl [facility] Comment: Highly Desirable:>60 Desirable:35-60 High Risk:<35 LDL, Calculated 150 mg/dl [facility] Comment: Desirable:<130 Borderline:130-159 High Risk:>xl=[id number] Chol/HDL Ratio 3.9 [facility] Specimen Anatomical Collection Method Collection Time Receive d Time (Source) Location / / Volume Laterality 04/08/2002 9:16 04/08/2002 9 :18 EDT EDT Lenin Pichardo MD CHEMISTRY & BLOOD GAS ORDERA BLES Performing Organization Address City/State/ZIP Code Phon e Number [facility] [address] [place] [address] SERVICES [facility] [address] [place] [address] HOLD (04/08/2002 9:16 EDT) athologist Signature Hold Hold for [facility] testing. Specimen will be held for 30 days. Specimen Anatomical Collection Method Collection Time Receive d Time (Source) Location / / Volume Laterality 04/08/2002 9:16 04/08/2002 9 :18 EDT EDT Lenin Pichardo MD CHEMISTRY & BLOOD GAS ORDERA BLES Performing Organization Address City/[facility]/ZIP [facility] [place], [place] Phon e Number [facility] [address] [place] [address] SERVICES [facility] [address] [place] [address] COMPREHENSIVE METABOLIC PANEL (04/08/2002 9:16 EDT) athologist Signature Potassium 4.2 3.5 - 5.0 [facility] m[facility]/L [facility] Sodium 141 136 - 145 [facility] m[facility]/L [facility] Chloride 102 96 - 110 [facility] m[facility]/L [facility] CO2 30 24 - 30 [facility] mEq/L [facility] Total Alkaline 77 38 - 126 [facility] Phosphatase U/L LAB Bilirubin, Total 0.6 0.2 - 1.3 [facility] mg/dl LAB AST 35 8 - 50 U/L [facility] ALT 46 15 - 75 [facility] U/L [facility] Albumin 4.3 3.0 - 5.5 [facility] g/dl LAB Total Protein 7.8 6.0 - 8.5 [facility] g/dl LAB Creatinine 1.0 0.7 - 1.5 [facility] mg/dl LAB BUN 12 10 - 26 [facility] mg/dl LAB Calcium 9.2 8.5 - 10.5 [facility] mg/dl LAB Calculated 9.3 8.5 - 10.5 [facility] Calcium mg/dl LAB Glucose, Serum 107 70 - 110 [facility] mg/dl LAB Albumin/Globulin 1.2 [facility] Ratio LAB Specimen Anatomical Collection Method Collection Time Receive d Time (Source) Location / / Volume Laterality 04/08/2002 9:16 04/08/2002 9 :18 EDT EDT Lenin Pichardo MD CHEMISTRY & BLOOD GAS ORDERA BLES Performing Organization Address City/State/ZIP Code Phon e Number [facility] [address] [place] [address] SERVICES [facility] [address] [place] [address] HEMAGRAM (04/08/2002 9:16 EDT) P athologist Signature WBC 4.86 4.0 - 10.4 [facility] RBC 4.95 4.36 - 5.78 [facility]/c[facility] Hemoglobin 15.4 13.8 - 17.3 [facility] gm/dl LAB HCT 45.3 39.5 - 50.2 [facility] % LAB MCV 92 81 - 95 fl [facility] MCH 31.2 27.6 - 33.0 [facility] pg LAB MCHC 34.1 32.8 - 36.4 [facility] gm/dl LAB PLT 243 141 - 320 [facility]/cmm [facility] RDW-CV 12.6 11.8 - 14.1 [facility] Specimen Anatomical Collection Method Collection Time Receive d Time (Source) Location / / Volume Laterality 04/08/2002 9:16 04/08/2002 9 :18 EDT EDT Lenin Pichardo MD HEMATOLOGY & PF4 ORDERABLES Performing Organization Address City/State/ZIP [facility] [place] [place] Phon e Number [facility] [address] [place] [address] SERVICES [facility] [address] [place] [address] UA REFLEX (04/08/2002 9:03 EDT) Patholo gist Method Time Signature UA Billing Microscopic not [facility] Specimen Anatomical Collection Method Collection Time Receive d Time (Source) Location / / Volume Laterality 04/08/2002 9:03 04/08/2002 EDT 10:23 EDT Lenin Pichardo MD URINALYSIS ORDERABLES Performing Organization Address [facility] Phon e Number [facility] [address] [place] [address] SERVICES [facility] [address] [place] [address] URINALYSIS (04/08/2002 9:03 EDT) P athologist Signature Color, UA Yellow [facility] Clarity, UA Clear [facility] Glucose, UA Norm NORM [facility] Bilirubin, UA Neg NEG [facility] Ketones, UA Neg NEG [facility] Specific 1.010 1.005 - [facility] [place], Urine 1.02 LAB Blood, UA Neg NEG [facility] pH, UA 6.5 5.0 - 9.0 [facility] Protein, UA Neg NEG [facility] Urobilinogen, Norm NORM mg/dL [facility] Nitrite, UA Neg NEG [facility] Leuk Esterase Neg NEG [facility] Specimen Anatomical Collection Method Collection Time Receive d Time (Source) Location / / Volume Laterality 04/08/2002 9:03 04/08/2002 EDT 10:23 EDT Lenin Pichardo MD URINALYSIS ORDERABLES Performing Organization Address City/[facility]/ZIP [facility] [place] [place] Phon e Number [facility] [address] [place] [address] [facility] [address] [place] [address] documented in this encounter Visit Diagnoses Not on filedocumented in this encounter 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
--- OUTSIDE RECORDS SUMMARY | 2022-06-17 00:52 | XMS_ITS | Encounter Summary ---
:[address] [facility] Address [address] [place] [address] Care Team Providers Name Role Phone Elizabeth Sanders MD Primary Care Provider Reason for Visit Reason Comments Mass orbital Encounter Details Date Type Department Care Team Description 09/04/2013 Office Visit [facility] David Dewey l mass (Primary ENT- [facility] MD Bogdan Dx) [address] [facility] [address] [place] [address] [place] [phone] Social History Tobacco Use Types Packs/Day Years Used Date Smoking Tobacco: Former Smokeless Tobacco: Never Alcohol Use Standard Drinks/Week Comments No 0 (1 standard drink = 0.6 oz pure alcoho l) Sex Assigned at Date Recorded Not on file documented as of this encounter Last Filed Vital Signs Vital Sign Reading Time Taken Comments Blood Pressure 137/78 09/04/2013 1545 EST Pulse - - Temperature 35.6 ??C (96 ??F) 09/04/2013 1545 EST Respiratory Rate - - Oxygen Saturation - - Inhaled Oxygen Concentration - - Weight - - Height - - Body Mass Index - - documented in this encounter Discharge Diagnoses Diagnosis 376.89 ORBITAL DISORDERS NEC[ICD-9-CM] documented in this encounter Discharge Disposition Disposition Code Departure Means Destination Auto Discharge documented in this encounter Progress Notes Carla Luevano MD - 09/04/2013 1639 EST Images from the original note were not included. Subjective: Patient ID: Shadi Falcon Jr. is an 63 y.o. male. Chief Complaint Patient presents with ??? Mass orbital Vandana Mantilla has requested that I see Shadi Falcon Jr. in consultation regarding Right orbital mass. HPI Shadi Falcon Jr. is a very pleasant 63 yo M who presents for evaluation of a right orbital mass. He developed progressive right upper eyelid edema, drooping, and double vision over the past 3-4 years. He attributed this to a spider bite on his right cheek which caused significant right facial and periorbital edema. He had flashing lights in the right eye several years ago and was worked up for TIA which was negative. 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 Over the past 2-3 years he has noted increasing right retro-orbital pressure. He has had to tilt his eye glasses sideways over the pastyear due to diplopia despite having his glasses fitted with a prism. He is most bothered by the factthat his upper eyelid blocks his vision and forces him to lift his eyebrow which gives him the appearance of being suspicious during conversations. He was evaluated by Dr. Mantilla who noted significant proptosis and obtained an MRI which showed a large right orbital mass located medially and superiorly (d one at [facility]). He is referred for transnasal right orbital mass biopsy. There is no problem list on file for this patient. Past Medical History Diagnosis Date ??? Hypertension [...] Outpatient Prescriptions Marked as Taking for the 09/04/13 encounter (Office Visit) with David Dewey MD Medication Sig Dispense Refill ??? hydrochlorothiazide (HYDRODIURIL) 25 mg tablet Take 25 mg by mouth daily. No Facility-Administered Medications for the 09/04/13 encounter (Office Visit) with David Dewey MD. No Known Allergies Review of Systems Constitutional: Negative for fever, chills, weight loss and malaise/fatigue. HENT: Negative for hearing loss, ear pain, congestion, sore throat and tinnitus. Eyes: Positive for blurred vision, double vision and photophobia. Respiratory: Negative for cough, hemoptysis, shortness of breath and wheezing. Cardiovascular: Negative for chest pain, palpitations, claudication and leg swelling. Gastrointestinal: Negative for heartburn. Musculoskeletal: Negative for myalgias and joint pain. Skin: Negative for rash. Neurological: Negative for sensory change, focal weakness and headaches. Endo/Heme/Allergies: Negative for environmental allergies. Does not bruise/bleed easily. - See HPI Objective: BP 137/78 Temp(Src) 35.6 ??C (96 ??F) Physical Exam Department of Otolaryngology PHYSICAL EXAMINATION CONSTITUTIONAL: VITAL SIGNS: Reviewed (3) BP 137/78 Temp(Src) 35.6 ??C (96 ??F) APPEARANCE: The patient appears alert, cooperative, and comfortable. ABILITY TO COMMUNICATE / VOICE: Normal HEAD AND FACE: INSPECTION: Right upper eyelid edema and ptosis . PALPATION: There are no masses or sinus tenderness. SALIVARY GLANDS: Submandibular and Parotid glands are normal bilaterally FACIAL STRENGTH: Intact and symmetrical bilaterally EXTERNAL EAR & NOSE: No external ear or nose deformity noted EYES: EYES: Right - globe is proptotic and displaced inferiorly, EOMI bilaterally EARS, NOSE, MOUTH AND THROAT: OTOSCOPY: Right external auditory canal: patent and non-inflamed Left external auditory canal: patent and non-inflamed Right tympanic membrane: intact and normally mobile without retraction, perforation or effusion Left tympanic membrane: intact and normally mobile without retraction, perforation or effusion WHISPER/TUNING FORK: Not assessed NOSE: see nasal endoscopy report LIPS, TEETH & GUMS: normal for age ORAL CAVITY & OROPHARYNX: normal HYPOPHARYNX & PHARYNGEAL DIALLO: Not examined LARYNX: Not examined NASOPHARYNX: Not examined NECK: GENERAL: Supple, no asymmetry or crepitus, trachea midline THYROID: Normal LYMPHATIC: CERVICAL LYMPH NODES: No pathologic cervical lymphadenopathy noted RESPIRATORY: LUNGS: Not examined CARDIOVASCULAR: CARDIOVASCULAR: Not examined NEUROLOGIC: NEUROLOGIC: Normal mood and affect Endoscopy Procedure Note Pre-procedure Diagnosis: Right orbital mass Post-procedure Diagnosis: normal Indications: Preoperative evaluation Anesthesia: Cophenylcaine Endoscopy Type: Nasal endoscopy using a 0 degree rigid telescope Procedure Details: With the patient sitting upright in the examining chair informed consent was obtained. The right nostril was topically anesthetized with spray. After waiting an appropriate period of time for anesthesia/ vasoconstriction to become effective (if this was applicable), the scope was passed into the rightnostril and the nasal cavities was examined. Condition: Patient tolerated procedure well and left the office in a stable condition. Complications: None Findings: Right Nasal Cavity: Nares normal. Mild Septal deviation. Mucosa normal. No drainage or sinus tenderness. Radiology Report: I personally reviewed the images and agree Findings: Right-sided proptosis is present. There is a large irregularly shaped soft tissue mass of intermediate density which appears to be predominantly extraconal although a portion of it does extend into the intraconal compartment. The mass is located in the superomedial aspect of the right orbit and extends from the level of the globe posteriorly to the orbital apex. The mass is contiguous with the superior oblique muscle as well as the superior aspect of the right medial rectus muscle and the intraconal extension is contiguous with the optic nerve/sheath complex. Subtle remodeling and expansion of the bony orbit. There are no calcifications related to this mass which is of relatively homogeneous soft tissue density. The mass measures approximately 4 cm AP, 14 mm craniocaudal and approximately 2 cm transverse. No obvious intracranial extension. No lacrimal gland masses are seen. Globes appear intact. Tiny rounded focus of mucosal thickening versus a tiny retention cyst or polyp in the anter ior-inferior right maxillary sinus. Numerous retention cysts versus polyps in the left maxillary sinus. Mucosal thickening in left anterior ethmoid air cells. Mild mucosal thickening in the inferior left frontal sinus and region of the left frontal recess. The maxillary sinus ostia and ethmoid infundibuli are patent. Minimal mucosal thickening with a calcification which may related to chronic inflammatory disease is seen along the lateral aspect of the left sphenoid sinus. Sphenoid sinus ostia and sphenoethmoidal recesses are patent. Mild dextro deviation of the inferior nasal septum with a small adjacent right- sided nasoseptal spur. Both sides of the nasal cavity including the middle meatus regions are aerated. Keros type III olfactory fossa noted. Cribriform plates are symmetric. Bony dehiscence of the bony plate the horizontal cavernous segment of the left internal carotid artery from the adjacent left sphenoid sinus. There is also bony dehiscence of the bony plate the anterior genu of the intracavernous carotid arteries from the adjacent sphenoid sinuses bilaterally. No abnormality is seen within the left orbit. Incomplete development/pneumatization of the inferior mastoid bones. The developed mastoid air cells and the tympanic cavities are aerated. Impression: 1. Right-sided proptosis with a large irregularly shaped homogeneous soft tissue mass within the right orbit with both extraconal and intraconal involvement with subtle associated bony remodeling/expansion of the bony right orbit. 2. Differential considerations regarding this lesion would include but are not limited to orbital pseudotumor, lymphoma, leukemia or other lymphoproliferative/myeloproliferative disorder in addition to a mixed intraconal/extraconal hemangioma. Metastatic disease is not felt to be likely due to the subtle bony remodeling/expansion. An orbital varix is felt to be unlikely. 3. Followup contrast-enhanced CT or dedicated orbital MRI without and with gadolinium enhancement is recommended for further evaluation. MRI from OSH Assessment: 1. Right orbital mass measuring 4 x 1.4x2 cm - Differential diagnoses include benign tumor (orbital pseudotumor, neurofibroma, hemangioma) vs malignancy (leukemia, lymphoma, rhabdomyoscarcoma, metastatic tumors). The orbital mass should be accessible via transnasal approach. The right anterior ethmoidartery is in close proximity (enters about mid tumor) and will need close attention if not prophylactic ligation. Plan: Shadi was seen today for mass. Diagnoses and associated orders for this visit: Orbital mass - Risks of surgery were reviewed including injury to the eye causing retro- orbital hematoma and lossof vision, CSF leak, meningitis, brain abscess, tearing, loss of smell, insufficient specimen. - Benefits include hopefully obtaining a tissue diagnosis, decompression of the orbit. - RTC 1 week post op CARLA LUEVANO MD Otolaryngology, Head and Neck Surgery 09/04/2013 16:59 Attestation statement: I saw and examined the patient with the resident/fellow. I agree with the findings and plan of care documented in the resident's/fellow's note. I supervised and performed the procedure as described above. David Dewey MD CC: Vandana Mantilla MD documented in this encounter Plan of Treatment Not on filedocumented as of this encounter Visit Diagnoses Diagnosis Orbital mass - Primary Other orbital disorder documented in this encounter Historical Medications This list may reflect changes made after this encounter. Medication Sig Dispensed Refills Start Date End Date hydrochlorothiazide Take 25 mg by 0 (HYDRODIURIL) 25 mg tablet mouth daily. added in this encounter Care Teams Branch Customer Service Representative Relationship Specialty Start Date End Date Elizabeth Sanders MD PCP - General 09/03/[address] [place] [address] [address] [place] [phone] documented as of this encounter
--- OUTSIDE RECORDS SUMMARY | 2022-06-17 00:52 | XMS_ITS | Encounter Summary ---
:1950 Author Organization [facility] Address [address] [place] [address] Care Team Providers Name Role Phone Elizabeth Sanders MD Primary Care Provider Encounter Details Date Type Department Care Team Description 09/24/2013 Hospital Encounter [facility] David Dewey Perioperative Services- MD Bogdan [facility] [address] [place], [place] [id number] Social History Tobacco Use Types Packs/Day [...] Body Mass Index 24.55 09/23/2013 0852 EST documented in this encounter Medications at Time of Discharge Medication Sig Dispensed Refills Start Date End Date acetaminophen (TYLENOL) Take 650 mg by 0 500 mg tablet mouth every 6 hours as needed for Pain. aspirin chewable 81 mg Take 81 mg by mouth 0 tablet daily. Docosahexanoic Take by mouth. 0 Acid-Eicosapent (FISH OIL) 120-180 mg capsule Multivitamins with Take 1 Tab by mouth 0 Minerals tablet daily. UNABLE TO FIND Atenolol combine 0 with HCTZ 100-25 mg, daily in AM . UNABLE TO FIND Med Name:vit C 500 0 mg . vit Take by mouth. 0 E-ebvnkkv-cefp-rutin-hb196 (BIOFLEX) 268-67-28-40 mg tablet Zinc 15 mg tablet Take by mouth. 0 azithromycin (ZITHROMAX) Take 2 tablets 6 Tab 0 014 09/28/2013 250 mg tablet (500mg) by mouth on day 1, followed by 1 tablet (250mg) by mouth once daily on days 2 through 5.. ondansetron (ZOFRAN-ODT) 4 Take 1 Tab by mouth 8 Tab 0 09/24/2013 09/30/2013 mg disintegrating tablet every 8 hours as needed for Nausea. oxyCODONE (ROXICODONE) 5 Take 1-2 Tabs by 20 Tab 0 09/2409/30/2013 mg immediate release mouth every 4 hours tablet as needed for Pain. Earliest Fill Date: 09/24/13 documented as of this encounter Ordered Prescriptions Prescription Sig Dispensed Refills Start Date End Date azithromycin (ZITHROMAX) Take 2 tablets 6 Tab 0 014 09/28/2013 250 mg tablet (500mg) by mouth on day 1, followed by 1 tablet (250mg) by mouth once daily on days 2 through 5.. ondansetron (ZOFRAN-ODT) 4 Take 1 Tab by mouth 8 Tab 0 09/24/2013 09/30/2013 mg disintegrating tablet every 8 hours as needed for Nausea. oxyCODONE (ROXICODONE) 5 Take 1-2 Tabs by 20 Tab 0 09/2409/30/2013 mg immediate release mouth every 4 hours tablet as needed for Pain. Earliest Fill Date: 09/24/13 documented in this encounter Discharge Disposition Disposition Code Departure Means Destination Home or Self Care documented in this encounter Progress Notes Deyanira Ahuja RN - 09/23/2013 0904 EST Evelyn Sorenson Jr. has been instructed as follows regarding medication administration for the dayof the scheduled procedure. Date of Surgery: 09/24/2013 Instructions for Taking Medications Day of Surgery Medication Last Dose Hold DOS Take DOS acetaminophen (TYLENOL) 500 mg tablet prn Yes aspirin chewable 81 mg tablet Yes Docosahexanoic Acid-Eicosapent (FISH OIL) 120-180 mg capsule X Multivitamins with Minerals tablet X UNABLE TO FIND (atenolol combining HCTZ) X UNABLE TO FIND X vit B-feztxxw-ndrg-rutin-hb196 (BIOFLEX) 956-19-48-40 mg tablet X Zinc 15 mg tablet X documented in this encounter H&P Notes POLE SHAVER, SCAN 2 - 09/27/2013 1040 EST Nancy Harmon MD - 09/24/2013 0723 EST The preoperative history and physical which was performed within 30 days of this procedure has been reviewed and the clinically appropriate elements of the physical examination havebeen repeated. There are no changes to the documented history and physical or if so such changes aredocumented below NANCY HARMON MD 09/24/2013 7:23 documented in this encounter Nursing Notes POLE SHAVER, SCAN 2 - 09/27/2013 1108 EST documented in this encounter OR Notes OR PreOp - POLE SHAVER, SCAN 2 - 09/30/2013 0911 EDT OR PreOp - POLE SHAVER, SCAN 2 - 09/27/2013 1040 EST OR Surgeon - David Dewey MD - 09/24/2013 1423 EST OPERATIVE REPORT SERVICE DATE: 09/24/2013 SURGEON: David Dewey MD TECHNOLOGY COACH: Nancy Harmon MD PREOPERATIVE DIAGNOSIS: Right orbital mass and diplopia. POSTOPERATIVE DIAGNOSIS: Right orbital mass and diplopia. PROCEDURE: Endoscopic image-guided sinus surgery, right total ethmoidectomy, frontal sinusotomy And excision biopsy of a right orbital mass with orbital decompression. ANESTHESIA: INDICATIONS: This is a 63-year-old male who presented with a 3 to 4 year history of progressive diplopia, upper eyelid dropping, proptosis and transient scatomas. He had undergone workup for a TIA and was told he was having ocular migraines. He was fitted with a prism for his glasses. He was eventually evaluated by Dr Mantilla who noted significant proptosis and obtained an MRI, which showed a large right orbital mass located medially superiorly. He was referred for a transnasal biopsy of the right orbital mass. NARRATIVE: The patient was identified in the preoperative hold area where the surgical site was marked. He was transferred to the operating table where a WHO casiano moment was held with the patient awake. General anesthesia was induced using an oral KEANU endotracheal tube. One gram of Ancef and 8 mg ofIV Decadron were administered perioperatively. The CT images were reviewed and uploaded into the i.Sec imaging system, which was used throughout the duration of the case, in order to verify the anatomy and location of the orbital mass, surgery along the skull base, and lamina and optic nerves and anterior ethmoid artery. The forehead star was applied to the patient's forehead. The BrainLAB was calibrated according to manager part's standards. The patient was positioned in reverse Trendelenburg. He was prepped and draped in the normal sterile fashion. Surgery was facilitated using a Storz 0-degree, 30-degree nasal endoscopes, Xomed 4 mm 0-degree microdebrider blade and 3.5 mm 90-degree microdebrider blade and the aitainmentBiothera surgical instrumentation set. Afrin-soaked neuro pledgets were placed in the right nasal cavity. A total of 17 mL of 1% lidocaine with 1:100,000 epinephrine was used throughout the duration of the case. Local was infiltrated sublabially along the nasal sill and nasofacial grooves bilaterally. Local was then infiltrated along the right sphenopalatine artery distribution, inferior aspect of the middle terminate, and anterior attachment of the middle turbinate. A total ethmoidectomy was then performed in order to expose the lamina papyracea. An uncinectomy was performed with a microdebrider blade backbiter and an Xtreme probe. Themaxillary ostium of the maxillary sinus was visualized and was verified to be patent. The ethmoid bulla was removed. The horizontal plate of the basal lamella was identified and followed posteriorly. The vertical plate of the basal lamella was penetrated marking entrance into the posterior ethmoid cells. The superior meatus was identified. The face of the sphenoid was identified and verified with the BrainLAB imaging system. A total ethmoidectomy was completed from posterior to anterior along the skull base and lamina papyracea laterally, which was again verified with the BrainLAB imaging system.Frontal Sinuotomy was performed to expose the superior extent of the Lamina relative to the position ofthe large orbital mass confirmed on Image guidance.The Agger Nasi cell was identified and excised completely with the 90 degree microdebrider and girraffe forceps. The mucosal membrane was then stripped off the lamina papyracea. The lamina was found to be bulging into the ethmoid sinuses. The bone of the lamina was delicately fractured with the Macoupin elevator and the bone was gently removed with theCottle elevator and straight Blakesley forceps. The location of the orbital mass was verified with the BrainLAB imaging system. A vertical incision was made with a sickle knife through the periorbita, releasing some periorbital fat. Dissection posterior to the orbital fat revealed a large fleshy tumor. A small portion of the tumor was sent for frozen section to verify tumor versus normal muscle, which was preliminarily positive for lymphoma infiltrating surrounding musculoskeletal muscle. Several biopsies of the right orbital mass were obtained with an angled giraffe forceps and were sent to pathology fresh for lymphoma workup. Additional tissue was sent by request of the pathology department. Theanterior ethmoid artery was clipped with 2 surgical clips to prevent hemorrhage and retroorbital hematoma. The artery was then cauterized with a monopolar cautery set at 15 de santiago. Hemostasis was achieved with neuro pledgets soaked in thrombin. Gelfoam soaked in thrombin was placed over the biopsy site. This marked the end of the procedure, and the patient was then awakened from general anesthesia andtransferred to PACU in good stable condition. Dr David Dewey was present and actively participated in the care of the patient. FLUIDS: 800 mL lactated Ringer's. URINE OUTPUT: Not recorded. EBL: 25 mL. RETAINED MATERIALS: Gelfoam soaked in thrombin. SPECIMENS: Right orbital mass biopsy for frozen and fresh for lymphoma workup. COMPLICATIONS: None. CONDITION: Stable. DISPO: PACU. Unless otherwise noted, there were no complications, no blood loss, no cultures obtained, no specimens removed, and no drains retained. David Dewey MD 11 43 AM / Nancy Harmon MD cn Confirmation: [id number] Dictation ID: [id number] cc: David Mantilla MD Anesthesia Procedure Notes - POLE SHAVER, SCAN 2 - 09/24/2013 1152 EST Anesthesia Preprocedure Evaluation - POLE SHAVER, SCAN 2 - 09/24/2013 0728 EST documented in this encounter Miscellaneous Notes Anesthesia Post-Eval - Doug Moser MD - 09/24/2013 1519 EST Post Anesthesia Evaluation Note Date of Service: 09/24/2013 Evelyn Sorenson Jr., a 63 y.o. year old male has received General Anesthesia today. He has been evaluated, assessed and discharged from anesthesia care with stable cardiorespiratory function and alert mental status. The last set of recorded vital signs and pain rating were reviewed: Temp: 36.6 ??C (97.9 ??F) (09/24/13 1400), BP: 118/70 mmHg (09/24/13 1400), Resp: 20 (09/24/13 1400), SpO2: 98 % (09/24/13 1400),Numeric Pain Level (Scale 1-10): 0 Evelyn Sorenson Jr. participated in this evaluation unless otherwise noted. His pain, nausea and vomiting have been managed and his body temperature and fluid balance have been restored. Additional monitoring and assessment needs have been addressed. If present, any postoperative events are documented below. DOUG MOSER MD 09/24/2013 15:19 Brief Op Note - Nancy Harmon MD - 09/24/2013 1127 EST Otolaryngology, Head and Neck Surgery Brief Operative Note Surgeon : David Dewey MD Pacu Nurse : NANCY HARMON MD Preoperative Diagnosis : Right orbital mass, diplopia Postoperative Diagnosis:same Procedure : Endoscopic image guided sinus surgery Right total ethmoidectomy Biopsy of right orbital mass, orbital decompression Anesthesia :General Endotracheal Findings : Large right medial orbital mass frozen section consistent with lymphoma infiltrating muscle Fluids : IVF - 800 cc lactated ringer's solution Urine Output -Not Recorded EBL - 25 cc Retained Material / Drains : gelfoam soaked in thrombin Specimen(s) : Right orbital mass biopsy for frozen and fresh for lymphoma work up Complications :none Condition :stable Disposition : to PACU There is no problem list on file for this patient. NANCY HARMON MD documented in this encounter Plan of Treatment Not on filedocumented as of this encounter Procedures Procedure Name Priority Date/Time Associated Comments Diagnosis ECG REPORT - SCANNED 09/27/2013 10:40 EST SURGICAL PATHOLOGY Routine 09/24/2013 10:55 Resul ts for this EST procedure are i n the results section. SURGICAL PATHOLOGY Routine 09/24/2013 10:19 Resul ts for this EST procedure are i n the results section. TYPE AND SCREEN Routine 09/24/2013 7:30 Results f or this EST procedure are i n the results section. CYTOPATHOLOGY Routine 09/24/2013 0:00 Results for this EST procedure are i n the results section. CYTOGENETICS Routine 09/24/2013 0:00 Results for this EST procedure are i n the results section. FLOW CYTOMETRY Routine 09/24/2013 0:00 Results fo r this EST procedure are i n the results section. documented in this encounter Results ECG REPORT - SCANNED (09/27/2013 10:40 EST) Specimen (Source) Anatomical Collection Method Collection Time Re ceived Time Location / / Volume Laterality 09/27/2013 10:40 EST Narrative This result has an attachment that is no t available. Scan 2 Disposal Man PROCEDURE/MINOR SURGICAL ORD ERABLES SURGICAL PATHOLOGY (09/24/2013 10:55 EST) Component Value Ref Test Analysis Performed At [facility] Range Method Time Signature Pathology SURGICAL PATHOLOGY REPORT KAVON JUSTYN Report: Reports generated via electronic interface contain origina l data; DEBRA PAULINO however they are lacking the format of the original report. Caution should be taken when reading/interpreting unformatte d reports. Name: ? DELTA DALLAS, WILL FERN I ? Accession #: ? [id number] ? : ? 1950 (Age: 63) ??M ? Collect Date: ? 09/24/2013 ? Location: ? [facility] ? Receive Date: ? 09/24/2013 ? Provider: DOCTOR UNKNOWN MD Copy to: ? Comment: ? This order was create d erroneously. ??All charges for this order have been removed. ??See [id number] for report on this patient. ?? Document reviewed and electronically signed by: Daisy Kline for STAFF PATHOLOGIST Report ??Date: 09/24/2013 11:24 By the signature above, the attending physician certifies th at he/she has personally conducted a gross and/or microscopic examin ation of the described specimens and rendered or confirmed the above diagnosis. Specimen(s) Received: End of Report Specimen Anatomical Collection Method Collection Time Receive d Time (Source) Location / / Volume Laterality 09/24/2013 10:55 09/24/2013 EST 10:55 EST Provider Unknown MD PATHOLOGY ORDERABLES Performing Organization Address City/State/ZIP Code Phon e Number [facility] [address] [place] [address] SERVICES [facility] [address] [place] [address] SURGICAL PATHOLOGY (09/24/2013 10:19 EST) Component Value Ref Test Analysis Performed At [facility] Range Method Time Signature Pathology SURGICAL PATHOLOGY REPORT KAVON ALEJANDRA Report: Reports generated via electronic interface contain origina l data; DEBRA PAULINO however they are lacking the format of the original report. Caution should be taken when reading/interpreting unformatte d reports. Name: ? DELTA , WILL FENR I ? Accession #: ? [id number] ? : ? 1950 (Age: 63) ??M ? Collect Date: ? 09/24/2013 ? Location: ? [facility] ? Receive Date: ? 2013 ? Provider: DAVID DEWEY MD Copy to: ELIZABETH SANDERS MD ? 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 See comment. Comment: The findings in these biopsy specimens, clinically from her from a right orbital mass, are diagnostic of non- Hodgkin lymphoma of small B-lymphocyte lymphocytes, probably marginal zone lymph deepika. This interpretation is based on the findings of soft tissue densely infiltrated by small lymphocytes, many with plasmacytoid features, and plasma cells. By flow cytometric analysis ([facility] I [id number]), a kappa restricted, CD5 negative, CD10 negative population of B lymp hocytes was detected. In aggregate, thes e findings are diagnostic of non-Hodgkin lymphoma of small B lymphocytes with a differential diagnosi s that includes marginal zone lymphoma and lymphoplasmacytic lymphoma. Marginal zone lym phoma is favored. Dr. Mota 09/27/2013 10:29 AM Microscopic Description: Multiple sections (A, B, C) are reviewed and all show satinder lar features. The sections show soft tissue that is densely infiltrated by a c ell population consisting predominantly of small lymphocytes, many with plasmacytoid features. Many of the small lymphocyte s also have a moderate amount of pale cytoplasm. In addition, plasma cells are intermingled with a small lymph ocyte population. Dr. Mota 09/27/2013 10:31 AM Document reviewed and electronically signed by: CLAY MOTA MD Report ??Date: 09/27/2013 10:35 By the signature above, the attending physician certifies th at he/she has personally conducted a gross and/or microscopic examin ation of the described specimens and rendered or confirmed the above diagnosis. Specimen(s) Received: A. ?Right orbital mass biopsy B. ? Right orbital mass for lymphoma workup C. ? Right orbital mass fluid (not received in Surgical Pathology) D. ? Right orbital mass for lymphoma Clinical History: Right orbital mass; A. R/O muscle vs tumor Intraoperative Interpretation: ORBITAL MASS, RIGHT, BIOPSY (FSA1): - Monomorphic lymphoid cells infiltrating skeletal muscle. - Request more tissue for lymphoma workup. Dr. Ubaldo Mancera; 09/24/2013 -Results given and discussed with Dr. Dewey via phone-Dr. Ubaldo Mancera 09/24/2013 Gross Description: A. ?Received fresh la belled with proper patient identification (initials K, W) and right orbital mass m uscle vs tumor is a hernandez-red soft tissue (0.3 x 0.3 x 0.2 cm). ??Entirely submitted for frozen section as FSA1 w ith the interpretation as rendered above. ??The frozen section control is submitted in A1. B. ?Received fresh la belled with proper patient identification (initials K, W) and B. right orbital mass are multiple hernandez-pink soft ti ssue fragments measuring 0.5 x 0.5 x 0.4 cm in aggregate. Repre sentative tissue is placed in RPMI for flow cytometry. ??T ouch imprints are performed for hematopathology. The remaining tissue is fixed in formalin and the en tire specimen is submitted in B1. C. ?Received fresh la belled with proper patient identification (initials K, W) and D. right orbital mas s are eight pink-hernandez soft tissue ranging from 0.2 x 0.2 x 0.1 cm 2.4 x 0.3 x 0.3 cm. ??Repre sentative tissue is placed in RPMI for flow cytometry (one piece placed in same container as specim en B). ??Touch imprints are performed for hematopatholo gy. [place] tissue is placed in Hanks solution for cytogenetics. The rem aining tissue is fixed in formalin and the entire specimen is submitted in C1. Dr. Holder 09/25/2013 01:15 PM End of Report Specimen Anatomical Collection Method Collection Time Receive d Time (Source) Location / / Volume Laterality 09/24/2013 10:19 09/24/2013 EST 10:19 EST David Dewey MD PATHOLOGY ORDERABLES Performing Organization Address City/State/ZIP Code Phon e Number [facility] [address] [place] [address] SERVICES [facility] [address] [place] [address] TYPE AND SCREEN (09/24/2013 7:30 EST) P athologist Signature ABO A [facility] Rh Factor Positive [facility] Antibody Negative [facility] Comment: specimen expires 09/27/13 at 23:5 9 Specimen (Source) Anatomical Collection Method Collection Time Re ceived Time Location / / Volume Laterality 09/24/2013 7:30 EST Provider Unknown BLOOD BANK TESTS Performing Organization Address City/[facility]/ZIP [facility] Phon e Number [facility] [address] [facility] [address] [facility] FLOW CYTOMETRY (09/24/2013 0:00 EST) Component Value Ref Test Analysis Performed Pathologis t Range Method Time At Signature Pathology FLOW CYTOMETRY REPORT [facility] Reports generated via electronic interface contain original data; however they are lacking the format of the original report. Caution should be taken when reading/interpreting unformatte d reports. Name: ? DELTA JR EVELYN Toribio ? Accession #: ? [id number] : ? 1950 (Age: 63) ??M ?Collect Date: ? 09/24/2013 00:00 Location: ? [facility] ? Receive Date: ? 09/24/2013 14:00 Provider: ?DAVID DEWEY MD Copy to: ?ELIZABETH SANDERS MD ? FINAL IMMUNOPHENOTYPIC INTERPRETATION: ? Orbital mass, right, flow cytometric analysis: - ?Non-Hodgkin lymphoma of B-cell kappa light chain lineage. ??See comment. ? COMMENT: ? The results of flow cytometry are those of involvemen t by a lymphoproliferative disorder of B-cell lineage e xpressing kappa light chains. The immunophenotypic profile is non-specific; differential d iagnostic considerations include lymphoplasmacytic lymphom a and marginal zone lymphoma. Correlation of these findings with morph ologic and clinical data is essential; please refer to Surgical Pathology report [id number] for mor phologic details. ? Document reviewed and electronically signed by: ? CLAY MOTA MD Report Date: ??09/27/2013 10:33 By the signature above, the attending physician certifies th at he/she has personally conducted an evaluation of the described sp ecimen and rendered or confirmed the above diagnosis. CLINICAL HISTORY: The patient is a 63-year-old male with right orbital mass. DESCRIPTION: ? The specimen consists of orbital mass tissue fr om which a single cell suspension is prepared. ?? G ating is performed using CD45 fluorescence and side scatter. ??Cellular viability (assessed by propidium iodide exclusion) is excellent (96%) among ??the CD45 positive events. ??Expression of the following antigens is tested: CD2, CD3, CD4, CD5, CD7, CD8, CD10, CD 11b, CD11c, CD14, CD16, CD19, CD20, CD23, CD38, CD45, CD56, CD57, FMC-7, HLA-DR, kappa, lambda. This test was developed and its performance mandi acteristics determined by the Department of Pathology and Laboratory Medicine, [place], [place] ??It has not been cleared or approved by the U.S. Food and Drug Administration. ? There is a clonal population of B -lymphocytes accounting for 83% of the lymphocytes. ??The cells com prising this population are positive for CD19, CD20, FMC7, HLA-DR, and kappa ligh t chain, and they are negative for CD5, CD10, CD23. CD38, and lambda light chain. By light s catter criteria, the cells are similar in size to normal lymphocytes. End of Report ?? Specimen (Source) Anatomical Collection Method Collection Time Re ceived Time Location / / Volume Laterality 09/24/2013 09/24/2013 14:0 0 EST David Dewey MD PATHOLOGY ORDERABLES Performing Organization Address City/State/ZIP Code Phon e Number [facility] [address] [place] [address] SERVICES [facility] [address] [place] [address] CYTOGENETICS (09/24/2013 0:00 EST) Component Value Ref Test Analysis Performed At [facility] Range Method Time Signature Pathology CYTOGENETICS REPORT [facility] Report: DEBRA PAULINO Reports generated via electronic interface contain original data; however they are lacking the format of the original report. Caution should be taken when reading/interpreting unformatte d reports. Name: ? EVELYN SORENSON JR, I ? Accession #: ? [id number] : ? 1950 (Age: 63) ??M ?Collect Date: ? 09/24/2013 Location: ? [facility] ? Receive Date: ? 09/24/2013 Provider: ? DAVID DEWEY MD Copy to: ?ELIZABETH MOTA MD ? INTERPRETATION: No dividing cells for analysis. ??Credit issued. The sample may be suitable for interphase FISH analysis. ?? FISH can be added by calling the [facility] Cytogenetics Laboratory at . ? Document reviewed and electronically signed by: ? TINO ALMARAZ MD ? Report Date: ??09/27/2013 16:50 CLINICAL HISTORY: Right orbital mass ? [id number] ??Non-Hodgkin lympho ma, probably extrnodal marginal zone lymphoma SPECIMEN: Lymph Tissue TEST PERFORMED: G-banded Karyotype ordered but not completed ?? REPORT: None KARYOTYPE: No growth, no karyotyping possible. ?? End of Report Specimen (Source) Anatomical Location Collection Method / Collectio n Time Received Time / Laterality Volume 09/24/2013 09/24/2013 David Dewey MD PATHOLOGY ORDERABLES Performing Organization Address City/State/ZIP Code Phon e Number [facility] [address] [place] [address] SERVICES [facility] [address] [place] [address] CYTOPATHOLOGY (09/24/2013 0:00 EST) Component Value Ref Test Analysis Performed At [facility] Range Method Time Signature Pathology CYTOPATHOLOGY REPORT [facility] Report: DEBRA PAULINO Reports generated via electronic interface contain original data; however they are lacking the format of the original report. Caution should be taken when reading/interpreting unformatte d reports. Name: ? EVELYN SORENSON JR, I ? Accession #: ? [id number] : ? 1950 (Age: 63) ??M ?Collect Date: ? 09/24/2013 Location: ? [facility] ? Receive Date: ? 09/24/2013 Provider: ? DAVID DEWEY MD Copy to: ?ELIZABETH SANDERS MD ? CYTOLOGIC DIAGNOSIS: FLUID, RIGHT ORBIT, CYTOLOGIC EVALUATION: - Non-diagnostic. See comment. ? COMMENT: The cytospin and cell block material consist predominantly of blood. ??Please see the concurrent surgical specimen for tony gnostic information ([id number]). ??This case was reviewed at the intradepartmental consultation conf erence. Valerie SIEGEL 09/24/2013 02:44 PM Document reviewed and electronically signed by: ? JUAN MARCH MD Report Date: ??09/25/2013 16:16 By the signature above, the attending physician certifies th at he/she has personally conducted a gross and/or microscopic examin ation of the described specimens and rendered or confirmed the above diagnosis. Specimen Type: ? Miscellaneous Fluid, Orbital mass fluid Clinical History: ? Right orbital mass. ? Gross Description: ? 7ccs of cloudy red fluid were received and processed by park ctive cellular enhancement technique. ? End of Report Specimen (Source) Anatomical Collection Method Collection Time Re ceived Time Location / / Volume Laterality 09/24/2013 09/24/2013 12:0 1 EST David Dewey MD PATHOLOGY ORDERABLES Performing Organization Address City/State/ZIP Code Phon e Number [facility] [address] [place] [address] SERVICES [facility] [address] [place] [address] documented in this encounter Visit Diagnoses Not on filedocumented in this encounter Administered Medications Inactive Administered Medications - up to 3 most recent administrations Medication Order MAR Action Action Date Dose Rate Site ceFAZolin (ANCEF) syringe 1 g Given by Other 09/24/2013 8:01 EST 1 g 1 g, intravenous, Administer over 10 Minutes, PRE-OP ONCE, 1 dose, On Mon09/24/13 at 0730, Routine, Pre Op Day of Surgery lactated ringers (LR) infusion Rate Documented 09/24/2013 11:40 EST 75 mL/hr at 75 mL/hr, intravenous, CONTINUOUS, Starting on Mon09/24/13 at 1200, Until Mon09/24/13 at 1636, Routine, Recovery (only) lactated ringers (LR) infusion New Bag 09/24/2013 7:17 EST 25 mL/hr at 25 mL/hr, intravenous, CONTINUOUS, Starting on Mon09/24/13 at 0730, Until Mon09/24/13 at 1636, Routine, Pre Op Day of Surgery documented in this encounter Discontinued Medications Medication Sig Discontinue Reason Start Date End Date hydrochlorothiazide Take 25 mg by Error 014 (HYDRODIURIL) 25 mg tablet mouth daily. documented as of this encounter Historical Medications This list may reflect changes made after this encounter. Medication Sig Dispensed Refills Start Date End Date aspirin chewable 81 mg Take 81 mg by mouth 0 tablet daily. acetaminophen (TYLENOL) 500 Take 650 mg by mouth 0 mg tablet every 6 hours as needed for Pain. Zinc 15 mg tablet Take by mouth. 0 UNABLE TO FIND Med Name:vit C 500 0 mg . Multivitamins with Minerals Take 1 Tab by mouth 0 tablet daily. Docosahexanoic Take by mouth. 0 Acid-Eicosapent (FISH OIL) 120-180 mg capsule vit Take by mouth. 0 Q-[id number] (BIOFLEX) 811-91-45-40 mg tablet UNABLE TO FIND Atenolol combine 0 with HCTZ 100-25 mg, daily in AM . added in this encounter Active and Recently Administered Medications Times are shown in EST. Scheduled Medication Order 09/22/2013 09/23/2013 09/24/2013 ceFAZolin (ANCEF) syringe 1 g (COMPLETED) 08 (Given by Other - Provider: Amanda Napoles RN - Comment: given by Ubaldo Christina crna) 1 g, intravenous, for 10 Minutes, PRE-OP ONCE, 1 dose, 09/24/13 at 0730, Routine Continuous Medication Order 09/22/2013 09/23/2013 09/24/2013 lactated ringers (LR) infusion (CANCELED) 1140 (Rate Documented - Provider: Velia Graf RN)1400 (Completed - Provider: Velia Graf RN) at 75 mL/hr, intravenous, CONTINUOUS, St arting 09/24/13 at 1200, Until 09/24/13 at 1636, Routine lactated ringers (LR) infusion (CANCELED) 0717 (New Bag - Provider: Selma Serrano RN)1140 (Completed - Provider: Velia Graf RN) at 25 mL/hr, intravenous, CONTINUOUS, St arting 09/24/13 at 0730, Until 09/24/13 at 1636, Routine documented in this encounter Orders Medications Ordered That Might Not Have Count Last Ord ered Date First Ordered Date Been Administered atropine 0.1 mg/mL syringe 0.4 mg 1 09/24/2013 diphenhydrAMINE (BENADRYL) injection 6.25 1 2013 mg fentaNYL citrate (PF) 50 mcg/mL injection 1 2013 25-100 mcg HYDROmorphone (DILAUDID) tablet 2 mg 1 09/24/2013 HYDROmorphone (PF) (DILAUDID) 1 mg/mL 09/24/2013 injection 0.2-1 mg metoCLOPramide (REGLAN) injection 10 mg 1 09/25/19 14 nalOXone (NARCAN) injection 0.2 mg 1 09/24/2013 ondansetron (PF) (ZOFRAN) injection 2 mg 1 014 oxyCODONE (ROXICODONE) immediate release 014 tablet 5 mg Diet Count Last Ordered Date First Ordered Date DISCHARGE DIET 1 09/24/2013 Nursing Count Last Ordered Date First Ordered Date ACTIVITY INSTRUCTIONS 09/24/2013 INSERT PERIPHERAL IV 1 09/24/2013 Transfer Count Last Ordered Date First Ordered Date NOTIFY PPS PACU PATIENT DISCHARGE 09/24/2013 NOTIFY PPS PATIENT ARRIVAL IN PACU 1 09/24/2013 Discharge Count Last Ordered Date First Ordered Date DISCHARGE PATIENT 1 09/24/2013 Legal Count Last Ordered Date First Ordered Date MISCELLANEOUS DISCHARGE INSTRUCTIONS 2 09/24/2013 documented in this encounter Care Teams 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
--- NOTE | 2022-06-17 07:00 | DI.RAD_ITS ---
Exam(s) XR LUMBAR SPINE COMPLETE EXAM: XR LUMBAR SPINE COMPLETE CLINICAL HISTORY: right LBP M54.16 RADICULOPATHY LUMBAR REGION TECHNIQUE: COMPARISON: CR LUMBAR SPINE COMPLETE from 02/05/2015 FINDINGS: Five views were obtained. There is loss of disc height throughout the lumbar region with multilevel loss of disc height consistent with disc degeneration. There are very prominent hypertrophic endplate changes at multiple levels. Moderate facet hypertroph ic changes noted throughout the lumbar region as well. There is no evidence of spondylolysis or spon dylolisthesis. There is mild pseudo spondylolisthesis of L4 on L5. IMPRESSION: Severe DJD lumbosacral spine. RADIATION DOSE DELIVERED: Total DLP
--- NOTE | 2022-06-17 07:00 | DI.RAD_ITS ---
Exam(s) XR HIP RT COMPLETE AP PELVIS EXAM: XR HIP RT COMPLETE AP PELVIS CLINICAL HISTORY: r hip pain M25.551 PAIN RT HIP TECHNIQUE: COMPARISON: No exams were available for comparison FINDINGS: Two views were obtained. There are surgical sutures overlying the right inguinal region. Cartilagin ous joint spaces of both hips appear mildly thinned with mild hypertrophic marginal osteophyte format ion of the acetabulum bilaterally noted as well. No other significant bony abnormality seen involvin g the hips. There are mild degenerative changes of both SI joints and there appear to be moderate to severe degen erative changes of the lower lumbar spine. IMPRESSION: Mild DJD both hips RADIATION DOSE DELIVERED: Total DLP
== END ==
PROVIDERS: PCP Family Medicine; Visit Provider Family Medicine
DX: M54.16 Radiculopathy, lumbar region (principal); M16.0 Bilateral primary osteoarthritis of hip; M47.817 Spondylosis without myelopathy or radiculopathy, lumbosacral region
CPT/HCPCS: 72110; 73502

== ENCOUNTER → 2022-07-12 01:01 | Outpatient (CLI) | payer MEDICARE, BC, SELFPAY ==
--- NOTE | 2022-07-12 06:45 | DI.MRI_ITS ---
Exam(s) MR LUMBAR SPINE WO EXAM: MR LUMBAR SPINE WO CLINICAL HISTORY: severe right leg and LBP; failed conservative care,SPINAL STENOSIS,RADICULO. TECHNIQUE: Multiplanar multisequence MRI of the Lumbar spine was performed. COMPARISON: MR MRI - LUMBAR SPINE WO CONTRAST from 02/19/2015 CR XR LUMBAR SPINE COMPLETE from 06/17/2022 FINDINGS: Conus medullaris is at normal level. There is no evidence of conus mass nor subjacent clumping of in trathecal nerve roots to suggest arachnoiditis. The distal thecal sac appears unremarkable.There is no evidence of Tarlov intrasacral cysts nor other significant findings within the sacral canal Bones:There are no fractures nor ominous osseous lesions in the lumbar vertebral bodies and visualize d sacrum. With respect to the individual levels... T11-T12: There is chronic decreased disc height at this level. Also anterior osseous lipping. Poste riorly at this level there is a central-left paracentral disc protrusion which indents the thecal sac , resulting in mild central canal stenosis. Also mild left-sided foraminal stenosis. These findings at this level appear unchanged from the prior MRI scan of January 2015 (when comparing the sagittal jonathon ges; there are no axial images through this disc space at that time.) T12-L1: Remains unremarkable with preserved disc height and no disc herniation or central canal steno sis nor foraminal stenosis evident at this level. L1-2: This level exhibits advanced disc space narrowing and lateral right sided osteophytes. There a re now Modic type 2 sub endplate fatty marrow changes at this double. There is broad annular bulging posteriorly which is more prominent on the right than the left side and extends into the floor of th e exiting right neural foramen. Mild right-sided foraminal stenosis noted. The amount of annular bu lging posteriorly is relatively similar to 2015. The exiting left neural foramen is patent as there is slightly less disc height loss on the left side when compared to the right side. There are mild d egenerative facet joint changes bilaterally at this level. L2-3: This level also again exhibits significant disc space narrowing and the amount of narrowing is also more severe on the right side where there also lateral osteophytes, similar to L1-2. There is r elatively symmetrical broad annular bulging at this level noted which is relatively similar to the pr ior 2015 study, resulting in mild-moderate central spinal canal stenosis. There is extension of the annular bulging into the floor of the exiting neural foramina. This causes mild foraminal stenosis o n the right side and minimal foraminal stenosis on the left side. Facet joints appear unchanged with mild degenerative changes. L3-4: This level also exhibits asymmetric disc height loss, more so on the right than the left. Ther e is relatively symmetrical annular bulging at this level noted, having somewhat increased as seen on the axial images and resulting in moderate central spinal canal stenosis. On the right side there i s extension of the bulging annulus into the exiting right neural foramen and as superimposed small di sc protrusion evident at this level. There is moderate-severe right-sided foraminal stenosis at this level. On the opposite-left side there is only mild foraminal stenosis due to the relative preserva tion of disc height on the left side of this disc space. Mild facet arthropathy is also again eviden t at this level. L4-5: This level exhibits significant decreased disc height when compared to the 2014 study. There is relative preservation of disc height on the right side of the disc space and advanced narrowing of the disc height on the left lateral side of this disc space. There is also now significant antro li sthesis of L4 upon L5 with approximately 6 millimeters anterior slippage of L4 upon L5 due to the adv anced degenerative changes in the facet joints at this level (there are no obvious L4 pars defects). There is severe central spinal canal stenosis at this level again noted due to the listhesis and pse udo herniation of the annulus. Lateral recesses also carried forward by the slippage of L4 upon L5. There is, however, only mild bilateral foraminal stenosis. Advanced facet arthropathy evident bilat erally at this level. L5-S1: This level again exhibits advanced uniform disc height loss. No listhesis. There is a centra l subligamentous disc protrusion at this level which exhibits minimal change from 2015 study. There is mild bilateral foraminal stenosis at this level. Facet joints appear relatively unremarkable at t his level. Soft tissues: paraspinal soft tissues appear unremarkable. IMPRESSION: 1. Multilevel findings as described individually above. 2. When compared to the prior MRI scan of January 2015 most significant deterioration is at the L4-5 lev el where there is now degenerative anterolisthesis of L4 upon L5 evident. 3. There other significant findings T11-12, L1-2, L2-3, and L3-4 levels, as described above. DATA REPOSITORY:
== END ==
PROVIDERS: PCP Family Medicine; Visit Provider Family Medicine
DX: M48.04 Spinal stenosis, thoracic region (principal); M51.36 Other intervertebral disc degeneration, lumbar region; M54.16 Radiculopathy, lumbar region; M48.062 Spinal stenosis, lumbar region with neurogenic claudication; M43.16 Spondylolisthesis, lumbar region
CPT/HCPCS: 72148

== ENCOUNTER 2022-08-15 02:59 | Outpatient (CLI) | payer MEDICARE, BC, SELFPAY ==
[2022-08-15 12:37] LABS: ALT 33 U/L (16-63); AST 27 U/L (15-37); Albumin 3.7 g/dL (3.4-5.0); Alkaline Phosphatase 96 U/L (46-116); Anion Gap 6.9 mmol/L (3-11); BUN 19 mg/dL (7-18); Bilirubin, Total 0.5 mg/dL (0.2-1.0); CO2 31.1 mmol/L (21.0-32.0); Calcium 9.4 mg/dL (8.5-10.1); Calculated LDL 169 mg/dL (<100); Chloride 100 mmol/L (98-107); Cholesterol 250 mg/dL (<200); Estimated GFR 79.97 (mL/min/1.73m2); Glucose 100 mg/dL (74-106); HDL Cholesterol 58 mg/dL (40-60); Potassium 3.1 mmol/L (3.5-5.1); Sodium 138 mmol/L (136-145); Total Protein 7.9 g/dL (6.4-8.2); Triglyceride 118 mg/dL (<150)
== END 2022-08-15 03:00 | disposition home or self-care (01) ==
LOC: LOS 02:59
PROVIDERS: PCP Family Medicine; Visit Provider Family Medicine
DX: I10 Essential (primary) hypertension (principal)
CPT/HCPCS: 36415; 80053; 80061

== ENCOUNTER 2022-09-05 08:35 | Outpatient (CLI) | payer MEDICARE, BC, SELFPAY ==
--- NOTE | 2022-09-05 08:30 | RT.EKG_ITS ---
APPROVED REPORT Exam: Resting ECG Reason for Exam: Surgery scheduled. EKG required Patient Location: O HR:58 bpm ECG Measurements Heart Rate 58 AXIS ID 184 P 48 QRSd 86 QRS 13 QT 397 T 27 QTc 390 Conclusion Sinus rhythm...normal P axis, V-rate 50- 99 Normal Electrocardiogram
== END 2022-09-05 08:36 | disposition home or self-care (01) ==
PROVIDERS: PCP Family Medicine; Visit Provider Family Medicine
DX: Z01.818 Encounter for other preprocedural examination (principal)
CPT/HCPCS: 93010

== ENCOUNTER 2022-09-05 09:14 | Outpatient (CLI) | payer MEDICARE, BC, SELFPAY ==
[2022-09-05 12:58] LABS: Anion Gap 5.8 mmol/L (3-11); BUN 21 mg/dL (7-18); CO2 32.2 mmol/L (21.0-32.0); Calcium 9.6 mg/dL (8.5-10.1); Chloride 101 mmol/L (98-107); Estimated GFR 79.97 (mL/min/1.73m2); Glucose 112 mg/dL (74-106); Potassium 3.7 mmol/L (3.5-5.1); Sodium 139 mmol/L (136-145)
== END 2022-09-05 09:15 | disposition home or self-care (01) ==
PROVIDERS: PCP Family Medicine; Referring Provider Family Medicine; Visit Provider Family Medicine
DX: E87.6 Hypokalemia (principal); I10 Essential (primary) hypertension
CPT/HCPCS: 36415; 80048

== ENCOUNTER 2022-10-24 09:27 | Emergency (ER) | payer MEDICARE, BC, SELFPAY ==
[2022-10-24 09:36] VITALS: BP 163/92; PULSE 56; RESP 18; TEMP 36.4; O2SAT 98
--- NOTE | 2022-10-24 10:35 | ED.GENADUL_ITS ---
Discharge Plan Disposition Patient Disposition: Home Condition: Stable Discharge Details Clinical Impression: Acute pain of right shoulder, Injury of right rotator cuff Primary Care Provider: Elizabeth Sanders ED Provider: Nicole Chaudhari Home Meds and New Rx's Prescriptions: Continued atenolol-chlorthalidone 50-25 mg tablet 1.5 tab PO DAILY Qty: 135 4RF Patient Comments: not taking sildenafil (pulm.hypertension) 20 mg tablet 20 mg PO DAILY Qty: 90 12RF triamcinolone acetonide 80 GM ointment 1 xiomara Topical BID PRNQty: 3 Patient Comments: not taking Rx Instructions: RX-04/26/11 X 1YR Ladonna-C with Bioflavonoids 1 EACH tablet 1 tab PO DAILY omega-3 fatty acids-fish oil 1 EACH capsule 1 cap PO DAILY CENTRUM SILVER TABLET 1 EACH tablet 1 tab PO DAILY acetaminophen [Tylenol Arthritis Pain] 650 MG tablet extended release 650 mg PO HS ibuprofen [Advil] 200 MG tablet 200 mg PO QID PRN uvpmmgqo-pkqr-[id number]-C-anahi-bosw 1 EACH tablet 1 ea PO BID cyclobenzaprine 10 mg tablet 10 mg PO HS PRN (Reason: muscle spasm) Qty: 30 0RF potassium chloride 20 mEq tablet extended release 20 meq PO DAILY Qty: 90 5RF atenolol-chlorthalidone 50-25 mg tablet 1 tab PO DAILY zinc Tablet,Chewable 1 tab PO DAILY Discharge Instructions Instructions: Rotator Cuff Injury (ED), Shoulder Pain (ED) Additional Instructions: As we discussed, I am concerned that you tore your rotator cuff and biceps tendon. Please continue with sling to help with discomfort. However, please come out of this at least 6 times a day to perform the range of motion exercises we discussed. Encouraged rest, ice, elevation. May use Tylenol and ibuprofen as needed for discomfort. Attached is a referral for physical therapy. I have also referred you to orthopedics, please call tomorrow to schedule follow-up appointment, number listed below. If you develop any new or worsening symptoms please seek care urgently once again Stand Alone Forms: Physical Therapy Referral Referrals: Mekhi Ward MD [ [facility]FF PHYSICIAN] - Discharge Data Discharge Date/Time-TO BE ENTERED AT DEPARTURE: 10/24/22 11:57 Medical Decision Making Patient is a pleasant 72-year-old qmilc-bcfw-cclxnhri male presenting today with chief complaint of right shoulder. He reports that last night he was walking his dog when he slipped on some ice and fell on his outstretched right hand. He denies striking his head. No loss of consciousness. He felt and heard a pop in the right shoulder and since then has been having significant pain. He reports that he is also had significant weakness and is not able to elevate the arm without the help of the left side. He does state that when he tries to elevate with the left arm he is not having any discomfort. Patient did recently have spinal surgery but states that he did not injure his back and has no pare sthesias, change in bowel or bladder habit or weakness in his lower extremities. On exam, patient appears nontoxic. He has 2+ distal pulses. Sensation is intact. He has no axillary nerve dysfunction. He has full range of motion of all of his fingers and no evidence of median, radial or ulnar injury. No musculocutaneous numbness. He is forage of motion of the elbow and wrist as well. However, with any type of movement of the shoulder, both with forward elevation, external rotation and internal rotation, patient has point tenderness and significant weakness. He is able to move this with the contralateral hand passively and do quite well. Patient does have a Ton deformity but no ec chymosis. He is tender over the biceps insertion point. He is also tender over the deltoid and posteriorly but again, no palpable deformity. I am concerned about rotator cuff injury. Patient has been using acetaminophen to help with this discomfort and declines any further analgesics at this time FINDINGS: Four views: No evidence of acute fracture or dislocation.? Small calcification noted just above the greater tuberosity.? There is diminution of the subacromial space.? Osteophytic ridge noted on the undersurface of the acromion.? AC joint not distracted.? Glenohumeral joint exhibits minimal degenerative change.? Small calcific density noted adjacent to the anterior cortex of the proximal humerus. Ipsilateral clavicle appears intact. IMPRESSION: No acute fracture.? However, appearance suggests presence of full-thickness rotator cuff tear. Small calcific density in the soft tissues anterior to the proximal humerus may be within the biceps tendon sheath. Discussed with patient. The concern for full thickness sheath does fit clinically. Encouraged RICE. Discussed passive ROM exercises, he was abl eto demonstrate this. Will fit with sling to be able to help with discomfort acutely. Advised APAP or NSAID for discomfort. Will refer to PT and orthopedics. He will call to schedule appointment. Return precaution discussed. Discussed activities that he should avoid. All of his questions and concerns were addressed, he is in agreeemtn with this plan. HPI General Date/Time Provider Initiated Documentation: 10/24/22 10:11 . Limitations to Documentation: no limitations . Information obtained by: patient and RN notes reviewed . History of Present Illness 72 year old M presents to the emergency department with the chief complaint of right shoulder pain, weakness, described as moderate, Quality is described as aching, and is localized to the right and upper extremity. Patient reports no radiation. Patient started experiencing this day(s) (1) and it has been constant. Immobilization improves symptom(s), Movement worsens symptoms . Patient notes no other symptoms.. Patient did receive the following treatments prior to arrival, none Related Data Home Medications Medication Instructions Recorded Confirmed Centrum Silver Tablet 1 tab PO DAILY 12/20/12 10/24/22 ascorbate calcium-bioflavonoid 500 1 tab PO DAILY 12/20/12 10/24/22 mg-200 mg tablet (Ladonna-C with Bioflavonoids) omega-3 fatty acids-fish oil 300 1 cap PO DAILY 12/20/12 10/24/22 mg-1,000 mg capsule triamcinolone acetonide 0.1 % 1 xiomara topical BID PRN ##3 12/20/12 10/06/22 topical ointment acetaminophen 650 mg 650 mg PO HS 07/22/13 10/24/22 tablet,extended release (Tylenol Arthritis Pain) glucosamine 750 ql-eppdizqcyp-sdx 1 ea PO BID 07/22/13 10/24/22 no.1 625 mg-C 30 ud-atfv-bkvx tablet ibuprofen 200 mg tablet (Advil) 200 mg PO QID PRN 07/22/13 10/24/22 atenolol 50 mg-chlorthalidone 25 1.5 tab PO DAILY #135 tabs 10/04/21 10/06/22 mg tablet sildenafil (pulm.hypertension) 20 20 mg PO DAILY #90 tab-caps 10/04/21 10/24/22 mg tablet cyclobenzaprine 10 mg tablet 10 mg PO HS PRN muscle spasm #30 02/10/22 10/24/22 tabs potassium chloride 20 mEq 20 meq PO DAILY #90 tabs 08/16/22 10/24/22 tablet,extended release atenolol 50 mg-chlorthalidone 25 1 tab PO DAILY 10/24/22 10/24/22 mg tablet zinc 1 tab PO DAILY 10/24/22 10/24/22 Previous Rx's Medication Instructions Recorded atenolol 50 mg-chlorthalidone 25 1.5 tab PO DAILY #135 tabs 10/04/21 mg tablet sildenafil (pulm.hypertension) 20 20 mg PO DAILY #90 tab-caps 10/04/21 mg tablet cyclobenzaprine 10 mg tablet 10 mg PO HS PRN muscle spasm #30 02/10/22 tabs potassium chloride 20 mEq 20 meq PO DAILY #90 tabs 08/16/22 tablet,extended release Allergies Allergy/AdvReac Type Severity Reaction Status Date / Time pravastatin AdvReac Intermediate MYALGIA Verified 10/24/22 09:38 General Stated Complaint: Orthopedic JEAN-CLAUDE: 4 Review of Systems Constitutional Constitutional: Reports as per HPI, Denies chills, Denies fever(s), Denies headache(s) and Denies weakness ENT Ears, Nose, Mouth, and Throat: Denies headache(s) Cardiovascular Cardiovascular: Reports as per HPI Respiratory Respiratory: Reports as per HPI and Denies cough Musculoskeletal Musculoskeletal: Reports as per HPI and Denies tingling Integumentary/Breasts Skin/Breast: Reports as per HPI, Denies rash and Denies wounds Neurologic Neurologic: Reports as per HPI, Denies headache(s), Denies tingling, Denies paresthesias and Denies weakness PFSH All Active Problems (Updated 10/24/22 @ 11:50 by PEACE Eaton) Acute pain of right shoulder (Acute) Injury of right rotator cuff (Acute) Hypokalemia (Acute) Lumbar degenerative disc disease (Acute) Lumbar back pain with radiculopathy affecting lower extremity (Acute) Spinal stenosis (Acute) Right hip pain (Acute) Muscle spasm (Acute) Right inguinal hernia (Acute) Thoracic spine pain (Acute) Thoracic outlet syndrome (Chronic) Tear film insufficiency (Chronic) Sexual function problem (Chronic) Migraine (Chronic) 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, face, 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 Lumbar radiculopathy (Chronic 02/05/15) multi level DDD erica L5-S1 Essential hypertension (Chronic 07/19/13) Diverticulosis of colon without diverticulitis (Chronic) 12/24 COLONOSCOPY: A FAIR AMT OF SIGMOID DIVERTICULI; NO SIGN OF BLEEDING, IN SPITE OF GI HEMORRHAGE 11/14/14-[facility]; PANDIVERTICULOSIS Surgical History (Updated 05/09/18 @ 14:36 by [employer] [place]) DISCECTOMY 04/2015 PROCEDURES EXC SPERMATIC VARICOCELE, 1979 TESTICULAR OPERATION NEC, 1973 TORSION L TESTICLE Repair of inguinal hernia (~1994) Family History (Updated 09/02/20 @ 12:05 by Akosua Garcia) Mother No problems noted. Father Diffuse non-Hodgkin's lymphoma Sister Hyperlipidemia Neoplasm LUNG Grandfather , blood clot at age 56. Stroke Grandfather Heart disease Son Adopted Social History (Updated 10/06/21 @ 15:37 by Kathy Hui) Smoking/Tobacco Use Status: Former Tobacco Use tobacco type: cigarettes Tobacco: How many years used: 30 Second Hand Exposure: Yes Smoking risk assessment performed?: Yes Alcohol Intake: former Drug use: Occasionally Substance use type: marijuana Caregiver/Support person: No Household members: none Housing: house Communication Needs: None Do you need help understanding health information?: Never current occupation: [employer]/ [employer] Pets and animals: Yes Pets and animals: dog(s) Sexually active: Yes Do you think of yourself as: bisexual Current gender identity: male What is your relationship status?: How often do you talk on the phone with friends or family?: three or more times per week How often do you get together with friends or relatives?: three or more times per week Panel score (0-1 are the most socially isolated patients): 1 What type of physical activity do you participate in: walking Duration: 15-30 minutes/day Frequency: 5-6 times per week Kathie/Denominational: [place] Special kathie needs: No Seatbelt use: always Helmet use: Yes Helmet use: sometimes Drive intox or ride w/intox dinkey driver: No Do you feel safe at home: Yes Do you feel safe in your relationship?: Yes Exam Const General: cooperative, healthy appearing, comfortable, no acute distress, well developed and well groomed Nutritional Appearance: average body habitus and well nourished Orientation: alert and awake Chest Chest: normal palpation of entire chest wall and no tenderness Resp Effort & Inspection: normal respiratory effort, able to speak in complete sentences and no respiratory distress Cardio Rate: regular rate Rhythm: regular rhythm Skin General skin exam: no rashes or lesions noted Lesions: no lesions Rashes: no rashes Trauma: no lacerations or abrasions Neuro General: patient alert and patient awake Cognition: normal cognition Speech: speech normal Gait: normal gait Motor: muscle tone normal throughout Sensory Exam: no sensory deficits noted Extrem Shoulder/upper arm images: 1. Pain over the anteriolateral right shoulder. Nonradiating. 2+ distal pulses. Sensation intact. Motor function intact in the elbow, wrist, hand. Patient unable to FE, ER, IR at right shoulder. Passive ROM intact. Pain over the proximal biceps, deformity compared to contralateral side. No ecchymosis. Pain lateral over the subacromial space. No pain over the clavicle, AC joint or posteriorly. Psych Appearance: grossly normal and well kempt Mental Status: mental status grossly normal Speech and Movement: speech and movement normal Course Vital Signs Vital signs: Vital Signs Temperature 36.4 C 10/24/22 09:36 Pulse 56 L 10/24/22 09:36 Respiratory Rate 18 10/24/22 09:36 Blood Pressure 163/92 H 10/24/22 09:36 Pulse Oximetry 98 10/24/22 09:36 Temperature 36.4 C 10/24/22 09:36 Temperature Source Oral 10/24/22 09:36 Pulse 56 L 10/24/22 09:36 Respiratory Rate 18 10/24/22 09:36 Respiratory Effort Normal, Non-Labored 10/24/22 09:36 Blood Pressure 163/92 H 10/24/22 09:36 Pulse Oximetry 98 10/24/22 09:36 Oxygen Delivery Method Room Air 10/24/22 09:36 Oxygen Flow Rate 0 10/24/22 09:36
--- NOTE | 2022-10-24 10:45 | DI.RAD_ITS ---
Exam(s) XR SHOULDER RT COMPLETE 2+V EXAM: XR SHOULDER RT COMPLETE 2+V CLINICAL HISTORY: AGUILAR. TECHNIQUE: 2D digital imaging was performed. COMPARISON: No exams were available for comparison FINDINGS: Four views: No evidence of acute fracture or dislocation. Small calcification noted just above the greater tuber osity. There is diminution of the subacromial space. Osteophytic ridge noted on the undersurface of the acromion. AC joint not distracted. Glenohumeral joint exhibits minimal degenerative change. S mall calcific density noted adjacent to the anterior cortex of the proximal humerus. Ipsilateral clavicle appears intact. IMPRESSION: No acute fracture. However, appearance suggests presence of full-thickness rotator cuff tear. Small calcific density in the soft tissues anterior to the proximal humerus may be within the biceps tendon sheath. DATA REPOSITORY: RADIATION DOSE DELIVERED:
[2022-10-24 11:42] VITALS: BP 128/68; PULSE 68; RESP 15; O2SAT 98
== END 2022-10-24 11:57 | disposition home or self-care (01) ==
PROVIDERS: Emergency Provider Physician Assistant; PCP Family Medicine
DX: S46.001A Unspecified injury of muscle(s) and tendon(s) of the rotator cuff of right shoulder, initial encounter (principal); W00.0XXA Fall on same level due to ice and snow, initial encounter; Y93.K1 Activity, walking an animal
CPT/HCPCS: 99283; 73030

== ENCOUNTER → 2022-11-01 10:39 | Outpatient (BNVA) | payer MEDICARE, BC, SELFPAY | PROVIDERS: PCP Family Medicine; Referring Provider Family Medicine; Visit Provider Student in an Organized Health Care Education/Training Program | DX: M75.101 Unspecified rotator cuff tear or rupture of right shoulder, not specified as traumatic (principal) | CPT/HCPCS: 99203; 99213 ==

== ENCOUNTER 2022-11-21 03:08 | Outpatient (CLI) | payer MEDICARE, BC, SELFPAY ==
--- NOTE | 2022-11-21 07:45 | DI.MRI_ITS ---
Exam(s) MR UPPER JOINT RT WO EXAM: MR UPPER JOINT RT WO CLINICAL HISTORY: ? rotator cuff tear,ACUTE PAIN,INJURY,M25.511,S46.001A,M75.101. TECHNIQUE: Multiplanar multisequence MRI was performed. COMPARISON: CR XR SHOULDER RT COMPLETE 2+V from 10/24/2022 FINDINGS: BONES: There is no fracture or contusion pattern. JOINTS: There are degenerative changes seen at the acromioclavicular joint. There is elevation of th e humeral head. The glenohumeral joint is otherwise unremarkable. TENDONS: Supraspinatus: There is a complete tear of the supraspinatus tendon with retraction to the level of t he acromioclavicular joint. Infraspinatus: There is a complete tear of the infraspinatus tendon with retraction posterior to the humeral head. Subscapularis: Unremarkable. Teres Minor: Unremarkable. Biceps and [place]: There is tendinosis of the biceps tendon. MUSCLES: There is mild fatty atrophy of the infraspinatus muscle. The remaining muscles show normal signal and size. GLENOID LABRUM: Unremarkable on this noncontrast examination. SOFT TISSUES: Unremarkable. LIGAMENTS: Unremarkable. OTHER: There is fluid seen in the subacromial subdeltoid bursa. IMPRESSION: 1. There are complete tears of the supraspinatus and infraspinatus tendons with retraction. There is mild fatty infiltration of the infraspinatus muscle. 2. There is tendinosis of the biceps tendon. 3. Degenerative changes are seen at the acromioclavicular joint. DATA REPOSITORY:
== END 2022-11-21 03:28 ==
LOC: DI 03:12
PROVIDERS: PCP Family Medicine; Visit Provider Student in an Organized Health Care Education/Training Program
DX: M25.511 Pain in right shoulder (principal); M75.101 Unspecified rotator cuff tear or rupture of right shoulder, not specified as traumatic; S46.001A Unspecified injury of muscle(s) and tendon(s) of the rotator cuff of right shoulder, initial encounter
CPT/HCPCS: 73221

== ENCOUNTER → 2022-11-23 10:36 | Outpatient (BNVA) | payer MEDICARE, BC, SELFPAY | PROVIDERS: PCP Family Medicine; Referring Provider Family Medicine; Visit Provider Student in an Organized Health Care Education/Training Program | DX: S46.211A Strain of muscle, fascia and tendon of other parts of biceps, right arm, initial encounter (principal); M75.101 Unspecified rotator cuff tear or rupture of right shoulder, not specified as traumatic; X58.XXXA Exposure to other specified factors, initial encounter; M12.811 Other specific arthropathies, not elsewhere classified, right shoulder | CPT/HCPCS: 99213 ==

== ENCOUNTER 2022-12-12 01:12 | Outpatient (CLI) | payer MEDICARE, BC, SELFPAY ==
--- NOTE | 2022-12-12 07:00 | DI.CT_ITS ---
Exam(s) CT UPPER EXTREMITY RT WO EXAM: CT UPPER EXTREMITY RT WO CLINICAL HISTORY: PRE SURGICAL PLANNING FOR REVERSE TSA,rotator cuff arthropathy,m12.811. TECHNIQUE: Imaging Protocol: Axial computed tomography images with coronal and sagittal reformatted images were created and reviewed. COMPARISON: CR XR SHOULDER RT COMPLETE 2+V from 10/24/2022 MR MR UPPER JOINT RT WO from 11/21/2022 FINDINGS: CT scan of the right shoulder was performed for pre-surgical planning. Bones: The osseous structures and articular surfaces are intact. There are degenerative changes see n at the acromioclavicular joint characterized by joint space narrowing and bony hypertrophy. Subcho ndral cysts are seen. At the glenohumeral joint there is superior subluxation of the humeral head re lative to the glenoid. This can be seen with chronic rotator cuff tear. There are degenerative jimenez ges seen at the glenohumeral joint with joint space narrowing and bony hypertrophy. Subchondral cyst s are seen. No suspicious lytic or sclerotic lesions are identified. The bones are normally mineral ized. Soft Tissues: Normal. The patient's known rotator cuff tears are best appreciated on the MRI of the ratna stephenson from 11/21/2022. 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 RADIATION DOSE DELIVERED: 612.58mGy.cm Total DLP 612.58mGy.cm Total DLP DATA REPOSITORY: All CT scans at this facility are submitted to the National Radiology Data Registry (NRDR) Dose Index Registry (DIR) with the [employer] ([employer]). RADIATION OPTIMIZATION: All CT scans at this facility use at least one of these dose optimization te chniques: automated exposure control; mA and/or kV adjustment per patient size (includes targeted exa ms where dose is matched to clinical indication); or iterative reconstruction.
== END 2022-12-12 01:32 ==
LOC: DI 01:12
PROVIDERS: PCP Family Medicine; Visit Provider Student in an Organized Health Care Education/Training Program
DX: Z01.818 Encounter for other preprocedural examination (principal); M19.011 Primary osteoarthritis, right shoulder
CPT/HCPCS: 73200

== ENCOUNTER → 2022-12-20 09:29 | Outpatient (BNVA) | payer MEDICARE, BC, SELFPAY | PROVIDERS: PCP Family Medicine; Referring Provider Family Medicine; Visit Provider Student in an Organized Health Care Education/Training Program | DX: S46.211A Strain of muscle, fascia and tendon of other parts of biceps, right arm, initial encounter (principal); X58.XXXA Exposure to other specified factors, initial encounter; M75.101 Unspecified rotator cuff tear or rupture of right shoulder, not specified as traumatic; M12.811 Other specific arthropathies, not elsewhere classified, right shoulder | CPT/HCPCS: 99214 ==

== ENCOUNTER 2023-01-05 06:15 | Day surgery (SDC) | payer MEDICARE, BC, SELFPAY ==
[2023-01-05] VITALS (9 sets, daily range): BP systolic 114–134; BP diastolic 63–82; PULSE 59–80; RESP 14–19; TEMP 36.6–36.8; O2SAT 92–100
[2023-01-05] MEDS: Lactated Ringers 1,000 ML 30 ML IV (07:00)
[2023-01-05] MEDS: ceFAZolin 2 GM/50 ML BAG IVPB (07:50)
--- NOTE | 2023-01-05 08:52 | W.ANESNERVE ---
Nerve Block Single Injection Procedure Date and Time Date Performed: 01/05/23 Procedure Start: 07:15 Location Where Procedure Performed Procedure Location: Day Surgery Unit Reason Performed: Postoperative Analgesia Requesting Provider: Narciso Putnma Timeout Performed Timeout Performed: Yes Monitoring Used ECG, Blood Pressure and SpO2 Sterility Sterility: Hand Hygiene, Surgical Cap, Surgical Mask, Sterile Gloves and Chlorhexidine Sedation Given During Procedure Sedation Given (Indicate Dose Given): Versed IV Dose:: 1mg Patient Mental Status Patient Mental Status: Awake Nerve Block 1st Nerve Block: Laterality: Right Block Type: Interscalene Ultrasound Image Saved?: Yes Needle / Catheter Used: 100mm SonoPlex II Local Anesthetic Bolus (Indicate Dose Given): Lidocaine used for local infiltration of skin, Injected in 3-5ml increments after negative blood aspiration, Bupivacaine 0.5% Dose:: 10ml and Exparel Dose:: 10ml Additives (Indicate Dose Given): None Ultrasound: Sterile probe cover and gel used Nerve Stimulator: Supplement to Ultrasound use Paresthesia: Right Paresthesia Duration: Transient Procedure Tolerated: No Complications and Patient tolerated well Procedure Outcome: Successful Performed By: Raysa Lucio Supervised By: Jerry Webber
--- NOTE | 2023-01-05 10:54 | ROE_ITS ---
Date of service: 01/05/23 Time of Service: 07:30 Operative Note Operative Note DATE OF PROCEDURE: 01/05/23 PRE-OP DIAGNOSIS: Right: 1. Rotator cuff arthropathy 2. Long head of the biceps rupture POST-OP DIAGNOSIS: same PROCEDURE: Right: 1. Reverse total shoulder arthroplasty, CPT # 03591 2. Revision open biceps tenodesis, CPT # 78979 The surveyor instrument assistant was medically required as this procedure involves retraction, protection of neurovascular structures, and manipulation of multiple instruments and implants at the same time, which cannot be done without a skilled surveyor instrument assistant. SURGEON: Narciso Putnam WET WHEELER: Carloz Curry ANESTHESIA TYPE: General LMA/ETT and Primary Nerve Block Refer to Anesthesia Record ESTIMATED BLOOD LOSS: 75 COMPLICATIONS: None Patient was transported to: PACU Patient's condition: stable Implants: [employer] modular glenoid system baseplate 24 mm, +2mm lateralized [employer] modular glenoid system central post 25 mm [employer] modular glenoid system peripheral locking screws 28 mm inferior, 36 mm superior, 16 mm posterior, 20 mm anterior [employer] modular glenoid system glenosphere 39+4 mm lateralized [employer] humeral stem 135 degrees size 7 [employer] suture cup size 39 neutral [employer] humeral insert size 39+6 mm constrained Indications: Please see complete medical record for details. Findings: High?grade proximal long head biceps tendon rupture with residual tendon mobile in the superior aspect of the bicipital groove. Degenerative but largely intact subscapularis. Completely deficient supraspinatus and infraspinatus. Procedure Description: In the operating room, general anesthesia was induced. The patient was positioned beachchair on the operating room table. All bony prominences were well-padded. Preoperative antibiotics were administered. The shoulder was prepped and draped in the usual sterile fashion for shoulder arthroplasty. The correct patient, procedure, and side of the procedure were all verified prior to incision. The deltopectoral approach was preinjected with local anesthetic containing epinephrine and taken to the anterior shoulder. Care was taken to bluntly dissect the interval between the deltoid and pectoralis major muscles and to identify the cephalic vein within its fat stripe. The the vein was mobilized medially. Subdeltoid space and conjoined tendon were freed of adhesions. The long head of the biceps tendon was identified just lateral to the lesser tuberosity. The uppermost margin of the pectoralis major tendon was released from the proximal humerus. The long head of the biceps tendon was secured with suture tape at the upper margin of where it was most intact adjacent to the subscapularis and the bicipital groove. The biceps tendon intra-articular remnant was followed and amputated proximally to identify the rotator interval. A subscapularis peel was performed taking care to release the entire tendon in a full-thickness fashion from superior to inferior and lateral to medial while bringing the arm gradually into external rotation. Care was taken to avoid the axillary nerve by only working on the bone inferiorly and medially. The subscapularis was tagged using SutureTape in a Josh-Aram fashion and traction used confirm appropriate mobilization of the subscapularis tendon after gentle b annamarie dissection was used to free up the space anterior and posterior to it. The subscapularis was diminutive with deficient good tissue superiorly and laterally, but traction stitch maintained for potential, but unlikely later repair. Appropriate coagulation was achieved especially interiorly. The anatomic neck was cut using an oscillating saw with the humeral head bone brought back table in case there was a need for future bone grafting. The proximal humeral protection plate was used to provisionally confirm suture cup and glenosphere size. Attention was then turned to the glenoid and retractors were placed and a circumferential release performed using the long head of the biceps remnant to remove soft tissue about the glenoid rim. Care was taken inferiorly to work on bone only between 5 and 7:00 o'clock and bluntly elevate tissues inferiorly. The VIP guide was placed on the glenoid and used to confirm placement and trajectory of the central guidepin. The guidepin was inserted and advanced just through the far cortex ensuring adequate central fixation length. Depth gauge was used to confirm length. The glenosphere sizer was used to confirm positioning and glenosphere size. The backside of the baseplate reamer and underside of glenosphere reamers were then used. There was appropriate eccentric reaming inferiorly and anteriorly. The central post drill was then used and guidewire removed. The baseplate was impacted and fully compressed onto the glenoid surface. The locking guide was then used to drill and place appropriately lengthed inferior, superior, anterior, and posterior screws. The stew-cyo-qquyqmwqi reamer was used to confirm adequate peripheral reaming. The glenosphere was applied with the siderographist and then impacted to engage the Villa taper. It was then locked with appropriate countersinking of the setscrew. The glenosphere was inspected and found to have good fit, appropriate positioning, and no soft tissue or bony impingement. Attention was then turned back to the proximal humerus, which was delivered from the wound and maintained in external rotation. Reamers were started appropriately posterior to the bicipital groove taking care to maintain in line approach with the humeral canal. Sequential reaming was done from size 5 up to size 7. Next, the broaches were sequentially used to open the proximal humerus starting with a size 5 and going up to size 7 and sunk to the appropriate depth while maintaining approximately 20-25 degrees retroversion. There was excellent metaphyseal fit and rotational control of the proximal humerus with this size. The neutral offset guide was used to ream for the suture cup. The humeral trial cup was connected. Trialing was commenced with +3 mm liner. The shoulder was reduced and taken through range of motion. Trial components were built up to +6 mm liner to achieve good stability and appropriate tension on the deltoid and conjoined tension. The trial components were removed from the proximal humerus. The wound was copiously irrigated with normal saline. The subscapularis was not appropriate for repair so it was tenotomized. The humeral component and suture cup were impacted into place. The trial liner was added, and the shoulder was reduced and range of motion, stability, and tension confirmed to be appropriate. The final +6mm liner was then connected, and range of motion, stability, and tension confirmed. Constrained liner use given lack of soft tissue anteriorly, superiorly, and posterior superiorly given the irreparable subscapularis, and deficient supraspinatus and infraspinatus. The shoulder was copiously irrigated with Betadine and normal saline. Vancomycin powder was distributed deeply about the shoulder and through subcutaneous tissues. The biceps tendon was then held in appropriate tension high in the bicipital groove with the previously placed traction stitches. 2 hfwcjf-za-jsgva suture tape stitches were then used to complete the conversion from high-grade proximal rupture to tenodesis to the upper margin of the pectoralis major tendon. The deltopectoral interval was well approximated with a single 2-0 Monocryl stitch. Subcutaneous tissue was irrigated then closed using 2-0 Monocryl in a buried interrupted fashion. Skin was closed using 3-0 Monocryl in a buried subcuticular fashion. Skin glue was applied to the incision. A silver impregnated bandage was placed over the incision. The extremity was placed into a shoulder immobilizer. The patient awoke from anesthesia without complication and was taken to the recovery room in stable condition.
--- NOTE | 2023-01-05 10:55 | W.PM.DSUDISC ---
Date of service: 01/05/23 Time of Service: 13:00 Discharge Plan Disposition Patient Disposition: Home Discharge Details Attending Provider: Narciso Putnam Primary Care Provider: Elizabeth Sanders Home Meds and New Rx's Prescriptions: New naproxen 250 mg tablet 250 - 500 mg PO BID PRNQty: 40 0RF Rx Instructions: take with a meal aspirin 81 mg tablet,delayed release (DR/EC) 81 mg PO DAILY 7 Days Qty: 7 0RF oxycodone-acetaminophen [Percocet] 5-325 mg tablet 1 - 2 tab PO Q4H MDD 30 mg PRN (Reason: Moderate to severe pain) Qty: 18 0RF Continued sildenafil (pulm.hypertension) 20 mg tablet 20 mg PO DAILY Qty: 90 12RF atenolol-chlorthalidone 50-25 mg tablet 2 tab PO DAILY Patient Comments: not taking triamcinolone acetonide 80 GM ointment 1 xiomara Topical BID PRNQty: 3 Patient Comments: not taking Rx Instructions: RX-04/26/11 X 1YR omega-3 fatty acids-fish oil 1 EACH capsule 1 cap PO DAILY CENTRUM SILVER TABLET 1 EACH tablet 1 tab PO DAILY ribspefx-xwxy-wve4-C-anahi-bosw 1 EACH tablet 1 ea PO BID cyclobenzaprine 10 mg tablet 10 mg PO HS PRN (Reason: muscle spasm) Qty: 30 0RF Ladonna-C with Bioflavonoids 500-200 mg tablet 1 tab PO DAILY PRN acetaminophen [Tylenol Arthritis Pain] 650 mg tablet extended release 650 mg PO HS PRN zinc Tablet,Chewable 1 tab PO DAILY diphenhydramine HCl 25 mg Tablet 25 mg PO DIRECTED PRN Discontinued ibuprofen [Advil] 200 MG tablet 200 mg PO QID PRN Discharge Instructions Additional Instructions: Surgery: Right reverse total shoulder arthroplasty (constrained liner) with biceps tenodesis Activity: Do not lift anything heavier than a coffee. You should keep your arm at your side in a neutral position at all times except for gentle range of motion exercises, physical therapy, and essential activities. You should use the sling whenever you are out of the house. You may have to adjust the abduction pillow or remove it for comfort. At home it is best to remove the sling and rest the arm on a pillow at your side or support the operative side with your other hand. A physical therapy prescription will be sent electronically to start in about 3 weeks. MODIFIED reverse TSA Protocol: Immediate active ROM OK Postoperative Weeks 0-6 ?Immobilization: Sling may be removed for therapeutic exercises, resting in bed or chair, and bathing ?Motion exercises: Pendulum exercises, elbow range- of-motion exercises, wrist opvbp-wx-xmprpn exercises, and dewatering filtering supervisor strengthening ?Restrictions: No active internal rotation or backwards extension Postoperative Weeks 6-12 ?Immobilization: Sling discontinued ?Motion exercises: Shoulder passive range of motion, advancing to active-assisted range of motion, and finally active range of motion with a goal of forward flexion to 90? and external rotation of 20? ?Strengthening exercises: Light, resisted forward flexion, external rotation, and abduction limited to isometric exercises and therapy bands with concentric motions only. Continue dewatering filtering supervisor strengthening ?Restrictions: No resisted internal rotation or backwards extension. No scapular retraction exercises with therapy bands Postoperative Months 3-12 ?Motion exercises: Increase ssizt-ck-lylmnv exercises to achieve full motion, with passive stretching at end ranges ?Strengthening: Begin resisted, internal rotation and backwards extension initially with isometric exercises advancing to light therapy bands and then weights. Advance other shoulder strengthening exercises to include the rotator cuff, deltoid, and scapular stabilizers. Advance to functional strengthening, including plyometric exercises and core strengthening. Prescriptions: Aspirin 81 mg take 1 daily to prevent a blood clot for 1 week (start tomorrow afternoon) Naproxen 250 mg take 1-2 every 12 hours with a meal as needed for moderate pain Oxycodone-acetaminophen 5 mg take 1-2 every 4-6 hours as needed for severe pain (contains Tylenol) You may use hhto-ijn-qhtibeq Tylenol (acetaminophen) as needed for mild pain. These pain medications may be taken all at once or in different combinations as needed. Also, recommend Colace (docusate) as a stool softener as surgery and pain medicine cause constipation. You may try gwdf-cwb-oljhhrg diphenhydramine (Benadryl) 25-50 mg nightly as a sleep aid Dressings: Leave dressing in place until follow-up. Keep clean and dry at all times. No showers please. Follow-up: 10-[address] Putnam You may take off the leg compression stockings this evening at home. You may also leave them on a few days longer if you have a history of leg swelling or edema. Please call the office during business hours with any questions or concerns. Let us know right away if you develop any redness, drainage, fevers, chest pain, or trouble breathing. Do not drink alcohol or drive for at least 24 hours after anesthesia. Stand Alone Forms: Anesthesia Discharge Inst., Camryn.Nerve Block Instructions, Glenda Hook (DSU) Discharge Orders Discharge Orders: Discharge Order (Routine); Ordered 01/05/23 Ordered By: Narciso Putnam DS: Diagnosis Discharge Diagnosis (1) Rotator cuff tear arthropathy of right shoulder: Status: Acute (2) Rupture of right proximal biceps tendon: Status: Acute
--- NOTE | 2023-01-05 11:00 | DI.RAD_ITS ---
Exam(s) XR SHOULDER RT COMPLETE 2+V EXAM: XR SHOULDER RT COMPLETE 2+V CLINICAL HISTORY: Shoulder arthritis. TECHNIQUE: 2D digital imaging was performed. COMPARISON: CR XR SHOULDER RT COMPLETE 2+V from 10/24/2022 FINDINGS: Two postop views: Satisfactory position alignment of the components of the newly placed reverse shoulder prosthesis. N o fracture or loosening evident. IMPRESSION: Satisfactory postop appearance. DATA REPOSITORY: RADIATION DOSE DELIVERED:
--- NOTE | 2023-01-05 12:09 | W.ANESPOSTOP ---
Postoperative Evaluation Date, Time and Location Date Performed: 01/05/23 Time Performed: 12:09 Patient Location: PACU Vital Signs Most Recent Imported Vital Signs: Most Recent Vital Signs Temp Pulse Resp BP Pulse Ox 36.7 C 64 16 120/78 93 01/05/23 11:59 01/05/23 11:59 01/05/23 11:59 01/05/23 11:59 01/05/23 11:59 Pain Score Most Recent Pain Score: Most Recent Pain Score Pain Level 0 01/05/23 11:59 Assessment Mental Status: Awake (Alert & Oriented to Patient Baseline) Airway and Respiratory Function: Patent airway with normal (patient baseline) respiratory exam Cardiovascular Function: Hemodynamically Stable Hydration Status: Adequately Hydrated Nausea & Vomiting: No Nausea or Vomiting Pain: Pt. Denies Any Pain Peripheral Nerve Block: Regional nerve block not resolved at time of post operative discharge
[2023-01-05] MEDS: ceFAZolin 1 GM/50 ML BAG IVPB (13:06)
== END 2023-01-05 14:35 | disposition home or self-care (01) ==
PROVIDERS: PCP Family Medicine; Visit Provider Student in an Organized Health Care Education/Training Program
PROC: (CPT 23472; principal; 2023-01-05 07:30)
DX: M19.011 Primary osteoarthritis, right shoulder (principal); M75.101 Unspecified rotator cuff tear or rupture of right shoulder, not specified as traumatic; I10 Essential (primary) hypertension; M51.16 Intervertebral disc disorders with radiculopathy, lumbar region; M48.061 Spinal stenosis, lumbar region without neurogenic claudication
CPT/HCPCS: 23472; 76942; 73030; C1781; J0690; J1100; J2250; J2371; J2405; J2704

== ENCOUNTER 2023-01-18 11:20 | Outpatient (CLI) | payer MEDICARE, BC, SELFPAY ==
--- NOTE | 2023-01-18 11:00 | DI.RAD_ITS ---
Exam(s) XR SHOULDER RT COMPLETE 2+V EXAM: XR SHOULDER RT COMPLETE 2+V CLINICAL HISTORY: right shoulder f/u. TECHNIQUE: 2D digital imaging was performed. Two images were obtained. AP and Y views were obtained . COMPARISON: CR XR SHOULDER RT COMPLETE 2+V from 01/05/2023 FINDINGS: BONES: There are stable post operative changes present. No fracture or dislocation. JOINTS: The orthopedic hardware is in good position. No evidence of hardware loosening. There are d egenerative changes seen at the acromioclavicular joint. SOFT TISSUE: There is a stable round well corticated osseous density inferior to the glenohumeral hamida nt. IMPRESSION: Stable postoperative changes. DATA REPOSITORY: RADIATION DOSE DELIVERED:
== END 2023-01-18 11:21 | disposition home or self-care (01) ==
LOC: DIORS 11:20
PROVIDERS: PCP Family Medicine; Referring Provider Family Medicine; Visit Provider Student in an Organized Health Care Education/Training Program
DX: Z47.1 Aftercare following joint replacement surgery; Z96.611 Presence of right artificial shoulder joint
CPT/HCPCS: 73030

== ENCOUNTER → 2023-03-22 11:13 | Outpatient (BNVA) | payer MEDICARE, BC, SELFPAY | PROVIDERS: PCP Family Medicine; Referring Provider Family Medicine; Visit Provider Student in an Organized Health Care Education/Training Program | DX: Z47.1 Aftercare following joint replacement surgery (principal); Z96.611 Presence of right artificial shoulder joint; M12.811 Other specific arthropathies, not elsewhere classified, right shoulder ==

== ENCOUNTER 2024-01-16 15:51 | Outpatient (CLI) | payer MEDICARE, BC, SELFPAY ==
[2024-01-16 13:41] LABS: ALT 40 U/L (16-63); AST 30 U/L (15-37); Albumin 3.6 g/dL (3.4-5.0); Alkaline Phosphatase 108 U/L (46-116); Anion Gap 5.3 mmol/L (3-11); BUN 21 mg/dL (7-18); Bilirubin, Total 0.44 mg/dL (0.2-1.0); CO2 32.7 mmol/L (21.0-32.0); CREATININE 1.1 mg/dL (0.70-1.30); Calcium 9.3 mg/dL (8.5-10.1); Chloride 103 mmol/L (98-107); Estimated GFR 70.44 (mL/min/1.73m2); Glucose 138 mg/dL (74-106); Potassium 3.8 mmol/L (3.5-5.1); Sodium 141 mmol/L (136-145); Total Protein 7.8 g/dL (6.4-8.2)
== END 2024-01-16 15:52 | disposition home or self-care (01) ==
LOC: LBO 15:52
PROVIDERS: PCP Family Medicine; Visit Provider Family Medicine
DX: I10 Essential (primary) hypertension (principal)
CPT/HCPCS: 36415; 80053

== ENCOUNTER 2024-03-06 01:26 | Outpatient (CLI) | payer MEDICARE, BC, SELFPAY ==
--- NOTE | 2024-03-06 07:00 | DI.US_ITS ---
Exam(s) US AAA SCREENING EXAM: US AAA SCREENING CLINICAL HISTORY: H/O smoking,SCREENING FOR AAA,Z72.0 COMPARISON: CT CT ABDOMEN PELVIS W from 05/28/2021 FINDINGS: Abdominal Aorta: Proximal: 2.3 x 1.5 cm Mid: 1.8 x 1.3 cm Distal: 1.5 x 1.3 cm Iliac's: Right: 1.0 x 0.9 cm Left: 1.0 x 1.0 cm Atherosclerotic calcification is seen in the abdominal aorta. IMPRESSION: No evidence of abdominal aortic aneurysm. DATA REPOSITORY:
== END 2024-03-06 01:46 ==
LOC: DI 01:27
PROVIDERS: PCP Family Medicine; Visit Provider Family Medicine
DX: Z72.0 Tobacco use (principal); Z13.6 Encounter for screening for cardiovascular disorders
CPT/HCPCS: 76706

== ENCOUNTER 2025-02-28 01:09 | Outpatient (CLI) | payer MEDICARE, BC, SELFPAY ==
[2025-03-01 09:43] LABS: HIV-1/2 Ag & Ab Screen Negative (Negative)
[2025-03-03 09:17] LABS: HBs Antibody, Quant <3.1 mIU/mL (See Note); Hepatitis B Surface Ab Negative (See Note)
[2025-03-03 10:48] LABS: Hepatitis C Ab w Rflx HCV PCR Negative (Negative)
== END 2025-02-28 01:10 | disposition home or self-care (01) ==
LOC: LBO 01:09
PROVIDERS: PCP Family Medicine; Visit Provider Family Medicine
DX: Z11.59 Encounter for screening for other viral diseases (principal); Z11.4 Encounter for screening for human immunodeficiency virus [HIV]
CPT/HCPCS: 36415; 86706; 86803; 87389

== ENCOUNTER 2025-03-26 14:56 | Outpatient (CLI) | payer MEDICARE, BC, SELFPAY ==
--- NOTE | 2025-03-26 05:30 | DI.RAD_ITS ---
Exam(s) XR SHOULDER LT COMPLETE 2+V EXAM: XR SHOULDER LT COMPLETE 2+V CLINICAL HISTORY: l shoulder pain M25.512 PAIN LT SHOULDER G89.29 CHRONIC PAIN. TECHNIQUE: 2D digital imaging was performed of the left shoulder. Five images were obtained. AP, Grashey, Y-view and axillary views were obtained. COMPARISON: No exams were available for comparison FINDINGS: BONES: No acute fracture is present. No bony destructive lesion is seen. There is a small spur at the undersurface of the acromion. JOINTS: No dislocation present. At the glenohumeral joint, there is marked narrowing. There is an osteophyte at the inferior aspect of the humeral head. Subchondral sclerosis is seen on both sides of the joint. There are mild degenerative changes seen at the acromioclavicular joint. SOFT TISSUE: Normal. IMPRESSION: Marked degenerative changes seen at the glenohumeral joint. DATA REPOSITORY: RADIATION DOSE DELIVERED:
== END 2025-03-26 15:16 ==
LOC: DI 14:56
PROVIDERS: PCP Family Medicine; Visit Provider Family Medicine
DX: M25.512 Pain in left shoulder (principal); G89.29 Other chronic pain
CPT/HCPCS: 73030

== ENCOUNTER → 2025-04-23 10:21 | Outpatient (BNVA) | payer MEDICARE, BC, SELFPAY | PROVIDERS: PCP Family Medicine; Referring Provider Family Medicine; Visit Provider Student in an Organized Health Care Education/Training Program | DX: M19.012 Primary osteoarthritis, left shoulder (principal); Z96.611 Presence of right artificial shoulder joint | CPT/HCPCS: 99213 ==

== ENCOUNTER → 2025-07-07 00:11 | Outpatient (CLI) | payer MEDICARE, BC, SELFPAY ==
--- NOTE | 2025-07-07 10:52 | DI.CT_ITS ---
Exam(s) CT UPPER EXTREMITY LT WO EXAM: CT UPPER EXTREMITY LT WO CLINICAL HISTORY: SURGICAL PLANNING,ARTHRITIS LT GLENOHUMERAL JOINT,CHRONIC LT SHOULDER PAIN. TECHNIQUE: Imaging Protocol: Axial computed tomography images with coronal and sagittal reformatted images were created and reviewed. COMPARISON: CT CT UPPER EXTREMITY RT WO from 12/12/2022 CR XR SHOULDER LT COMPLETE 2+V from 03/26/2025 FINDINGS: Bones: The osseous structures and articular surfaces are intact. Bony alignment is satisfactory. There are mild degenerative changes seen at the acromioclavicular joint. Osteoarthritis is seen at the glenohumeral joint with marked asymmetric narrowing of the joint and osteophytes arising from both the glenoid and the humeral head. Subchondral cysts are present. There are well corticated osseous densities around the joint space which may represent loose bodies. No lytic or sclerotic lesions are identified. Soft Tissues: Normal. IMPRESSION: Marked osteoarthritis of the glenohumeral joint. RADIATION DOSE DELIVERED: 174.7mGy.cm Total DLP 174.7mGy.cm Total DLP DATA REPOSITORY: All CT scans at this facility are submitted to the National Radiology Data Registry (NRDR) Dose Index Registry (DIR) with the [employer] ([employer]). RADIATION OPTIMIZATION: All CT scans at this facility use at least one of these dose optimization techniques: automated exposure control; mA and/or kV adjustment per patient size (includes targeted exams where dose is matched to clinical indication); or iterative reconstruction.
== END ==
LOC: DI 00:11
PROVIDERS: PCP Family Medicine; Visit Provider Student in an Organized Health Care Education/Training Program
DX: M19.012 Primary osteoarthritis, left shoulder (principal)
CPT/HCPCS: 73200

== ENCOUNTER → 2025-07-08 10:35 | Outpatient (BNVA) | payer MEDICARE, BC, SELFPAY | PROVIDERS: PCP Family Medicine; Referring Provider Family Medicine; Visit Provider Student in an Organized Health Care Education/Training Program | DX: M19.012 Primary osteoarthritis, left shoulder (principal) | CPT/HCPCS: 99214 ==